=== PATIENT | female | born 1935 ===

== ENCOUNTER 2016-11-21 19:23 | Inpatient (IN) | payer MEDICARE, MEDICAID ==
[2016-11-21 19:24] VITALS: BMI 23.6
[2016-11-21] MEDS ORDERED: Nitroglycerin 2% Ointment Foilpak UD TOP STA (21:01)
[2016-11-21] MEDS ORDERED: Nitroglycerin 2% Ointment Foilpak UD TOP ONE (22:03)
[2016-11-21 22:05] LABS: BASO # 0.1 K/uL (0.0-0.2); BASO % 0.5 % (0.0-2.0); EOS # 0.2 K/uL (0.0-0.7); EOS % 1.6 % (0.0-4.0); HEMATOCRIT 42.1 % (34.0-47.0); LYMPH # 7.6 K/uL (1.0-4.3); LYMPH % 69.6 % (20.0-40.0); MEAN CELL VOLUME 88.9 fL (81.0-99.0); MEAN CORPUSCULAR HEMOGLOBIN 29.2 pg (27.0-31.0); MEAN CORPUSCULAR HGB CONC 32.9 g/dL (33.0-37.0); MEAN PLATELET VOLUME 8.7 fL (7.2-11.7); MONO # 0.5 K/uL (0.0-0.8); MONO % 4.5 % (0.0-10.0); NRBC % 0.1 % (0.0-2.0); RED CELL DISTRIBUTION WIDTH 15.9 % (11.5-14.5)
[2016-11-21 22:40] LABS: CHLORIDE 99 mmol/L (98-107); SODIUM 141 mmol/L (132-148)
[2016-11-21 22:42] LABS: BILIRUBIN,TOTAL 0.7 mg/dL (0.2-1.3); CARBON DIOXIDE 29 mmol/L (22-30); GFR AFRICAN-AMERICAN > 60
[2016-11-21 22:43] LABS: ALB/GLOB RATIO 1.4 (1.0-2.1); ALKALINE PHOSPHATASE 80 U/L (38-126); ALT/SGPT 25 U/L (9-52); AST/SGOT 50 U/L (14-36); BLOOD UREA NITROGEN 17 mg/dL (7-17); CALCIUM 8.6 mg/dl (8.6-10.4); GLUCOSE,RANDOM 91 mg/dL (65-105); TOTAL PROTEIN 6.8 g/dL (6.3-8.3)
--- NOTE | 2016-11-21 23:32 | C.PDOC ---
History Of Present Illness Patient is an 81 year old female who was referred to the ER by PMD for increased pedal edema and SOB. Patient takes daily diuretic. Denies any fever, nausea, or vomiting. Time Seen by Provider: 11/21/16 20:56 Chief Complaint (Nursing): Lower Extremity Problem/Injury History Per: Patient History/Exam Limitations: no limitations Onset/Duration Of Symptoms: Days Current Symptoms Are (Timing): Still Present Recent travel outside of the [place]: No Additional History Per: Patient Past Medical History Reviewed: Historical Data, Nursing Documentation, Vital Signs Vital Signs: Last Vital Signs Temp 97.9 F 11/21/16 19:55 Pulse 63 11/21/16 23:44 Resp 20 11/21/16 23:44 BP 136/90 11/21/16 23:44 Pulse Ox 95 11/21/16 23:44 - Medical History PMH: Alzheimer's Disease (Mild dementia and confusion noted), Anxiety, Arthritis (b/l knees and ankles), Asthma, Back Problems (scaitica), Bipolar Disorder (Patient used to take multiple medications, being seen by a psychiatrist), CAD, Cardia Arrhythmia (palpitation), COPD, CVA, Diverticulitis, Gastritis, HTN, Hypercholesterolemia, Hypothyroidism, Osteoporosis, Sleep Apnea Surgical History: Appendectomy, Cholecystectomy, - [facility] Procedures COLONOSCOPY (03/28/15) INJECT/INFUSE NEC (01/01/14) OCCUPATIONAL THERAPY (05/13/13) PHYSICAL THERAPY NEC (05/13/13) Family History: States: Unknown Family Hx - Social History Hx Tobacco Use: No Hx Alcohol Use: No Hx Substance Use: No - Immunization History Hx Tetanus Toxoid Vaccination: Yes Hx Influenza Vaccination: Yes Hx Pneumococcal Vaccination: Yes Review Of Systems Constitutional: Negative for: Fever Respiratory: Positive for: Shortness of Breath Gastrointestinal: Negative for: Nausea, Vomiting Musculoskeletal: Positive for: Other (Increased pedal edema) Physical Exam - Physical Exam Appears: Non-toxic Skin: Normal Color, Warm, Dry Head: Atraumatic, Normacephalic Oral Mucosa: Moist Chest: Symmetrical, No Tenderness Cardiovascular: Rhythm Regular, JVD Respiratory: Rales (Bilateral base), No Rhonchi, No Wheezing Gastrointestinal/Abdominal: Soft, No Tenderness Extremity: Pedal Edema (3/4 Bilateral) Neurological/Psych: Oriented x3, Normal Speech, Normal Cognition ED Course And Treatment - Laboratory Results Result Diagrams: 11/21/16 22:02 11/21/16 22:24 Lab Interpretation: Normal (trop/bnp neg.) ECG: Interpreted By Me ECG Rhythm: Sinus Rhythm ECG Interpretation: Normal Rate From EC O2 Sat by Pulse Oximetry: 97 Pulse Ox Interpretation: Normal - Radiology CXR: Interpreted by Me CXR Interpretation: Yes: Heart Size, Other (+CHF) Progress Note: EKG and CXR ordered. Lasix IVP and nitro-bid 2% ointment administered. Reevaluation Time: 23:34 Reassessment Condition: Improved - Physician Consult Information Outcome Of Conversation: 2330: d/w Dr. Aiken- salvador referred- ok to Tele Obs. Medical Decision Making Medical Decision Making: Clinical CHF, normal BNP Disposition Doctor Will See Patient In The: Office Counseled Patient/Family Regarding: Studies Performed, Diagnosis - Disposition Disposition: HOSPITALIZED Disposition Time: 23:34 Condition: GOOD - Clinical Impression Clinical Impression: CHF (congestive heart failure) - Scribe Statement The provider has reviewed the documentation as recorded by the Scribraine Boswell All medical record entries made by the Scribe were at my direction and personally dictated by me. I have reviewed the chart and agree that the record accurately reflects my personal performance of the history, physical exam, medical decision making, and the department course for this patient. I have also personally directed, reviewed, and agree with the discharge instructions and disposition.
[2016-11-22] MEDS ORDERED: Magnesium Hydroxide Susp 30 ml UD PO PRN (00:28)
[2016-11-22 05:51] LABS: BASO % 0.4 % (0.0-2.0); EOS # 0.2 K/uL (0.0-0.7); EOS % 1.6 % (0.0-4.0); HEMATOCRIT 43.9 % (34.0-47.0); LYMPH # 7.8 K/uL (1.0-4.3); LYMPH % 74.7 % (20.0-40.0); MEAN CORPUSCULAR HEMOGLOBIN 29.2 pg (27.0-31.0); MEAN CORPUSCULAR HGB CONC 32.8 g/dL (33.0-37.0); MEAN PLATELET VOLUME 8.4 fL (7.2-11.7); MONO # 0.5 K/uL (0.0-0.8); MONO % 4.7 % (0.0-10.0); NRBC % 0.2 % (0.0-2.0); PLATELET COUNT 143 K/uL (130-400); RED CELL DISTRIBUTION WIDTH 16.3 % (11.5-14.5); WHITE BLOOD COUNT 10.5 K/uL (4.8-10.8)
[2016-11-22 06:01] LABS: CHLORIDE 103 mmol/L (98-107); POTASSIUM 3.3 mmol/L (3.6-5.2); SODIUM 144 mmol/L (132-148)
[2016-11-22 06:03] LABS: GFR AFRICAN-AMERICAN > 60
[2016-11-22 06:04] LABS: ALB/GLOB RATIO 1.4 (1.0-2.1); ALKALINE PHOSPHATASE 85 U/L (38-126); ALT/SGPT 35 U/L (9-52); AST/SGOT 39 U/L (14-36); BILIRUBIN,TOTAL 0.6 mg/dL (0.2-1.3); BLOOD UREA NITROGEN 15 mg/dL (7-17); CARBON DIOXIDE 29 mmol/L (22-30); GLUCOSE,RANDOM 86 mg/dL (65-105); TOTAL PROTEIN 6.5 g/dL (6.3-8.3)
[2016-11-22 06:05] LABS: CALCIUM 8.7 mg/dl (8.6-10.4)
[2016-11-22] MEDS: Levothyroxine 75 MCG TAB PO SCH (06:16)
[2016-11-22 06:32] LABS: EOSINOPHIL 2 % (0-4); NEUTROPHIL 9 % (50-75); REACTIVE LYMPHOCYTES 66 % (0-0); SMUDGE CELLS PRESENT; TOTAL CELLS COUNTED 100
--- NOTE | 2016-11-22 08:26 | RAD ---
HISTORY: SOB COMPARISON: Chest x-ray performed 08/09/16 TECHNIQUE: Chest, one view. FINDINGS: LUNGS: Mild pulmonary venous congestion. No focal consolidation. Please note that chest x-ray has limited sensitivity for the detection of pulmonary masses. PLEURA: No significant pleural effusion identified. No definite pneumothorax . CARDIOVASCULAR: Overlying cardiomegaly. Atherosclerotic calcifications of the aorta. OSSEOUS STRUCTURES: Degenerative changes. VISUALIZED UPPER ABDOMEN: Unremarkable. OTHER FINDINGS: None. IMPRESSION: Mild pulmonary venous congestion.
[2016-11-22] MEDS: Enoxaparin 30 mg Syringe SC SCH (10:09)
[2016-11-22] MEDS: Multivitamin With Minerals Tab PO SCH (10:09)
--- NOTE | 2016-11-22 13:41 | CP.PCM.HP ---
History of Present Illness - History of Present Illness History of Present Illness: COMPREHENSIVE HISTORY & PHYSICAL EXAM HPI PRESENTED TO ER WITH SOB AND PROGRESSIVE EDEMA OF LEGS. PT CLINICALLY HAD CHF AND IMPROVED ON DIURESIS . PT HAS LESS SOB. NO CP PAST HIST. HTN/TIA/VERTIGO/CHF/COPD/ PERSONAL HIST: Smoking. N Alcohol. N Allergy N Travel_- . FAMILY HIST : ROS : Constitutional: Negative for weight change, chills, night sweats, POS fatigue and usage of assist device. Eyes: Negative for redness, swelling, itching, discharge, vision changes, blurry vision, double vision, glaucoma, cataracts, Ears: Negative for hearing loss, ringing, , tinnitus, vertigo Nose: Negative for rhinorrhea, stuffiness, sniffing, itching, postnasal drip, discoloration, nasal congestion and epistaxis. Throat: Negative for throat clearing, sore throat, hoarseness, difficulty swallowing and difficulty speaking. Respiratory: Negative for cough, chest tightness, sputum or phlegm, chronic cough, hemoptysis, wheezing, snoring at night, pleuritic chest pain and daytime somnolence. Cardiovascular POS FOR palpitations, orthopnea, PND, Edema of legs, leg cramps , NO angina, claudication, , irregular heartbeat, Neurology: Negative for irritability, muscle weakness, numbness and tingling, seizures, tremors, migraines, slurred speech, syncope, memory loss, mood changes , recurrent headaches Gastrointestinal: Negative for difficulty swallowing, diarrhea, constipation, black stools, rectal bleeding, nausea, flatulence, reflux, poor appetite, changes in bowel habits, abdominal pain Genitourinary: Negative for frequent urination, hematuria, discharge, incontinence, urinary retention, frequent UTI, Psychiatric: Negative for depression, anxiety/panic, suicidal tendencies, Musculoskeletal: Negative for swollen joints, back pain, , neck pain, morning stiffness of joints, . Skin: Negative for rash, ulcers, itching, dry skin and pigmented lesions. P/E: Constitutional: Appears stated age and in no apparent distress. Head: Normocephalic. Ears: External ear canals patent without inflammation. Tympanic membranes intact with normal light reflex and landmark. Eyes: Pupils are central, bilaterally equal, symmetrical and reacts to light with normal movements and no icterus or pallor. Nose: External nares are patent. Mucosa is pink Mouth-Throat: Good general appearance and condition. No post-pharyngeal/oropharyngeal erythema and tonsillar hypertrophy. Good dental hygiene. Neck-Lymphatic: Neck is supple with normal ROM, no thyromegaly, lymph nodes or masses. JVD is normal with no carotid bruit. Lungs: CORTNEY CREPTS Cardiovascular: S1 and S2 are normal with no murmurs, gallops and rub. GI Exam: No hepatomegaly. Abdomen is soft and non-tender. No Organomegaly , masses or hernias are evident and bowel sounds are normal and active. Neurology: Higher function and all cranial nerves intact, with no gross motor or sensory deficit. Superficial and deep reflexes are normal with downwards planters. No cerebellar deficit with normal gait. Musculoskeletal: No tender spots with normal curvature of the spine with no swelling or restricted ROM of the small and large joints. Extremities: Homans sign absent. Intact pulses with no pitting edema, calf tenderness or skin color changes. Skin: No rash, eruptions or abnormal skin pigmentation LAB/RADIOLOGY: ASSESMENT : NORMAL EF LV ACUTE DIASTOLIC HF HTN VERTIGO PLAN: DIURETICS JOHNNY INHIBITOR Present on Admission - Present on Admission Any Indicators Present on Admission: No Past Patient History - Infectious Disease Hx of Infectious Diseases: None - Tetanus Immunizations Tetanus Immunization: Up to Date - Past Medical History & Family History Past Medical History?: Yes - Past Social History Smoking Status: Former Smoker - CARDIAC Hx Cardia Arrhythmia: Yes (palpitation) Hx Hypercholesterolemia: Yes Hx Hypertension: Yes - PULMONARY Hx Asthma: Yes Hx Chronic Obstructive Pulmonary Disease (COPD): Yes Hx Sleep Apnea: Yes - NEUROLOGICAL Hx Alzheimer's Disease: Yes (Mild dementia and confusion noted) - HEENT Hx HEENT Problems: Yes Hx Deafness: Yes (LEFT EAR) - RENAL Hx Chronic Kidney Disease: No - ENDOCRINE/METABOLIC Hx Hypothyroidism: Yes - INTEGUMENTARY Hx Dermatological Problems: Yes Hx Basil Cell: Yes (FACE, ARMS) - MUSCULOSKELETAL/RHEUMATOLOGICAL Hx Arthritis: Yes (b/l knees and ankles) Hx Osteoporosis: Yes - GASTROINTESTINAL Hx Diverticulitis: Yes Hx Gastritis: Yes - GENITOURINARY/GYNECOLOGICAL Hx Genitourinary Disorders: Yes Hx Incontinence: Yes - PSYCHIATRIC Hx Anxiety: Yes Hx Bipolar Disorder: Yes (Patient used to take multiple medications, being seen by a psychiatrist) Hx Substance Use: No - SURGICAL HISTORY Hx Appendectomy: Yes Hx Cholecystectomy: Yes - ANESTHESIA Hx Anesthesia: Yes Hx Anesthesia Reactions: No Hx Malignant Hyperthermia: No Meds Allergies/Adverse Reactions: Allergies Allergy/AdvReac Type Severity Reaction Status Date / Time Carbapenems Allergy Intermediate Verified 11/21/16 20:01 Cephalosporins Allergy Intermediate Verified 11/21/16 20:01 aztreonam Allergy Mild Verified 11/21/16 20:01 aspirin Allergy Verified 11/21/16 20:01 ciprofloxacin [From Cipro] Allergy Verified 11/21/16 20:01 ciprofloxacin HCl Allergy Verified 11/21/16 20:01 [From Cipro] Penicillins Allergy Verified 11/21/16 20:01 Results - Vital Signs Recent Vital Signs: Last Vital Signs Temp 98 F 11/22/16 13:12 Pulse 70 11/22/16 13:12 Resp 18 11/22/16 13:12 BP 144/82 11/22/16 13:12 Pulse Ox 96 11/22/16 13:12 - Labs Result Diagrams: 11/24/16 14:17 11/24/16 14:17 Labs: Laboratory Results - last 24 hr 11/22/16 11/22/16 11/22/16 05:48 05:48 05:48 WBC 10.5 RBC 4.93 Hgb 14.4 Hct 43.9 MCV 89.0 MCH 29.2 MCHC 32.8 L RDW 16.3 H Plt Count 143 MPV 8.4 Neut % (Auto) 18.6 L Lymph % (Auto) 74.7 H [place] % (Auto) 4.7 Eos % (Auto) 1.6 Baso % (Auto) 0.4 Neut # 2.0 Lymph # 7.8 H [place] # 0.5 Eos # 0.2 Baso # 0.0 Neutrophils % (Manual) 9 L Lymphocytes % (Manual) 18 L Reactive Lymphs % 66 H Monocytes % (Manual) 5 Eosinophils % (Manual) 2 Smudge Cells Present Platelet Estimate Normal Sodium 144 Potassium 3.3 L Chloride 103 Carbon Dioxide 29 Anion Gap 15 BUN 15 Creatinine 0.7 Est GFR ( Amer) > 60 Est GFR (Non-Af Amer) > 60 Random Glucose 86 Calcium 8.7 Total Bilirubin 0.6 AST 39 H D ALT 35 Alkaline Phosphatase 85 Total Creatine Kinase 187 H CK-MB (Mass) 2.66 Troponin I, Quant < 0.0120 Total Protein 6.5 Albumin 3.8 Globulin 2.7 Albumin/Globulin Ratio 1.4
--- NOTE | 2016-11-22 20:07 | CON ---
DATE: 11/22/2016 CHIEF COMPLAINT AND REASON FOR CONSULTATION: The patient was referred by Dr. Aiken for evaluation and co-management of depression and anxiety. The patient is well known to this doctor. HISTORY OF PRESENT ILLNESS: This is the case of an 81-year-old female with a history of depression and anxiety for many years and possible early onset dementia. The patient came to the Emergency Room complaining of increased swelling of her lower extremities as well as associated shortness of breath and bipedal edema. The patient states she has been taking diuretics, but she states this became worse and she was admitted for possible exacerbation of congestive heart failure. The patient was referred for comanagement as the patient has a history of depression and anxiety. The patient was last seen in my office last Thursday for a follow up and she was taking Remeron and Xanax and was doing well. The patient was ambulating well. She was still attending her day program at [employer] but complaining that she has been drinking a lot fluid and watching her salt, but she noticed that her legs are becoming more swollen and also she has having problems breathing. She said that she has been taking a diuretic but it was not working and was admitted for treatment. The patient is very worried about her swollen extremities as this patient lives alone. PAST PSYCHIATRIC HISTORY: Has a long history of depression and anxiety. The patient has been my patient for many, many years. She was recently in rehab at [facility]. She was seen earlier this week in my office for followup. Still on Xanax and Remeron. The patient has a history of chronic insomnia and anxiety. She has tried Ambien in the past. PAST MEDICAL HISTORY: History of dementia, history of arthritis, back problems , CAD, history of gastritis, hypothyroidism, osteoporosis, sleep apnea. DRUG AND ALCOHOL HISTORY: Denies any. ALLERGIES: THE PATIENT IS ALLERGIC TO ASPIRIN, CIPRO, PENICILLIN, AZTREONAM, CEPHALOSPORIN, CARBAPENEMS. DRUG AND ALCOHOL HISTORY: Denies any. PSYCHOSOCIAL HISTORY: The patient lives by herself. 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 The patient attends the [employer] program for day structure. CURRENT MEDICATIONS: The patient is on Apresoline, Catapres, Crestor, Flomax, Lasix, Lovenox, Pepcid, Plavix, Remeron 45 mg at bedtime, Xanax 1 mg q.8, Tenormin, Synthroid. LABORATORY DATA: The patient's WBC is 10.5, H and H is 14.4/43.9. Creatinine is 0.7, albumin is 3.8, globulin is 2.7. VITAL SIGNS: Temperature is 98, pulse is 70, blood pressure is 144/82, respiration is 18, and oxygen saturation is 96. REVIEW OF SYSTEMS: GENERAL: The patient is feeling weak, but alert and oriented x 3. She is forgetful at times. She is lying in bed. SKIN: No diaphoresis. HEENT: No headache, no dizziness. NECK: Supple. RESPIRATORY: No dyspnea. CARDIOVASCULAR: No chest pain. GASTROINTESTINAL: She has no nausea or vomiting. EXTREMITIES: Complaining of swelling of her lower extremities, especially in the foot. NEUROLOGIC: Forgetful at times. GENITOURINARY: No dysuria. MENTAL STATUS EXAMINATION: Elderly female who looks stated age, about 5 feet 8 inches, weight is 182 pounds. Mood is anxious, somatic. Not depressed. Affect is reactive. Speech spontaneous. Thought process: Coherent but forgetful at times. Thought content: Preoccupied about her medical problems. No suicidal or homicidal ideation. Attention and memory seems to be limited at times. Insight and judgment fair. Impulse control is fair. IMPRESSION: History of major depression, recurrent, anxiety disorder as well as to consider mild senile dementia. PLAN AND RECOMMENDATION: The patient seen, meds reviewed. The patient is to continue Xanax 1 mg q.8 for her anxiety; however, the patient is on a high dose of Remeron. Remeron being an SSRI can cause water retention as a side effect, which can cause swelling of her lower extremities. I will discontinue that and I gave instead Ambien 5 mg at bedtime to help her sleep. The patient has tried Ambien in the past. We will try to keep patient off SSRI for now as the patient is depressed and the patient is having some swelling of her lower extremities secondary to water retention. The patient now is taking Lasix. We will try to introduce an antidepressant should the need arises, but for now will keep her on Xanax and then low dose Ambien for her insomnia. The patient has chronic insomnia. The patient also has a history of sleep apnea. Continue treatment plan as outlined. Thank you very much for the consult. Reginadl De Leon MD cc: [phone] TT: 11/22/2016 20:06:20 Confirmation # [id number] Dictation # [id number] MTDD
[2016-11-22 20:18] LABS: RBC URINE 1 /hpf (0-3); URINE BACTERIA RARE (<OCC); URINE BILIRUBIN NEGATIVE (NEGATIVE); URINE BLOOD NEGATIVE (NEGATIVE); URINE COLOR Yellow (YELLOW); URINE GLUCOSE (UA) NORMAL (Normal); URINE KETONE NEGATIVE (NEGATIVE); URINE PROTEIN NEGATIVE (NEGATIVE); URINE UROBILINOGEN NORMAL mg/dL (0.2-1.0); WBC URINE 9 /hpf (0-5)
[2016-11-22 20:20] LABS: URINE LEUKOCYTE ESTERASE TRACE Leu/uL (Negative)
[2016-11-23] MEDS: Levothyroxine 75 MCG TAB PO SCH (06:09)
[2016-11-23 09:06] LABS: BASO % 0.2 % (0.0-2.0); EOS # 0.1 K/uL (0.0-0.7); EOS % 1.2 % (0.0-4.0); HEMATOCRIT 43.9 % (34.0-47.0); LYMPH # 7.3 K/uL (1.0-4.3); LYMPH % 70.7 % (20.0-40.0); MEAN CELL VOLUME 89.3 fL (81.0-99.0); MEAN CORPUSCULAR HGB CONC 32.5 g/dL (33.0-37.0); MEAN PLATELET VOLUME 8.9 fL (7.2-11.7); MONO # 0.4 K/uL (0.0-0.8); MONO % 3.6 % (0.0-10.0); PLATELET COUNT 165 K/uL (130-400); WHITE BLOOD COUNT 10.3 K/uL (4.8-10.8)
[2016-11-23 09:33] LABS: CHLORIDE 101 mmol/L (98-107); SODIUM 141 mmol/L (132-148)
[2016-11-23 09:34] LABS: POTASSIUM 3.2 mmol/L (3.6-5.2)
[2016-11-23 09:36] LABS: ALB/GLOB RATIO 1.3 (1.0-2.1); ALKALINE PHOSPHATASE 73 U/L (38-126); AST/SGOT 37 U/L (14-36); BILIRUBIN,TOTAL 0.5 mg/dL (0.2-1.3); BLOOD UREA NITROGEN 18 mg/dL (7-17); CALCIUM 8.8 mg/dl (8.6-10.4); CARBON DIOXIDE 31 mmol/L (22-30); GFR AFRICAN-AMERICAN > 60; GLUCOSE,RANDOM 94 mg/dL (65-105); TOTAL PROTEIN 6.3 g/dL (6.3-8.3)
[2016-11-23 09:37] LABS: ALT/SGPT 35 U/L (9-52)
[2016-11-23 09:56] LABS: TOTAL CELLS COUNTED 100
[2016-11-23 09:57] LABS: NEUTROPHIL 11 % (50-75); REACTIVE LYMPHOCYTES 30 % (0-0)
[2016-11-23] MEDS ORDERED: Ergocalciferol 50,000 Intl Units Cap PO SCH (10:00)
[2016-11-23] MEDS: Enoxaparin 30 mg Syringe SC SCH (10:25)
[2016-11-23] MEDS: Multivitamin With Minerals Tab PO SCH (10:27)
--- NOTE | 2016-11-23 14:15 | CP.PCM.PN ---
Subjective - Date & Time of Evaluation Date of Evaluation: 11/23/16 Time of Evaluation: 14:14 - Subjective Subjective: TNI ARE NEG EKG NO CHANGE ON IV LASIX LABS [place] AMBULATE Objective - Vital Signs/Intake and Output Vital Signs (last 24 hours): Temp Pulse Resp BP Pulse Ox 97.7 F 65 20 124/73 95 11/23/16 08:25 11/23/16 08:25 11/23/16 08:25 11/23/16 10:27 11/23/16 08:25 - Medications Medications: Current Medications Acetaminophen (Tylenol 325mg Tab) 650 mg PO Q4H PRN PRN Reason: Pain, Mild (1-3) Last Admin: 11/23/16 04:50 Dose: 650 mg Alprazolam (Xanax) 1 mg PO Q8H [facility] Last Admin: 11/23/16 08:33 Dose: 1 mg Atenolol (Tenormin) 50 mg PO BID [facility] Last Admin: 11/23/16 10:26 Dose: 50 mg Clonidine HCl (Catapres) 0.2 mg PO BID [facility] Last Admin: 11/23/16 10:26 Dose: 0.2 mg Clopidogrel Bisulfate (Plavix) 75 mg PO DAILY [facility] Last Admin: 11/23/16 10:27 Dose: 75 mg Enoxaparin Sodium (Lovenox) 30 mg SC DAILY [facility] Last Admin: 11/23/16 10:25 Dose: 30 mg Ergocalciferol (Drisdol 50,000 Intl Units Cap) 1 cap PO QWK [facility] Last Admin: 11/23/16 10:26 Dose: 1 cap Famotidine (Pepcid) 20 mg PO BID [facility] Last Admin: 11/23/16 10:26 Dose: 20 mg Furosemide (Lasix) 40 mg IVP DAILY [facility] Last Admin: 11/23/16 10:27 Dose: 40 mg Hydralazine HCl (Apresoline) 50 mg PO BID [facility] Last Admin: 11/23/16 10:26 Dose: 50 mg Levothyroxine Sodium (Synthroid) 75 mcg PO DAILY@0630 [facility] Last Admin: 11/23/16 06:09 Dose: 75 mcg Lisinopril (Zestril) 40 mg PO DAILY [facility] Last Admin: 11/23/16 10:26 Dose: 40 mg Magnesium Hydroxide (Milk Of Magnesia) 30 ml PO DAILY PRN PRN Reason: Constipation Multivitamins/Minerals (Therapeutic-M Tab) 1 tab PO DAILY [facility] Last Admin: 11/23/16 10:27 Dose: 1 tab Rosuvastatin Calcium (Crestor) 5 mg PO HS [facility] Last Admin: 11/22/16 21:58 Dose: 5 mg Tamsulosin HCl (Flomax) 0.4 mg PO DAILY [facility] Last Admin: 11/23/16 10:26 Dose: 0.4 mg Zolpidem Tartrate (Ambien) 5 mg PO HS [facility] Last Admin: 11/22/16 21:58 Dose: 5 mg - Labs Labs: 11/23/16 08:55 11/23/16 08:55 PT 10.8 SECONDS (9.7-12.2) 11/21/16 22:02 INR 1.0 11/21/16 22:02 APTT 29 SECONDS (21-34) 11/21/16 22:02
--- NOTE | 2016-11-23 17:41 | PN ---
DATE: 11/23/2016 SUBJECTIVE: The patient is seen. The patient states she slept better last night. The nurse reporte harini patient brought a big bag of all her medicines to the hospital, about 18 pill bottles and the pill bottles were given to the pharmacy. The patient has periods of confusion and told that she should st reamline her medication as patient is taking her meds sometimes not as prescribed. I took her off th e Remeron due to her swelling of her lower extremities and that patient also may have some Ambien 5 m g at bedtime and her Xanax. The patient should dispose all her meds that she is not using to avoid c onfusion of the intake of her meds. VITAL SIGNS: Temperature is 97.3, pulse rate 61, 96/65, respirations 20, oxygen saturation is 98%. REVIEW OF SYSTEMS: GENERAL: The patient is alert, verbal, forgetful, seen in her room, resting. She said she had a goo d sleep last night. The patient stated she was told by Dr. Aiken she will be staying here a few mor e days. SKIN: No diaphoresis. HEENT: No headache, no dizziness. NECK: Supple. RESPIRATORY: No dyspnea. CARDIOVASCULAR: No chest pain. GASTROINTESTINAL: She is eating better. EXTREMITIES: Swelling improving. Her gait is unsteady. GENITOURINARY: No dysuria. NEUROLOGIC: Alert, forgetful. MENTAL STATUS EXAMINATION: Elderly female, looks stated age, oriented x 3, but forgetful. Speech sp ontaneous. Affect is reactive. Mood is calm. Thought process forgetful. Thought content: The pat ient reports no psychosis. No suicidal or homicidal ideation. Attention and memory still limited. Insight and judgment limited. Impulse control is fair at this time. IMPRESSION: History of recurrent depression, anxiety and dementia. PLAN AND RECOMMENDATIONS: The patient seen, meds reviewed. Continue Xanax 1 mg q. 8 as well as Ambi en 5 mg at bedtime. The patient should dispose her medicines that she is not taking as patient has a big bag of collections and has periods of confusion and may take the medicine by mistake. Reginald De Leon MD cc: [phone] TT: 11/23/2016 17:39:57 Confirmation # [id number] Dictation # [id number]
[2016-11-23] MEDS ORDERED: Potassium Chloride 20 mEq ER Tab PO STA (23:43)
[2016-11-24] MEDS: Levothyroxine 75 MCG TAB PO SCH (06:14)
[2016-11-24] MEDS: Enoxaparin 30 mg Syringe SC SCH (09:59)
[2016-11-24] MEDS: Multivitamin With Minerals Tab PO SCH (10:01)
--- NOTE | 2016-11-24 12:35 | CP.PCM.PN ---
Subjective - Date & Time of Evaluation Date of Evaluation: 11/24/16 Time of Evaluation: 12:34 - Subjective Subjective: CHIEF COMPLAINTS TODAY : LESS SOB EDEMA OF LEGS DECREASING WEAKNESS ON AMBULATION ROS. HEENT : N. Resp : No cough, wheezing ,pleuritic CP ,or hemoptysis Cardio : No anginal CP, PND, orthopnea, palpitation GI : No abd.pain, n/v ,diarrhea or GI bleeding . SPORTS DIRECTOR : No headache, vertigo, focal deficit. Musculoskel : No joint swelling , Derm : No rash Psych : Normal affect. Ext : No swelling ,calf pain PE. Pt. is alert awake in no distress. V.S As noted in the chart Head ,ear nose,throat and eyes : Normal. Neck : Supple with normal carotids. Lungs: BASAL CREPTS Heart : S1 & S2 normal with S4. No murmur. Abd : Soft non tender with normal bowel sounds. Neuro : Moves all ext. with no localized deficit. Ext : +2 edema with intact pulses.Non tender calves Derm : No rashes or decubitus ulcer. LABS/RADIOLOGY: ASSESSMENT/PLAN : IV LASIX MONITOR BP Objective - Vital Signs/Intake and Output Vital Signs (last 24 hours): Temp Pulse Resp BP Pulse Ox 97.8 F 65 18 117/70 98 11/24/16 07:20 11/24/16 09:00 11/24/16 07:20 11/24/16 11:57 11/24/16 07:20 Intake and Output: 11/24/16 11/24/16 11:59 23:59 Intake Total 240 Balance 240 - Medications Medications: Current Medications Acetaminophen (Tylenol 325mg Tab) 650 mg PO Q4H PRN PRN Reason: Pain, Mild (1-3) Last Admin: 11/23/16 04:50 Dose: 650 mg Alprazolam (Xanax) 1 mg PO Q8H [facility] Last Admin: 11/24/16 10:00 Dose: 1 mg Atenolol (Tenormin) 50 mg PO BID [facility] Last Admin: 11/24/16 10:00 Dose: 50 mg Clonidine HCl (Catapres) 0.2 mg PO BID [facility] Last Admin: 11/24/16 10:01 Dose: 0.2 mg Clopidogrel Bisulfate (Plavix) 75 mg PO DAILY [facility] Last Admin: 11/24/16 10:00 Dose: 75 mg Enoxaparin Sodium (Lovenox) 30 mg SC DAILY [facility] Last Admin: 11/24/16 09:59 Dose: 30 mg Ergocalciferol (Drisdol 50,000 Intl Units Cap) 1 cap PO QWK [facility] Last Admin: 11/23/16 10:26 Dose: 1 cap Famotidine (Pepcid) 20 mg PO BID [facility] Last Admin: 11/24/16 10:01 Dose: 20 mg Furosemide (Lasix) 40 mg IVP DAILY [facility] Last Admin: 11/24/16 11:57 Dose: 40 mg Hydralazine HCl (Apresoline) 50 mg PO BID [facility] Last Admin: 11/24/16 09:59 Dose: 50 mg Levothyroxine Sodium (Synthroid) 75 mcg PO DAILY@0630 [facility] Last Admin: 11/24/16 06:14 Dose: 75 mcg Lisinopril (Zestril) 40 mg PO DAILY [facility] Last Admin: 11/24/16 10:00 Dose: 40 mg Magnesium Hydroxide (Milk Of Magnesia) 30 ml PO DAILY PRN PRN Reason: Constipation Multivitamins/Minerals (Therapeutic-M Tab) 1 tab PO DAILY [facility] Last Admin: 11/24/16 10:01 Dose: 1 tab Rosuvastatin Calcium (Crestor) 5 mg PO HS [facility] Last Admin: 11/23/16 22:15 Dose: 5 mg Tamsulosin HCl (Flomax) 0.4 mg PO DAILY [facility] Last Admin: 11/24/16 10:01 Dose: 0.4 mg Zolpidem Tartrate (Ambien) 5 mg PO HS [facility] Last Admin: 11/23/16 22:15 Dose: 5 mg - Labs Labs: 11/23/16 08:55 11/23/16 08:55 PT 10.8 SECONDS (9.7-12.2) 11/21/16 22:02 INR 1.0 11/21/16 22:02 APTT 29 SECONDS (21-34) 11/21/16 22:02
--- NOTE | 2016-11-24 14:15 | PN ---
DATE: 11/24/2016 SUBJECTIVE: The patient is seen. The patient continues to improve clinically. She claims that her swelling of her legs has improved. The patient, however, is still forgetful. She states she had a g ood night's sleep. The patient seems to do better with the Ambien and Xanax combination. She has be en taken off the Remeron as Remeron can cause water retention side effects which can cause swelling o f her lower extremities. The patient is not clinically depressed at this time. VITAL SIGNS: Temperature is 97.8, pulse is 65, blood pressure 117/70, respirations 18, oxygen sats 9 8%. REVIEW OF SYSTEMS: GENERAL: The patient is alert, verbal, still forgetful at times, but seen in her room, sitting, eati ng her lunch. SKIN: No diaphoresis. HEENT: No headache, no dizziness. NECK: Supple. RESPIRATORY: No dyspnea. CARDIOVASCULAR: No chest pain. GASTROINTESTINAL: She is eating better. EXTREMITIES: Swelling of the lower extremities has improved. MUSCULOSKELETAL: Still weakness, improving. NEUROLOGIC: Alert, oriented x 3, but forgetful at times. The patient also states she does not want to go for subacute rehab; she wants to go home once medically cleared. MENTAL STATUS EXAMINATION: Elderly female who looks dazed. Alert, oriented x 3 with periods of forg etfulness, which have progressed more lately. Speech spontaneous. Affect is reactive. Mood is calm . Thought process forgetful. Thought content: The patient wants to go home once she is medically c leared from the hospital. No psychosis. No suicidal or homicidal ideation. Attention and memory se ems to be limited. Insight and judgment fair. Impulse control is fair. IMPRESSION: History of recurrent depression and anxiety as well as possible dementia, history of con gestive heart failure. PLAN AND RECOMMENDATIONS: The patient seen, meds reviewed. Continue present psych meds. Continue t reatment plan. However, the patient has a bag of medications that she brought to the hospital. The patient needs to have her medications streamlined and also unnecessary meds to be disposed as the martha buck has a history of dementia and may take her meds by mistake. She also wants to go back to the [facility] program where she goes 5 days a week and she would benefit from a visiting nurse to visit her. T he patient needs somebody to monitor her meds. Despite that the patient has been compliant with medi cation, but the patient lately has been having increasing periods of memory loss, which can put her at risk of taking other medication by mistake. At times, the patient takes medications by mistake, a nd the patient at times does not know the doses of the medicine that she is supposed to take. Reginald De Leon MD cc: [id number] TT: 11/24/2016 14:14:36 Confirmation # [id number] Dictation # [id number] an
[2016-11-24 14:30] LABS: CHLORIDE 102 mmol/L (98-107); SODIUM 142 mmol/L (132-148)
[2016-11-24 14:31] LABS: POTASSIUM 3.5 mmol/L (3.6-5.2)
[2016-11-24 14:33] LABS: ALB/GLOB RATIO 1.3 (1.0-2.1); ALKALINE PHOSPHATASE 89 U/L (38-126); ALT/SGPT 33 U/L (9-52); AST/SGOT 43 U/L (14-36); BASO % 0.3 % (0.0-2.0); BILIRUBIN,TOTAL 0.4 mg/dL (0.2-1.3); BLOOD UREA NITROGEN 20 mg/dL (7-17); CALCIUM 8.6 mg/dl (8.6-10.4); CARBON DIOXIDE 28 mmol/L (22-30); EOS # 0.1 K/uL (0.0-0.7); EOS % 1.1 % (0.0-4.0); GFR AFRICAN-AMERICAN > 60; GLUCOSE,RANDOM 117 mg/dL (65-105); HEMATOCRIT 43.5 % (34.0-47.0); LYMPH # 7.4 K/uL (1.0-4.3); LYMPH % 73.1 % (20.0-40.0); MEAN CELL VOLUME 89.2 fL (81.0-99.0); MEAN CORPUSCULAR HEMOGLOBIN 29.6 pg (27.0-31.0); MEAN CORPUSCULAR HGB CONC 33.2 g/dL (33.0-37.0); MEAN PLATELET VOLUME 8.9 fL (7.2-11.7); MONO # 0.4 K/uL (0.0-0.8); MONO % 3.8 % (0.0-10.0); PLATELET COUNT 157 K/uL (130-400); TOTAL PROTEIN 6.4 g/dL (6.3-8.3); WHITE BLOOD COUNT 10.1 K/uL (4.8-10.8)
[2016-11-24 15:40] LABS: NEUTROPHIL 11 % (50-75); REACTIVE LYMPHOCYTES 40 % (0-0); TOTAL CELLS COUNTED 100
[2016-11-25] MEDS: Levothyroxine 75 MCG TAB PO SCH (06:19)
[2016-11-25 08:06] VITALS: RESP 18; TEMP 98.3; O2SAT 95
[2016-11-25] MEDS ORDERED: Potassium Chloride 20 mEq ER Tab PO ONE (10:15)
--- NOTE | 2016-11-25 10:43 | PN ---
DATE: 11/25/2016 SUBJECTIVE: The patient is seen. The patient states she will be going home today. The swelling of her lower extremities has improved. The patient, however, still has periods of forgetfulness and adv ised to streamline her meds. The patient is currently sleeping better. Currently on Ambien and Xana x combination. VITAL SIGNS: Temperature is 98.3, pulse rate 73, blood pressure 160/93, respiration is 18, oxygen sa t is 95%. The patient does not want to go to rehab at this time. She wants to go home. REVIEW OF SYSTEMS: GENERAL: The patient is alert, verbal, oriented x 3, seen in her room, clinically much improved. Th e patient wants to go home today. SKIN: No diaphoresis. HEENT: No headache, no dizziness. NECK: Supple. RESPIRATORY: No dyspnea. CARDIOVASCULAR: No chest pain. GASTROINTESTINAL: She is eating well. EXTREMITIES: The swelling has improved. The patient is also ambulating. MUSCULOSKELETAL: Weakness improving. NEUROLOGIC: Alert, oriented x 3, but still forgetful at times. MENTAL STATUS EXAMINATION: Elderly female, looks stated age. Alert, oriented x 3. Speech spontaneo us. Affect is reactive. Mood is calm. Thought process forgetful. Thought content: The patient wa nts to go home. No psychosis. No suicidal or homicidal ideation. Attention and memory still limite d. Insight and judgment limited. Impulse control is fair at this time. IMPRESSION: History of recurrent depression, anxiety as well as dementia. PLAN AND RECOMMENDATIONS: The patient seen, meds reviewed. The patient is psychiatrically stable to go back home. The patient advised to continue Xanax and Ambien. The patient can follow up in [place] in 2 weeks. She was just seen last week. The patient also is to stay off from SSRI. The patie nt was taking Remeron and it is giving her water retention side effects and swelling of her lower ext remities. The patient may follow up with [facility]. Reginald De Leon MD cc: [id number] TT: 11/25/2016 10:43:15 Confirmation # [id number] Dictation # [id number] en
[2016-11-25] MEDS: Enoxaparin 30 mg Syringe SC SCH (10:49)
[2016-11-25] MEDS: Multivitamin With Minerals Tab PO SCH (10:50)
[2016-11-25 11:14] VITALS: BP 149/92; PULSE 75
--- NOTE | 2016-11-25 13:14 | CP.PCM.DIS ---
Provider - Provider Date of Admission: 11/21/16 23:32 Attending physician: Jayshree Aiken MD Time Spent in preparation of Discharge (in minutes): 30 Hospital Course - Lab Results Lab Results: Micro Results 11/22/16 13:42 Urine Urine Culture - Final 10-50,000 CFU/ML. MULTIPLE SPECIES. PROBABLE CONTAMINATION. Most Recent Lab Values WBC 10.1 K/uL (4.8-10.8) 11/24/16 14:17 RBC 4.88 Mil/uL (3.80-5.20) 11/24/16 14:17 Hgb 14.4 g/dL (11.0-16.0) 11/24/16 14:17 Hct 43.5 % (34.0-47.0) 11/24/16 14:17 MCV 89.2 fL (81.0-99.0) 11/24/16 14:17 MCH 29.6 pg (27.0-31.0) 11/24/16 14:17 MCHC 33.2 g/dL (33.0-37.0) 11/24/16 14:17 RDW 16.0 % (11.5-14.5) H 11/24/16 14:17 Plt Count 157 K/uL (130-400) 11/24/16 14:17 MPV 8.9 fL (7.2-11.7) 11/24/16 14:17 Neut % (Auto) 21.7 % (50.0-75.0) L 11/24/16 14:17 Lymph % (Auto) 73.1 % (20.0-40.0) H 11/24/16 14:17 Mcmullen % (Auto) 3.8 % (0.0-10.0) 11/24/16 14:17 Eos % (Auto) 1.1 % (0.0-4.0) 11/24/16 14:17 Baso % (Auto) 0.3 % (0.0-2.0) 11/24/16 14:17 Neut # 2.2 K/uL (1.8-7.0) 11/24/16 14:17 Lymph # 7.4 K/uL (1.0-4.3) H 11/24/16 14:17 Mcmullen # 0.4 K/uL (0.0-0.8) 11/24/16 14:17 Eos # 0.1 K/uL (0.0-0.7) 11/24/16 14:17 Baso # 0.0 K/uL (0.0-0.2) 11/24/16 14:17 Neutrophils % (Manual) 11 % (50-75) L 11/24/16 14:17 Lymphocytes % (Manual) 45 % (20-40) H 11/24/16 14:17 Reactive Lymphs % 40 % (0-0) H 11/24/16 14:17 Monocytes % (Manual) 4 % (0-10) 11/24/16 14:17 Eosinophils % (Manual) 2 % (0-4) 11/22/16 05:48 Smudge Cells Present 11/22/16 05:48 Platelet Estimate Normal (NORMAL) 11/24/16 14:17 Poikilocytosis (manual Slight 11/23/16 08:55 Anisocytosis (manual) Slight 11/24/16 14:17 Ovalocytes Slight 11/23/16 08:55 PT 10.8 SECONDS (9.7-12.2) 11/21/16 22:02 INR 1.0 11/21/16 22:02 APTT 29 SECONDS (21-34) 11/21/16 22:02 Sodium 142 mmol/L (132-148) 11/24/16 14:17 Potassium 3.5 mmol/L (3.6-5.2) L 11/24/16 14:17 Chloride 102 mmol/L (98-107) 11/24/16 14:17 Carbon Dioxide 28 mmol/L (22-30) 11/24/16 14:17 Anion Gap 16 (10-20) 11/24/16 14:17 BUN 20 mg/dL (7-17) H 11/24/16 14:17 Creatinine 0.9 MG/DL (0.7-1.2) 11/24/16 14:17 Est GFR ( Amer) > 60 11/24/16 14:17 Est GFR (Non-Af Amer) > 60 11/24/16 14:17 POC Glucose (mg/dL) 85 mg/dL (65-110) 11/23/16 06:36 Random Glucose 117 mg/dL (65-105) H 11/24/16 14:17 Calcium 8.6 mg/dl (8.6-10.4) 11/24/16 14:17 Total Bilirubin 0.4 mg/dL (0.2-1.3) 11/24/16 14:17 AST 43 U/L (14-36) H 11/24/16 14:17 ALT 33 U/L (9-52) 11/24/16 14:17 Alkaline Phosphatase 89 U/L (38-126) 11/24/16 14:17 Total Creatine Kinase 158 U/L (30-135) H 11/22/16 13:43 CK-MB (Mass) 1.99 ng/mL (0.0-3.38) 11/22/16 13:43 Troponin I 0.0120 ng/mL (0.00-0.120) 11/21/16 22:24 Troponin I, Quant < 0.0120 ng/mL (0.00-0.120) 11/22/16 13:43 NT-Pro-B Natriuret Pep 286 pg/mL (0-900) 11/21/16 22:24 Total Protein 6.4 g/dL (6.3-8.3) 11/24/16 14:17 Albumin 3.7 g/dL (3.5-5.0) 11/24/16 14:17 Globulin 2.7 gm/dL (2.2-3.9) 11/24/16 14:17 Albumin/Globulin Ratio 1.3 (1.0-2.1) 11/24/16 14:17 Urine Color Yellow (YELLOW) 11/22/16 19:48 Urine Clarity Hazy (Clear) 11/22/16 19:48 Urine pH 6.0 (5.0-8.0) 11/22/16 19:48 Ur Specific [place] 1.013 (1.003-1.030) 11/22/16 19:48 Urine Protein Negative mg/dL (NEGATIVE) 11/22/16 19:48 Urine Glucose (UA) Normal mg/dL (Normal) 11/22/16 19:48 Urine Ketones Negative mg/dL (NEGATIVE) 11/22/16 19:48 Urine Blood Negative (NEGATIVE) 11/22/16 19:48 Urine Nitrate Negative (NEGATIVE) 11/22/16 19:48 Urine Bilirubin Negative (NEGATIVE) 11/22/16 19:48 Urine Urobilinogen Normal mg/dL (0.2-1.0) 11/22/16 19:48 Ur Leukocyte Esterase Trace Benji/uL (Negative) 11/22/16 19:48 Urine WBC (Auto) 9 /hpf (0-5) H 11/22/16 19:48 Urine RBC (Auto) 1 /hpf (0-3) 11/22/16 19:48 Ur Squamous Epith Cells 2 /hpf (0-5) 11/22/16 19:48 Urine Bacteria Rare (<OCC) 11/22/16 19:48 - Hospital Course Hospital Course: PRESENTED TO ER WITH SOB AND PROGRESSIVE EDEMA OF LEGS. PT CLINICALLY HAD CHF AND IMPROVED ON DIURESIS . PT HAS LESS SOB. NO CP PAST HIST. HTN/TIA/VERTIGO/CHF/COPD/ SERIAL TNI WERE NEG . PT. HAD NO FURTHER SWELLING IN FEET OR FLUID IN THE LUNG PT. STABLE FOR D/C HOME WILL D/W HOMEMAKER ON PROPER ADMINSTRATION OF MEDICATION IT IS POSSIBLE PT IS MIXING UP HER MEDS Discharge Plan - Follow Up Plan Condition: GOOD Disposition: HOME/ ROUTINE
--- NOTE | 2016-11-25 17:47 | PCM.HF ---
Heart Failure Core Measure - Heart Failure Ejection Fraction: 40 % or Greater (lvef 82%) JOHNNY Inhibitor Prescribed: Yes Beta-Dayana Prescribed: None Contraindication/Reason for not providing: low HR Angiotensin II Receptor Dayana Prescribed: No Contraindication/Reason for not providing: on johnny AnticoagulationTherapy for Atrial Fibrillation/Atrialflutter: No Contraindication/Reason for not providing: no afib Aldosterone Antagonist Prescribed: No Contraindication/Reason for not providing: lvef 40% Hydralazine Nitrate Prescribed: Yes Implantable Cardioverter Defibrillator Therapy: No Contraindication/Reason for not providing: lvef 40% Cardiac Resynchronization Therapy Prescribed: No Contraindication/Reason for not providing: lvef 40% - Follow up Will be discharged to: Home Follow Up Date (must be within 7 days from discharge): 11/27/16 Follow Up Time: 09:00
--- NOTE | 2016-11-26 08:53 | CARD ---
APPROVED REPORT EKG Measurement Heart [id number] <Conclusion> Normal sinus rhythm Possible Left atrial enlargement Left ventricular hypertrophy Nonspecific T wave abnormality Prolonged QT Abnormal ECG
== END 2016-11-25 14:45 | disposition home or self-care (01) | DRG 292 ==
LOC: C.ER 19:23 → C.9E 23:32 → C.6T 11-22 06:49 → C.9E 11-22 07:53 → C.6T 11-22 12:06
PROVIDERS: ADMIT Internal Medicine Cardiovascular Disease; ATTEND Internal Medicine Cardiovascular Disease
DX: I11.0 Hypertensive heart disease with heart failure (principal); F33.9 Major depressive disorder, recurrent, unspecified; J44.9 Chronic obstructive pulmonary disease, unspecified; G30.9 Alzheimer's disease, unspecified; F02.80 Dementia in other diseases classified elsewhere, unspecified severity, without behavioral disturbance, psychotic disturbance, mood disturbance, and anxiety; I50.31 Acute diastolic (congestive) heart failure; I25.10 Atherosclerotic heart disease of native coronary artery without angina pectoris; F41.9 Anxiety disorder, unspecified; E78.00 Pure hypercholesterolemia, unspecified; E03.9 Hypothyroidism, unspecified; M81.0 Age-related osteoporosis without current pathological fracture; Z86.73 Personal history of transient ischemic attack (TIA), and cerebral infarction without residual deficits; G47.30 Sleep apnea, unspecified

== ENCOUNTER 2017-02-11 03:17 | Inpatient (IN) | payer MEDICARE, MEDICAID ==
--- NOTE | 2017-02-11 03:24 | C.PDOC ---
History Of Present Illness pt touched face with remnants of fungual cream that was supposed to be applied to her nails. No f/c/n/v. speaking in complete sentences . Noticed some facial swelling and rash. Time Seen by Provider: 02/11/17 03:24 History Per: Patient History/Exam Limitations: no limitations Onset/Duration Of Symptoms: Unknown Current Symptoms Are (Timing): Still Present Context: Other Possible Cause: Medication Associated Symptoms: Skin Rash, Swelling. denies: Dyspnea, Trouble Swallowing Home/EMS Treatment: None Severity: Moderate Pain Scale Rating Of: 4 Recent travel outside of the [facility]: No Additional History Per: EMS Past Medical History Reviewed: Historical Data, Nursing Documentation, Vital Signs Vital Signs: Last Vital Signs Temp 98.2 F 02/11/17 03:25 Pulse 62 02/11/17 06:24 Resp 17 02/11/17 06:24 BP 182/100 H 02/11/17 06:24 Pulse Ox 97 02/11/17 06:24 - Medical History PMH: Alzheimer's Disease (Mild dementia and confusion noted), Anxiety, Arthritis (b/l knees and ankles), Asthma, Back Problems (scaitica), Bipolar Disorder (Patient used to take multiple medications, being seen by a psychiatrist), CAD, Cardia Arrhythmia (palpitation), COPD, CVA, Diverticulitis, Gastritis, HTN, Hypercholesterolemia, Hypothyroidism, Osteoporosis, Sleep Apnea Denies: Chronic Kidney Disease Surgical History: Appendectomy, Cholecystectomy, - [facility] Procedures COLONOSCOPY (03/28/15) INJECT/INFUSE NEC (01/01/14) OCCUPATIONAL THERAPY (05/13/13) PHYSICAL THERAPY NEC (05/13/13) Family History: States: No Known Family Hx - Social History Hx Tobacco Use: No Hx Alcohol Use: No Hx Substance Use: No - Immunization History Hx Tetanus Toxoid Vaccination: Yes Hx Influenza Vaccination: Yes Hx Pneumococcal Vaccination: Yes Review Of Systems Constitutional: Negative for: Fever, Chills Eyes: Negative for: Redness Cardiovascular: Negative for: Chest Pain Respiratory: Negative for: Shortness of Breath, Wheezing Gastrointestinal: Negative for: Nausea, Vomiting Genitourinary: Negative for: Dysuria Musculoskeletal: Negative for: Back Pain Skin: Positive for: Rash, Lesions. Negative for: Jaundice, Bruising Neurological: Negative for: Weakness Psych: Negative for: Anxiety Physical Exam - Physical Exam Appears: Non-toxic Skin: Warm, Dry, Rash Head: Normacephalic Eye(s): bilateral: Normal Inspection Nose: Normal Oral Mucosa: Moist Tongue: Normal Appearing Neck: Trachea Midline, Supple Chest: Symmetrical Cardiovascular: Rhythm Regular Respiratory: No Rales, No Rhonchi, No Wheezing Gastrointestinal/Abdominal: Soft, No Tenderness, No Distention Back: No CVA Tenderness Extremity: Normal ROM Extremity: Bilateral: Atraumatic Pulses: Left Dorsalis Pedis: Normal, Right Dorsalis Pedis: Normal Neurological/Psych: Oriented x3, Normal Speech, Normal Cognition Gait: Steady ED Course And Treatment - Laboratory Results Result Diagrams: 02/11/17 05:20 02/11/17 05:20 O2 Sat by Pulse Oximetry: 98 Pulse Ox Interpretation: Normal Disposition Counseled Patient/Family Regarding: Studies Performed, Diagnosis - Disposition Disposition Time: 03:24 Condition: FAIR - Clinical Impression Clinical Impression: Skin irritation, Cellulitis, Allergic reaction caused by a drug Physician Patient Turnover Patient Signed Over To: Kita Guthrie Handoff Comments: pending call back from dr diamond
[2017-02-11 03:27] VITALS: BMI 29.0
[2017-02-11] MEDS ORDERED: DiphenhydrAMINE 50 mg/ml Inj ONE (03:28)
[2017-02-11] MEDS ORDERED: DiphenhydrAMINE 50 mg/ml Inj IVP STA (03:49)
[2017-02-11] MEDS ORDERED: MethylPREDNISolone 40 mg Vial IVP STA (03:50)
[2017-02-11 05:25] LABS: BASO % 0.2 % (0.0-2.0); EOS # 0.3 K/uL (0.0-0.7); EOS % 2.4 % (0.0-4.0); HEMOGLOBIN 15.4 g/dL (11.0-16.0); LYMPH # 9.8 K/uL (1.0-4.3); LYMPH % 71.5 % (20.0-40.0); MEAN CELL VOLUME 90.2 fL (81.0-99.0); MEAN CORPUSCULAR HEMOGLOBIN 29.7 pg (27.0-31.0); MEAN CORPUSCULAR HGB CONC 32.9 g/dL (33.0-37.0); MEAN PLATELET VOLUME 8.7 fL (7.2-11.7); MONO # 0.4 K/uL (0.0-0.8); NEUT # 3.1 K/uL (1.8-7.0); NEUT % 22.9 % (50.0-75.0); NRBC % 0.1 % (0.0-2.0); PLATELET COUNT 147 K/uL (130-400); RBC 5.17 Mil/uL (3.80-5.20); RED CELL DISTRIBUTION WIDTH 15.9 % (11.5-14.5); WHITE BLOOD COUNT 13.7 K/uL (4.8-10.8)
[2017-02-11 05:33] LABS: ALBUMIN 4.2 g/dL (3.5-5.0)
[2017-02-11 05:35] LABS: GFR AFRICAN-AMERICAN > 60; GFR NON-AFRICAN AMERICAN > 60
[2017-02-11 05:36] LABS: ALB/GLOB RATIO 1.4 (1.0-2.1); ALT/SGPT 44 U/L (9-52); AST/SGOT 42 U/L (14-36); BLOOD UREA NITROGEN 18 mg/dL (7-17)
[2017-02-11 05:37] LABS: CALCIUM 9.2 mg/dl (8.6-10.4)
[2017-02-11 06:39] LABS: EOSINOPHIL 2 % (0-4); LYMPHOCYTE 67 % (20-40); MONOCYTE 4 % (0-10); NEUTROPHIL 24 % (50-75); PLATELET ESTIMATE NORMAL (NORMAL); REACTIVE LYMPHOCYTES 3 % (0-0); TOTAL CELLS COUNTED 100
[2017-02-11 07:26] LABS: URINE BACTERIA RARE (<OCC); URINE BILIRUBIN NEGATIVE (NEGATIVE); URINE BLOOD 1+ (NEGATIVE); URINE CLARITY Clear (Clear); URINE COLOR Straw (YELLOW); URINE GLUCOSE (UA) NORMAL (Normal); URINE LEUKOCYTE ESTERASE 3+ Leu/uL (Negative); URINE NITRATE NEGATIVE (NEGATIVE); URINE PROTEIN NEGATIVE (NEGATIVE); URINE UROBILINOGEN NORMAL mg/dL (0.2-1.0)
[2017-02-11] MEDS ORDERED: Magnesium Hydroxide Susp 30 ml UD PO PRN (13:49)
--- NOTE | 2017-02-11 14:01 | CP.PCM.HP ---
History of Present Illness - History of Present Illness History of Present Illness: COMPREHENSIVE HISTORY & PHYSICAL EXAM HPI PRESENTED TO ER WITH SWELLING OF FACE AND FEELING WARM . O TRAUMA OR CUTS ON THE FACE . RECENTLY APPLIED FUNGUL CREAM FOR NAILS ON THE FACE . WBC COUNT WAS 13.7 K PAST HIST. HTN/CARD. ARRYTHMIA /CVA/VERTIGO/COPD/ANXIETY DEPRESSION /MULTIPLE ALLEGIES PERSONAL HIST: Smoking. N Alcohol. N Allergy N Travel_- . FAMILY HIST : ROS : Constitutional: Negative for weight change, chills, night sweats POS , fatigue and usage of assist device. Eyes: Negative for redness, swelling, itching, discharge, vision changes, blurry vision, double vision, glaucoma, cataracts, Ears: Negative for hearing loss, POS VERTIGO Nose: Negative for rhinorrhea, stuffiness, sniffing, itching, postnasal drip, discoloration, nasal congestion and epistaxis. Throat: Negative for throat clearing, sore throat, hoarseness, difficulty swallowing and difficulty speaking. Respiratory: Negative for cough, chest tightness, sputum or phlegm, chronic cough, hemoptysis, wheezing, snoring at night, pleuritic chest pain and daytime somnolence. Cardiovascular: Negative for chest pain, palpitations, orthopnea, PND, Edema of legs, leg cramps, angina, claudication, syncope, irregular heartbeat, Neurology: Negative for irritability, muscle weakness, numbness and tingling, seizures, tremors, migraines, dizziness/vertigo, slurred speech, syncope, memory loss, mood changes, recurrent headaches Gastrointestinal: Negative for difficulty swallowing, diarrhea, constipation, black stools, rectal bleeding, nausea, flatulence, reflux, poor appetite, changes in bowel habits, abdominal pain Genitourinary: Negative for frequent urination, hematuria, discharge, incontinence, urinary retention, frequent UTI, Psychiatric: Negative for depression, anxiety/panic, suicidal tendencies, Musculoskeletal: Negative for swollen joints, back pain, , neck pain, morning stiffness of joints, . Skin: Negative for rash, ulcers, itching, dry skin and pigmented lesions. P/E: Constitutional: Appears stated age and in no apparent distress. Head: Normocephalic. FACE : SWOLLEN WITH ERYTHEMA . Ears: External ear canals patent without inflammation. Tympanic membranes intact with normal light reflex and landmark. Eyes: Pupils are central, bilaterally equal, symmetrical and reacts to light with normal movements and no icterus or pallor. Nose: External nares are patent. Mucosa is pink Mouth-Throat: Good general appearance and condition. No post-pharyngeal/oropharyngeal erythema and tonsillar hypertrophy. Good dental hygiene. Neck-Lymphatic: Neck is supple with normal ROM, no thyromegaly, lymph nodes or masses. JVD is normal with no carotid bruit. Lungs: Clear to percussion and auscultation with bilateral normal air entry. Cardiovascular: S1 and S2 are normal with no murmurs, gallops and rub. GI Exam: No hepatomegaly. Abdomen is soft and non-tender. No Organomegaly , masses or hernias are evident and bowel sounds are normal and active. Neurology: Higher function and all cranial nerves intact, with no gross motor or sensory deficit. Superficial and deep reflexes are normal with downwards planters. No cerebellar deficit with normal gait. Musculoskeletal: No tender spots with normal curvature of the spine with no swelling or restricted ROM of the small and large joints. Extremities: Homans sign absent. Intact pulses with no pitting edema, calf tenderness or skin color changes. Skin: No rash, eruptions or abnormal skin pigmentation LAB/RADIOLOGY: ASSESMENT : 1 CELLULITIS OF FACE 2 HTN 3 COPD 4 PLAN : ID EVAL Present on Admission - Present on Admission Any Indicators Present on Admission: No Past Patient History - Infectious Disease Hx of Infectious Diseases: None - Tetanus Immunizations Tetanus Immunization: Up to Date - Past Medical History & Family History Past Medical History?: Yes - Past Social History Smoking Status: Former Smoker - CARDIAC Hx Cardiac Disorders: Yes Hx Cardia Arrhythmia: Yes (palpitation) Hx Hypercholesterolemia: Yes Hx Hypertension: Yes - PULMONARY Hx Respiratory Disorders: Yes Hx Asthma: Yes Hx Chronic Obstructive Pulmonary Disease (COPD): Yes Hx Sleep Apnea: Yes - NEUROLOGICAL Hx Neurological Disorder: Yes Hx Alzheimer's Disease: Yes (Mild dementia and confusion noted) - HEENT Hx HEENT Problems: Yes Hx Deafness: Yes (LEFT EAR) - RENAL Hx Chronic Kidney Disease: No - ENDOCRINE/METABOLIC Hx Endocrine Disorders: Yes Hx Hypothyroidism: Yes - HEMATOLOGICAL/ONCOLOGICAL Hx Blood Disorders: No - INTEGUMENTARY Hx Dermatological Problems: Yes Hx Basil Cell: Yes (FACE, ARMS) - MUSCULOSKELETAL/RHEUMATOLOGICAL Hx Musculoskeletal Disorders: Yes Hx Arthritis: Yes (b/l knees and ankles) Hx Falls: No Hx Osteoporosis: Yes - GASTROINTESTINAL Hx Gastrointestinal Disorders: Yes Hx Diverticulitis: Yes Hx Gastritis: Yes - GENITOURINARY/GYNECOLOGICAL Hx Genitourinary Disorders: Yes Hx Incontinence: Yes - PSYCHIATRIC Hx Psychophysiologic Disorder: Yes Hx Anxiety: Yes Hx Bipolar Disorder: Yes (Patient used to take multiple medications, being seen by a psychiatrist) Hx Substance Use: No - SURGICAL HISTORY Hx Surgeries: Yes Hx Appendectomy: Yes Hx Cholecystectomy: Yes - ANESTHESIA Hx Anesthesia: Yes Hx Anesthesia Reactions: No Hx Malignant Hyperthermia: No Meds Allergies/Adverse Reactions: Allergies Allergy/AdvReac Type Severity Reaction Status Date / Time Carbapenems Allergy Intermediate Verified 02/11/17 03:28 Cephalosporins Allergy Intermediate Verified 02/11/17 03:28 aztreonam Allergy Mild Verified 02/11/17 03:28 aspirin Allergy Verified 02/11/17 03:28 ciprofloxacin [From Cipro] Allergy Verified 02/11/17 03:28 ciprofloxacin HCl Allergy Verified 02/11/17 03:28 [From Cipro] Penicillins Allergy Verified 02/11/17 03:28 Results - Vital Signs Recent Vital Signs: Last Vital Signs Temp 97.6 F 02/11/17 10:05 Pulse 89 02/11/17 10:05 Resp 20 02/11/17 10:05 BP 186/101 H 02/11/17 10:05 Pulse Ox 96 02/11/17 10:05 - Labs Result Diagrams: 02/11/17 05:20 02/11/17 05:20
--- NOTE | 2017-02-11 14:31 | CP.PCM.CON ---
History of Present Illness - History of Present Illness History of Present Illness: History of Present Illness: 81-year-old female with history of hypertension, CAD, asthma, hypothyroidism, COPD, CVA, hypercholesterolemia, anxiety and dementia mild was admitted via the emergency room because of swelling of the face and feeling very warm Patient states she recently applied some cream on the face and started developing a rash and swelling of the face. She is admitted for further evaluation. Presently patient denies any sore throat or difficulty swallowing or swelling of her tongue. Patient's face is flushed and swollen with an erythematous rash surrounding the cheeks and nasolabial folds and chin. Patient denies any rash anywhere else. Patient has multiple allergies. See chart Patient presently started on steroids and Benadryl as per ER and PMD. Infectious disease consultation requested by PMD for further evaluation FOR HER ALLERGIC REACTION AND CELLULITIS OF THE FACE.. Allergies; CARBAPENEMS, CEPHALOSPORINS, AZTREONAM, ASPIRIN, AND MORE SEE CHART. PMH: Alzheimer's Disease (Mild dementia and confusion noted), Anxiety, Arthritis (b/l knees and ankles), Asthma, Back Problems (scaitica), Bipolar Disorder (Patient used to take multiple medications, being seen by a psychiatrist), CAD, Cardia Arrhythmia (palpitation), COPD, CVA, Diverticulitis, Gastritis, HTN, Hypercholesterolemia, Hypothyroidism, Osteoporosis, Sleep Apnea Surgical History: Appendectomy, Cholecystectomy, - [facility] Procedures COLONOSCOPY (03/28/15) INJECT/INFUSE NEC (01/01/14) OCCUPATIONAL THERAPY (05/13/13) PHYSICAL THERAPY NEC (05/13/13) Family History: States: Unknown Family Hx - Social History Hx Tobacco Use: No Hx Alcohol Use: No Hx Substance Use: No - Immunization History Hx Tetanus Toxoid Vaccination: Yes Hx Influenza Vaccination: Yes Hx Pneumococcal Vaccination: Yes K Review of Systems - Constitutional Constitutional: absent: Chills, Fever - EENT Eyes: absent: Change in Vision Nose/Mouth/Throat: Dry Mouth. absent: Mouth Pain - Cardiovascular Cardiovascular: absent: Chest Pain, Dyspnea - Respiratory Respiratory: absent: Cough - Gastrointestinal Gastrointestinal: absent: Abdominal Pain, Nausea, Vomiting - Reproductive: Female Reproductive:Female: Menopausal - Integumentary Integumentary: Rash (FACE WITH CRUSTING AND SWELLING OF THE CHEEKS. CELLULITIS OF THE FACE.) - Neurological Neurological: absent: Dizziness, Headaches - Psychiatric Psychiatric: Anxiety - Hematologic/Lymphatic Hematologic: As Per HPI. absent: Lymphadenopathy Past Patient History - Infectious Disease Hx of Infectious Diseases: None - Tetanus Immunizations Tetanus Immunization: Up to Date - Past Medical History & Family History Past Medical History?: Yes - Past Social History Smoking Status: Former Smoker - CARDIAC Hx Cardiac Disorders: Yes Hx Cardia Arrhythmia: Yes (palpitation) Hx Hypercholesterolemia: Yes Hx Hypertension: Yes - PULMONARY Hx Respiratory Disorders: Yes Hx Asthma: Yes Hx Chronic Obstructive Pulmonary Disease (COPD): Yes Hx Sleep Apnea: Yes - NEUROLOGICAL Hx Neurological Disorder: Yes Hx Alzheimer's Disease: Yes (Mild dementia and confusion noted) - HEENT Hx HEENT Problems: Yes Hx Deafness: Yes (LEFT EAR) - RENAL Hx Chronic Kidney Disease: No - ENDOCRINE/METABOLIC Hx Endocrine Disorders: Yes Hx Hypothyroidism: Yes - HEMATOLOGICAL/ONCOLOGICAL Hx Blood Disorders: No - INTEGUMENTARY Hx Dermatological Problems: Yes Hx Basil Cell: Yes (FACE, ARMS) - MUSCULOSKELETAL/RHEUMATOLOGICAL Hx Musculoskeletal Disorders: Yes Hx Arthritis: Yes (b/l knees and ankles) Hx Falls: No Hx Osteoporosis: Yes - GASTROINTESTINAL Hx Gastrointestinal Disorders: Yes Hx Diverticulitis: Yes Hx Gastritis: Yes - GENITOURINARY/GYNECOLOGICAL Hx Genitourinary Disorders: Yes Hx Incontinence: Yes - PSYCHIATRIC Hx Psychophysiologic Disorder: Yes Hx Anxiety: Yes Hx Bipolar Disorder: Yes (Patient used to take multiple medications, being seen by a psychiatrist) Hx Substance Use: No - SURGICAL HISTORY Hx Surgeries: Yes Hx Appendectomy: Yes Hx Cholecystectomy: Yes - ANESTHESIA Hx Anesthesia: Yes Hx Anesthesia Reactions: No Hx Malignant Hyperthermia: No Meds Allergies/Adverse Reactions: Allergies Allergy/AdvReac Type Severity Reaction Status Date / Time Carbapenems Allergy Intermediate Verified 02/11/17 03:28 Cephalosporins Allergy Intermediate Verified 02/11/17 03:28 aztreonam Allergy Mild Verified 02/11/17 03:28 aspirin Allergy Verified 02/11/17 03:28 ciprofloxacin [From Cipro] Allergy Verified 02/11/17 03:28 ciprofloxacin HCl Allergy Verified 02/11/17 03:28 [From Cipro] Penicillins Allergy Verified 02/11/17 03:28 - Medications Medications: Current Medications Alprazolam (Xanax) 1 mg PO Q8H [facility] Atenolol (Tenormin) 50 mg PO BID [facility] Clonidine HCl (Catapres) 0.2 mg PO BID [facility] Clopidogrel Bisulfate (Plavix) 75 mg PO DAILY [facility] Diphenhydramine HCl (Benadryl) 50 mg IM Q12 [facility] Famotidine (Pepcid) 20 mg PO BID [facility] Furosemide (Lasix) 40 mg PO DAILY [facility] Home Med (Cholecalciferol [Vitamin D 1000 Iu]) 1,000 unit PO DAILY [facility] Hydralazine HCl (Apresoline) 50 mg PO BID [facility] Levothyroxine Sodium (Synthroid) 75 mcg PO DAILY@0630 [facility] Magnesium Hydroxide (Milk Of Magnesia) 30 ml PO DAILY PRN PRN Reason: Constipation Methylprednisolone (Solu-Medrol) 60 mg IV Q12 [facility] Mirtazapine (Remeron) 45 mg PO HS [facility] Multivitamins/Minerals (Therapeutic-M Tab) 1 tab PO DAILY [facility] Rosuvastatin Calcium (Crestor) 5 mg PO HS [facility] Tamsulosin HCl (Flomax) 0.4 mg PO DAILY [facility] Physical Exam - Constitutional Appears: No Acute Distress - Head Exam Head Exam: NORMAL INSPECTION - Eye Exam Eye Exam: EOMI, PERRL Additional comments: FACIAL SWELLING BILATERALLY OF BOTH CHEEKS WITH CELLULITIS AND SUPERFICIAL MACULOPAPULAR RASH BOTH CHEEK AND NASOLABIAL FOLDS AND CHIN. - ENT Exam ENT Exam: Mucous Membranes Dry - Neck Exam Neck exam: Positive for: Normal Inspection - Respiratory Exam Respiratory Exam: Clear to Auscultation Bilateral - Cardiovascular Exam Cardiovascular Exam: REGULAR RHYTHM, +S1, +S2 - GI/Abdominal Exam GI & Abdominal Exam: Normal Bowel Sounds, Soft. absent: Organomegaly - Extremities Exam Extremities exam: Positive for: pedal pulses present. Negative for: calf tenderness, pedal edema - Neurological Exam Neurological exam: Alert, CN II-XII Intact, Oriented x3, Reflexes Normal - Psychiatric Exam Psychiatric exam: Anxious - Skin Skin Exam: Normal Color, Warm Results - Vital Signs Recent Vital Signs: Last Vital Signs Temp 97.6 F 02/11/17 10:05 Pulse 89 02/11/17 10:05 Resp 20 02/11/17 10:05 BP 186/101 H 02/11/17 10:05 Pulse Ox 96 02/11/17 10:05 - Labs Result Diagrams: 02/11/17 05:20 02/11/17 05:20 Assessment & Plan (1) Allergic reaction caused by a drug Assessment and Plan: probable allergic reaction to a cream/or moisturizer patient used. Patient not really sure what caused the rash and reaction to the face. Patient started on steroids as noted. Status: Acute (2) Cellulitis Assessment and Plan: Will start her on IV Tygacil one dose 100 mg and see if she tolerates it. Patient has multiple allergies to drugs but previously had tolerated IV Tygacil. Status: Acute (3) CHF (congestive heart failure) Status: Acute (4) Dementia Assessment and Plan: patient is quite forgetful and has staccato speech. Status: Acute (5) Hypertension Status: Acute
[2017-02-11] MEDS: DiphenhydrAMINE 50 mg/ml Inj IM SCH ×2 (15:15→22:15)
[2017-02-11] MEDS ORDERED: Tigecycline 100 MG in Dextrose 5% In Water 100 ML IVPB ONE (20:21)
[2017-02-12] MEDS: Levothyroxine 75 MCG TAB PO SCH (06:20)
[2017-02-12 08:34] LABS: MONO # 0.5 K/uL (0.0-0.8); RED CELL DISTRIBUTION WIDTH 16.2 % (11.5-14.5)
[2017-02-12 08:44] LABS: BASO % 0.2 % (0.0-2.0); HEMOGLOBIN 14.1 g/dL (11.0-16.0); LYMPH # 11.9 K/uL (1.0-4.3); LYMPH % 52.3 % (20.0-40.0); MEAN CELL VOLUME 90.4 fL (81.0-99.0); MEAN CORPUSCULAR HEMOGLOBIN 29.7 pg (27.0-31.0); MEAN CORPUSCULAR HGB CONC 32.9 g/dL (33.0-37.0); MEAN PLATELET VOLUME 9.4 fL (7.2-11.7); NEUT # 10.4 K/uL (1.8-7.0); NEUT % 45.5 % (50.0-75.0); RBC 4.75 Mil/uL (3.80-5.20)
[2017-02-12 08:46] LABS: WHITE BLOOD COUNT 22.8 K/uL (4.8-10.8)
[2017-02-12 09:28] LABS: ALBUMIN 3.5 g/dL (3.5-5.0)
[2017-02-12 09:31] LABS: ALB/GLOB RATIO 1.3 (1.0-2.1); ALT/SGPT 39 U/L (9-52); AST/SGOT 30 U/L (14-36); BLOOD UREA NITROGEN 22 mg/dL (7-17); CALCIUM 8.6 mg/dl (8.6-10.4); GFR AFRICAN-AMERICAN > 60; GFR NON-AFRICAN AMERICAN > 60
[2017-02-12] MEDS ORDERED: Ergocalciferol 50,000 Intl Units Cap PO SCH (10:00)
[2017-02-12] MEDS: Multivitamin With Minerals Tab PO SCH (10:26)
[2017-02-12] MEDS: DiphenhydrAMINE 50 mg/ml Inj IM SCH ×2 (11:01→21:12)
--- NOTE | 2017-02-12 14:22 | CP.PCM.PN ---
Subjective - Date & Time of Evaluation Date of Evaluation: 02/12/17 Time of Evaluation: 14:17 - Subjective Subjective: CHIEF COMPLAINTS TODAY : PAIN AND SWELLING OF FACE ROS. HEENT : FACIAL PAIN Resp : No cough, wheezing ,pleuritic CP ,or hemoptysis Cardio : No anginal CP, PND, orthopnea, palpitation GI : No abd.pain, n/v ,diarrhea or GI bleeding . 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 Musculoskel : No joint swelling , Derm : No rash Psych : Normal affect. Ext : No swelling ,calf pain PE. Pt. is alert awake in no distress. V.S As noted in the chart Head ,ear nose,throat and eyes : Normal. SWELLING AND CRUSTING ON THE FACIAL MUSCLES WITH ERYTHEMA Neck : Supple with normal carotids. Lungs: Clear air entry. Heart : S1 & S2 normal with S4. No murmur. Abd : Soft non tender with normal bowel sounds. Neuro : Moves all ext. with no localized deficit. Ext : No edema with intact pulses.Non tender calves Derm : No rashes or decubitus ulcer. LABS/RADIOLOGY: GRM NEG RODS IN URINE WBC 22K ASSESSMENT/PLAN : IN AB STEROIDS/BENADRYL Objective - Vital Signs/Intake and Output Vital Signs (last 24 hours): Temp Pulse Resp BP Pulse Ox 98.4 F 76 17 168/95 H 96 02/12/17 08:18 02/12/17 08:18 02/12/17 08:18 02/12/17 10:24 02/12/17 08:18 - Medications Medications: Current Medications Alprazolam (Xanax) 1 mg PO Q8H [facility] Last Admin: 02/12/17 06:20 Dose: 1 mg Atenolol (Tenormin) 50 mg PO BID [facility] Last Admin: 02/12/17 10:24 Dose: 50 mg Clonidine HCl (Catapres) 0.2 mg PO BID [facility] Last Admin: 02/12/17 10:24 Dose: 0.2 mg Clopidogrel Bisulfate (Plavix) 75 mg PO DAILY [facility] Last Admin: 02/12/17 10:25 Dose: 75 mg Diphenhydramine HCl (Benadryl) 50 mg IM Q12 [facility] Last Admin: 02/12/17 11:01 Dose: 50 mg Ergocalciferol (Drisdol 50,000 Intl Units Cap) 1 cap PO QWK [facility] Last Admin: 02/12/17 10:57 Dose: 1 cap Famotidine (Pepcid) 20 mg PO BID [facility] Last Admin: 02/12/17 10:23 Dose: 20 mg Furosemide (Lasix) 40 mg PO DAILY [facility] Last Admin: 02/12/17 10:24 Dose: 40 mg Heparin Sodium (Porcine) (Heparin) 5,000 units SC Q8 [facility] Last Admin: 02/12/17 13:54 Dose: 5,000 units Hydralazine HCl (Apresoline) 50 mg PO BID [facility] Last Admin: 02/12/17 10:24 Dose: 50 mg Levothyroxine Sodium (Synthroid) 75 mcg PO DAILY@0630 [facility] Last Admin: 02/12/17 06:20 Dose: 75 mcg Magnesium Hydroxide (Milk Of Magnesia) 30 ml PO DAILY PRN PRN Reason: Constipation Methylprednisolone (Solu-Medrol) 60 mg IV Q12 [facility] Last Admin: 02/12/17 10:28 Dose: 60 mg Mirtazapine (Remeron) 45 mg PO HS [facility] Last Admin: 02/11/17 22:05 Dose: 45 mg Multivitamins/Minerals (Therapeutic-M Tab) 1 tab PO DAILY [facility] Last Admin: 02/12/17 10:26 Dose: 1 tab Rosuvastatin Calcium (Crestor) 5 mg PO HS [facility] Last Admin: 02/11/17 22:05 Dose: 5 mg Tamsulosin HCl (Flomax) 0.4 mg PO DAILY [facility] Last Admin: 02/12/17 10:25 Dose: 0.4 mg - Labs Labs: 02/12/17 08:25 02/12/17 08:25
--- NOTE | 2017-02-12 17:33 | CP.PCM.PN ---
Subjective - Date & Time of Evaluation Date of Evaluation: 02/12/17 Time of Evaluation: 17:32 - Subjective Subjective: CHIEF COMPLAINTS TODAY : afebrile Still has swelling of the face. Rash and cellulitis much improved ROS. HEENT : FACIAL itching/swelling Resp : No cough, wheezing ,pleuritic CP ,or hemoptysis Cardio : No anginal CP, PND, orthopnea, palpitation GI : No abd.pain, n/v ,diarrhea or GI bleeding . 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 Musculoskel : No joint swelling , Derm : No rash Psych : Normal affect. Ext : No swelling ,calf pain PE. Pt. is alert awake in no distress. V.S As noted in the chart Head ,ear nose,throat and eyes : Normal. SWELLING AND CRUSTING OFF RASH ON FACE AND CHIN wITH IMPROVING ERYTHEMA AND CELLULITIS. Neck : Supple with normal carotids. Lungs: Clear air entry. Heart : S1 & S2 normal with S4. No murmur. Abd : Soft non tender with normal bowel sounds. Neuro : Moves all ext. with no localized deficit. Ext : No edema with intact pulses.Non tender calves Derm : No rashes or decubitus ulcer. LABS/RADIOLOGY: wbc 22.8 bLOOD CULTURES NEGATIVE GROWTH TO DATE. URINE CULTURE GRAM-NEGATIVE RODS. LFTS OKAY Objective - Vital Signs/Intake and Output Vital Signs (last 24 hours): Temp Pulse Resp BP Pulse Ox 98 F 66 20 122/78 96 02/12/17 15:19 02/12/17 15:19 02/12/17 15:19 02/12/17 15:19 02/12/17 15:19 - Medications Medications: Current Medications Alprazolam (Xanax) 1 mg PO Q8H [facility] Last Admin: 02/12/17 14:00 Dose: Not Given Atenolol (Tenormin) 50 mg PO BID [facility] Last Admin: 02/12/17 10:24 Dose: 50 mg Clonidine HCl (Catapres) 0.2 mg PO BID [facility] Last Admin: 02/12/17 10:24 Dose: 0.2 mg Clopidogrel Bisulfate (Plavix) 75 mg PO DAILY [facility] Last Admin: 02/12/17 10:25 Dose: 75 mg Diphenhydramine HCl (Benadryl) 50 mg IM Q12 [facility] Last Admin: 02/12/17 11:01 Dose: 50 mg Ergocalciferol (Drisdol 50,000 Intl Units Cap) 1 cap PO QWK [facility] Last Admin: 02/12/17 10:57 Dose: 1 cap Famotidine (Pepcid) 20 mg PO BID [facility] Last Admin: 02/12/17 10:23 Dose: 20 mg Furosemide (Lasix) 40 mg PO DAILY [facility] Last Admin: 02/12/17 10:24 Dose: 40 mg Heparin Sodium (Porcine) (Heparin) 5,000 units SC Q8 [facility] Last Admin: 02/12/17 13:54 Dose: 5,000 units Hydralazine HCl (Apresoline) 50 mg PO BID [facility] Last Admin: 02/12/17 10:24 Dose: 50 mg Levothyroxine Sodium (Synthroid) 75 mcg PO DAILY@0630 [facility] Last Admin: 02/12/17 06:20 Dose: 75 mcg Magnesium Hydroxide (Milk Of Magnesia) 30 ml PO DAILY PRN PRN Reason: Constipation Methylprednisolone (Solu-Medrol) 60 mg IV Q12 [facility] Last Admin: 02/12/17 10:28 Dose: 60 mg Mirtazapine (Remeron) 45 mg PO HS [facility] Last Admin: 02/11/17 22:05 Dose: 45 mg Multivitamins/Minerals (Therapeutic-M Tab) 1 tab PO DAILY [facility] Last Admin: 02/12/17 10:26 Dose: 1 tab Rosuvastatin Calcium (Crestor) 5 mg PO HS [facility] Last Admin: 02/11/17 22:05 Dose: 5 mg Tamsulosin HCl (Flomax) 0.4 mg PO DAILY [facility] Last Admin: 02/12/17 10:25 Dose: 0.4 mg - Labs Labs: 02/12/17 08:25 02/12/17 08:25 Assessment and Plan (1) Allergic reaction caused by a drug Assessment & Plan: PATIENT ON sOLU-mEDROL AND bENADRYL AND IMPROVING Status: Acute (2) Cellulitis Assessment & Plan: PATIENT CELLULITIS AND RASH DRYING UP AND IMPROVING. pATIENT TOLERATED iv tYGACIL LOADING DOSE. cONTINUE iv tYGACIL 50 MG iv PIGGYBACK EVERY 12 HOURLY 4 DAYS. Status: Acute (3) CHF (congestive heart failure) Status: Acute (4) Dementia Status: Acute (5) Hypertension Status: Acute (6) UTI (urinary tract infection) Assessment & Plan: follow-up urine cultures Patient presently on IV Tygacil. Day 2. Status: Acute
[2017-02-12] MEDS: Tigecycline 50 MG in Dextrose 5% In Water 100 ML IVPB SCH (19:38)
[2017-02-13] MEDS: Levothyroxine 75 MCG TAB PO SCH (06:15)
[2017-02-13] MEDS: Tigecycline 50 MG in Dextrose 5% In Water 100 ML IVPB SCH ×2 (08:26→19:32)
[2017-02-13] MEDS: Multivitamin With Minerals Tab PO SCH (09:38)
[2017-02-13] MEDS: DiphenhydrAMINE 50 mg/ml Inj IM SCH ×2 (09:39→21:33)
--- NOTE | 2017-02-13 13:18 | CP.PCM.PN ---
Subjective - Date & Time of Evaluation Date of Evaluation: 02/13/17 Time of Evaluation: 13:18 - Subjective Subjective: CHIEF COMPLAINTS TODAY : PAIN AND SWELLING OF FACE ROS. HEENT : FACIAL PAIN Resp : No cough, wheezing ,pleuritic CP ,or hemoptysis Cardio : No anginal CP, PND, orthopnea, palpitation GI : No abd.pain, n/v ,diarrhea or GI bleeding . 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 Musculoskel : No joint swelling , Derm : No rash Psych : Normal affect. Ext : No swelling ,calf pain PE. Pt. is alert awake in no distress. V.S As noted in the chart Head ,ear nose,throat and eyes : Normal. SWELLING AND CRUSTING ON THE FACIAL MUSCLES WITH ERYTHEMA Neck : Supple with normal carotids. Lungs: Clear air entry. Heart : S1 & S2 normal with S4. No murmur. Abd : Soft non tender with normal bowel sounds. Neuro : Moves all ext. with no localized deficit. Ext : No edema with intact pulses.Non tender calves Derm : No rashes or decubitus ulcer. LABS/RADIOLOGY: URINE KLEB PNEU. ASSESSMENT/PLAN : IN AB STEROIDS/BENADRYL Objective - Vital Signs/Intake and Output Vital Signs (last 24 hours): Temp Pulse Resp BP Pulse Ox 97.5 F L 95 H 18 161/87 H 99 02/13/17 08:05 02/13/17 08:05 02/13/17 08:05 02/13/17 09:38 02/13/17 08:05 - Medications Medications: Current Medications Alprazolam (Xanax) 1 mg PO Q8H [facility] Last Admin: 02/13/17 13:14 Dose: 1 mg Atenolol (Tenormin) 50 mg PO BID [facility] Last Admin: 02/13/17 09:38 Dose: 50 mg Clonidine HCl (Catapres) 0.2 mg PO BID [facility] Last Admin: 02/13/17 09:39 Dose: 0.2 mg Clopidogrel Bisulfate (Plavix) 75 mg PO DAILY [facility] Last Admin: 02/13/17 09:38 Dose: 75 mg Diphenhydramine HCl (Benadryl) 25 mg IM Q12H [facility] Last Admin: 02/13/17 09:39 Dose: 25 mg Ergocalciferol (Drisdol 50,000 Intl Units Cap) 1 cap PO QWK [facility] Last Admin: 02/12/17 10:57 Dose: 1 cap Famotidine (Pepcid) 20 mg PO BID [facility] Last Admin: 02/13/17 09:38 Dose: 20 mg Furosemide (Lasix) 40 mg PO DAILY [facility] Last Admin: 02/13/17 09:38 Dose: 40 mg Heparin Sodium (Porcine) (Heparin) 5,000 units SC Q8 [facility] Last Admin: 02/13/17 13:14 Dose: 5,000 units Hydralazine HCl (Apresoline) 50 mg PO BID [facility] Last Admin: 02/13/17 09:38 Dose: 50 mg Tigecycline 50 mg/ Dextrose 100 mls @ 100 mls/hr IVPB Q12H [facility] Stop: 02/16/17 20:01 Last Admin: 02/13/17 08:26 Dose: 100 mls/hr Levothyroxine Sodium (Synthroid) 75 mcg PO DAILY@0630 [facility] Last Admin: 02/13/17 06:15 Dose: 75 mcg Magnesium Hydroxide (Milk Of Magnesia) 30 ml PO DAILY PRN PRN Reason: Constipation Methylprednisolone (Solu-Medrol) 60 mg IV Q12 [facility] Last Admin: 02/13/17 09:38 Dose: 60 mg Mirtazapine (Remeron) 45 mg PO HS [facility] Last Admin: 02/12/17 21:18 Dose: 45 mg Multivitamins/Minerals (Therapeutic-M Tab) 1 tab PO DAILY [facility] Last Admin: 02/13/17 09:38 Dose: 1 tab Rosuvastatin Calcium (Crestor) 5 mg PO HS [facility] Last Admin: 02/12/17 21:12 Dose: 5 mg Tamsulosin HCl (Flomax) 0.4 mg PO DAILY [facility] Last Admin: 02/13/17 09:38 Dose: 0.4 mg - Labs Labs: 02/12/17 08:25 02/12/17 08:25
--- NOTE | 2017-02-13 22:59 | CP.PCM.PN ---
Subjective - Date & Time of Evaluation Date of Evaluation: 02/13/17 Time of Evaluation: 22:59 - Subjective Subjective: CHIEF COMPLAINTS TODAY : afebrile swelling of the face IIMPROVING SLOWLY Rash and cellulitis much improved ROS. HEENT : FACIAL itching/swelling decreasing Resp : No cough, wheezing ,pleuritic CP ,or hemoptysis Cardio : No anginal CP, PND, orthopnea, palpitation GI : No abd.pain, n/v ,diarrhea or GI bleeding . 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 Musculoskel : No joint swelling , Derm : No rash Psych : Normal affect. Ext : No swelling ,calf pain PE. Pt. is alert awake in no distress. V.S As noted in the chart Head ,ear nose,throat and eyes : Normal. SWELLING AND CRUSTING OFF RASH ON FACE AND CHIN wITH IMPROVING ERYTHEMA AND CELLULITIS. Neck : Supple with normal carotids. Lungs: Clear air entry. Heart : S1 & S2 normal with S4. No murmur. Abd : Soft non tender with normal bowel sounds. Neuro : Moves all ext. with no localized deficit. Ext : No edema with intact pulses.Non tender calves Derm : No rashes or decubitus ulcer. LABS/RADIOLOGY: wbc 22.8 bLOOD CULTURES NEGATIVE GROWTH TO DATE. URINE CULTURE +ve kLEBSIELLA PNEUMONIAE S- tYGACIL. LFTS OKAY Objective - Vital Signs/Intake and Output Vital Signs (last 24 hours): Temp Pulse Resp BP Pulse Ox 98 F 72 20 138/84 98 02/13/17 15:34 02/13/17 15:34 02/13/17 15:34 02/13/17 15:34 02/13/17 15:34 Intake and Output: 02/13/17 02/14/17 18:59 06:59 Intake Total 500 Balance 500 - Medications Medications: Current Medications Alprazolam (Xanax) 1 mg PO Q8H [facility] Last Admin: 02/13/17 21:32 Dose: 1 mg Atenolol (Tenormin) 50 mg PO BID [facility] Last Admin: 02/13/17 18:14 Dose: 50 mg Clonidine HCl (Catapres) 0.2 mg PO BID [facility] Last Admin: 02/13/17 18:14 Dose: 0.2 mg Clopidogrel Bisulfate (Plavix) 75 mg PO DAILY [facility] Last Admin: 02/13/17 09:38 Dose: 75 mg Diphenhydramine HCl (Benadryl) 25 mg IM Q12H [facility] Last Admin: 02/13/17 21:33 Dose: 25 mg Ergocalciferol (Drisdol 50,000 Intl Units Cap) 1 cap PO QWK [facility] Last Admin: 02/12/17 10:57 Dose: 1 cap Famotidine (Pepcid) 20 mg PO BID [facility] Last Admin: 02/13/17 18:14 Dose: 20 mg Furosemide (Lasix) 40 mg PO DAILY [facility] Last Admin: 02/13/17 09:38 Dose: 40 mg Heparin Sodium (Porcine) (Heparin) 5,000 units SC Q8 [facility] Last Admin: 02/13/17 21:33 Dose: 5,000 units Hydralazine HCl (Apresoline) 50 mg PO BID [facility] Last Admin: 02/13/17 18:14 Dose: 50 mg Tigecycline 50 mg/ Dextrose 100 mls @ 100 mls/hr IVPB Q12H [facility] Stop: 02/16/17 20:01 Last Admin: 02/13/17 19:32 Dose: 100 mls/hr Levothyroxine Sodium (Synthroid) 75 mcg PO DAILY@0630 [facility] Last Admin: 02/13/17 06:15 Dose: 75 mcg Magnesium Hydroxide (Milk Of Magnesia) 30 ml PO DAILY PRN PRN Reason: Constipation Methylprednisolone (Solu-Medrol) 60 mg IV Q12 [facility] Last Admin: 02/13/17 21:32 Dose: 60 mg Mirtazapine (Remeron) 45 mg PO HS [facility] Last Admin: 02/13/17 21:32 Dose: 45 mg Multivitamins/Minerals (Therapeutic-M Tab) 1 tab PO DAILY [facility] Last Admin: 02/13/17 09:38 Dose: 1 tab Rosuvastatin Calcium (Crestor) 5 mg PO HS [facility] Last Admin: 02/13/17 21:32 Dose: 5 mg Tamsulosin HCl (Flomax) 0.4 mg PO DAILY [facility] Last Admin: 02/13/17 09:38 Dose: 0.4 mg Assessment and Plan (1) Allergic reaction caused by a drug Assessment & Plan: PATIENT IMPROVING ON iv sOLU-mEDROL AND iv tYGACIL. Status: Acute (2) Cellulitis Assessment & Plan: MUCH IMPROVED WITH DECREASED SWELLING OF THE FACE. RASH WITH CRUSTING LESIONS. Status: Acute (3) CHF (congestive heart failure) Status: Acute (4) Dementia Status: Acute (5) Hypertension Status: Acute (6) UTI (urinary tract infection) Assessment & Plan: URINE CULTURE +VE kLEBSIELLA PNEUMONIAE.. pATIENT ON iv tYGACIL-DAY 3 Status: Acute
[2017-02-14] MEDS: Levothyroxine 75 MCG TAB PO SCH (05:51)
[2017-02-14] MEDS: Tigecycline 50 MG in Dextrose 5% In Water 100 ML IVPB SCH (08:38)
[2017-02-14] MEDS: DiphenhydrAMINE 50 mg/ml Inj IM SCH ×2 (10:00→21:30)
[2017-02-14] MEDS: Multivitamin With Minerals Tab PO SCH (10:00)
[2017-02-14 11:11] LABS: BASO % 0.1 % (0.0-2.0); HEMOGLOBIN 12.7 g/dL (11.0-16.0); LYMPH # 14.4 K/uL (1.0-4.3); LYMPH % 64.3 % (20.0-40.0); MEAN CELL VOLUME 91.2 fL (81.0-99.0); MEAN CORPUSCULAR HEMOGLOBIN 28.9 pg (27.0-31.0); MEAN CORPUSCULAR HGB CONC 31.7 g/dL (33.0-37.0); MEAN PLATELET VOLUME 9.6 fL (7.2-11.7); MONO # 0.5 K/uL (0.0-0.8); MONO % 2.1 % (0.0-10.0); NEUT # 7.5 K/uL (1.8-7.0); NEUT % 33.5 % (50.0-75.0); NRBC % 0.1 % (0.0-2.0); RBC 4.38 Mil/uL (3.80-5.20); RED CELL DISTRIBUTION WIDTH 16.6 % (11.5-14.5); WHITE BLOOD COUNT 22.3 K/uL (4.8-10.8)
[2017-02-14 11:17] LABS: ALBUMIN 2.5 g/dL (3.5-5.0)
[2017-02-14 11:20] LABS: GFR AFRICAN-AMERICAN > 60; GFR NON-AFRICAN AMERICAN > 60
[2017-02-14 11:21] LABS: ALB/GLOB RATIO 1.1 (1.0-2.1); ALT/SGPT 36 U/L (9-52); AST/SGOT 19 U/L (14-36); BLOOD UREA NITROGEN 25 mg/dL (7-17); CALCIUM 6.2 mg/dl (8.6-10.4)
--- NOTE | 2017-02-14 13:37 | CP.PCM.PN ---
Subjective - Date & Time of Evaluation Date of Evaluation: 02/14/17 Time of Evaluation: 13:37 - Subjective Subjective: CHIEF COMPLAINTS TODAY : PAIN AND SWELLING OF FACE ROS. HEENT : FACIAL PAIN Resp : No cough, wheezing ,pleuritic CP ,or hemoptysis Cardio : No anginal CP, PND, orthopnea, palpitation GI : No abd.pain, n/v ,diarrhea or GI bleeding . 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 Musculoskel : No joint swelling , Derm : No rash Psych : Normal affect. Ext : No swelling ,calf pain PE. Pt. is alert awake in no distress. V.S As noted in the chart Head ,ear nose,throat and eyes : Normal. SWELLING AND CRUSTING ON THE FACIAL MUSCLES WITH ERYTHEMA Neck : Supple with normal carotids. Lungs: Clear air entry. Heart : S1 & S2 normal with S4. No murmur. Abd : Soft non tender with normal bowel sounds. Neuro : Moves all ext. with no localized deficit. Ext : No edema with intact pulses.Non tender calves Derm : No rashes or decubitus ulcer. LABS/RADIOLOGY: URINE KLEB PNEU. ASSESSMENT/PLAN : IN AB REDUCE IV STEROIDS Objective - Vital Signs/Intake and Output Vital Signs (last 24 hours): Temp Pulse Resp BP Pulse Ox 98.1 F 58 L 18 171/89 H 96 02/14/17 07:00 02/14/17 07:00 02/14/17 07:00 02/14/17 10:01 02/14/17 07:00 Intake and Output: 02/14/17 02/14/17 11:59 23:59 Intake Total 240 Balance 240 - Medications Medications: Current Medications Alprazolam (Xanax) 1 mg PO Q8H [facility] Last Admin: 02/14/17 05:51 Dose: 1 mg Atenolol (Tenormin) 50 mg PO BID [facility] Last Admin: 02/14/17 10:01 Dose: 50 mg Clonidine HCl (Catapres) 0.2 mg PO BID [facility] Last Admin: 02/14/17 10:01 Dose: 0.2 mg Clopidogrel Bisulfate (Plavix) 75 mg PO DAILY [facility] Last Admin: 02/14/17 10:00 Dose: 75 mg Diphenhydramine HCl (Benadryl) 25 mg IM Q12H [facility] Last Admin: 02/14/17 10:00 Dose: 25 mg Ergocalciferol (Drisdol 50,000 Intl Units Cap) 1 cap PO QWK [facility] Last Admin: 02/12/17 10:57 Dose: 1 cap Famotidine (Pepcid) 20 mg PO BID [facility] Last Admin: 02/14/17 10:00 Dose: 20 mg Furosemide (Lasix) 40 mg PO DAILY [facility] Last Admin: 02/14/17 10:01 Dose: 40 mg Heparin Sodium (Porcine) (Heparin) 5,000 units SC Q8 [facility] Last Admin: 02/14/17 05:51 Dose: 5,000 units Hydralazine HCl (Apresoline) 50 mg PO BID [facility] Last Admin: 02/14/17 10:00 Dose: 50 mg Tigecycline 50 mg/ Sodium (Chloride) 100 mls @ 100 mls/hr IVPB Q12H [facility] Stop: 02/16/17 20:01 Levothyroxine Sodium (Synthroid) 75 mcg PO DAILY@0630 [facility] Last Admin: 02/14/17 05:51 Dose: 75 mcg Magnesium Hydroxide (Milk Of Magnesia) 30 ml PO DAILY PRN PRN Reason: Constipation Methylprednisolone (Solu-Medrol) 20 mg IV Q12 [facility] Mirtazapine (Remeron) 45 mg PO HS [facility] Last Admin: 02/13/17 21:32 Dose: 45 mg Multivitamins/Minerals (Therapeutic-M Tab) 1 tab PO DAILY [facility] Last Admin: 02/14/17 10:00 Dose: 1 tab Rosuvastatin Calcium (Crestor) 5 mg PO HS [facility] Last Admin: 02/13/17 21:32 Dose: 5 mg Tamsulosin HCl (Flomax) 0.4 mg PO DAILY [facility] Last Admin: 02/14/17 10:01 Dose: 0.4 mg - Labs Labs: 02/14/17 11:02 02/14/17 11:02
[2017-02-14] MEDS: Potassium Chloride 20 mEq ER Tab PO SCH (17:41)
[2017-02-14] MEDS: MethylPREDNISolone 40 mg Vial IV SCH (21:29)
--- NOTE | 2017-02-14 22:14 | CP.PCM.PN ---
Subjective - Date & Time of Evaluation Date of Evaluation: 02/14/17 Time of Evaluation: 22:13 - Subjective Subjective: CHIEF COMPLAINTS TODAY : afebrile swelling of the face IIMPROVING SLOWLY Rash and cellulitis much improved ROS. HEENT : FACIAL itching/swelling decreasing Resp : No cough, wheezing ,pleuritic CP ,or hemoptysis Cardio : No anginal CP, PND, orthopnea, palpitation GI : No abd.pain, n/v ,diarrhea or GI bleeding . 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 Musculoskel : No joint swelling , Derm : No rash Psych : Normal affect. Ext : No swelling ,calf pain PE. Pt. is alert awake in no distress. V.S As noted in the chart Head ,ear nose,throat and eyes : Normal. SWELLING AND CRUSTING OFF RASH ON FACE AND CHIN wITH IMPROVING ERYTHEMA AND CELLULITIS. Neck : Supple with normal carotids. Lungs: Clear air entry. Heart : S1 & S2 normal with S4. No murmur. Abd : Soft non tender with normal bowel sounds. Neuro : Moves all ext. with no localized deficit. Ext : No edema with intact pulses.Non tender calves Derm : No rashes or decubitus ulcer. LABS/RADIOLOGY: wbc 22.8--> 22.3 K 2.9 bLOOD CULTURES NEGATIVE GROWTH TO DATE. URINE CULTURE +ve KLEBSIELLA PNEUMONIAE S- tYGACIL. LFTS OKAY Objective - Vital Signs/Intake and Output Vital Signs (last 24 hours): Temp Pulse Resp BP Pulse Ox 97.9 F 59 L 20 169/92 H 96 02/14/17 15:56 02/14/17 15:56 02/14/17 15:56 02/14/17 19:36 02/14/17 15:56 Intake and Output: 02/14/17 02/15/17 18:59 06:59 Intake Total 500 Balance 500 - Medications Medications: Current Medications Alprazolam (Xanax) 1 mg PO Q8H [facility] Last Admin: 02/14/17 21:30 Dose: 1 mg Atenolol (Tenormin) 50 mg PO BID [facility] Last Admin: 02/14/17 17:41 Dose: 50 mg Clonidine HCl (Catapres) 0.2 mg PO BID [facility] Last Admin: 02/14/17 19:35 Dose: 0.2 mg Clopidogrel Bisulfate (Plavix) 75 mg PO DAILY [facility] Last Admin: 02/14/17 10:00 Dose: 75 mg Diphenhydramine HCl (Benadryl) 25 mg IM Q12H [facility] Last Admin: 02/14/17 21:30 Dose: 25 mg Ergocalciferol (Drisdol 50,000 Intl Units Cap) 1 cap PO QWK [facility] Last Admin: 02/12/17 10:57 Dose: 1 cap Famotidine (Pepcid) 20 mg PO BID [facility] Last Admin: 02/14/17 17:41 Dose: 20 mg Furosemide (Lasix) 40 mg PO DAILY [facility] Last Admin: 02/14/17 10:01 Dose: 40 mg Heparin Sodium (Porcine) (Heparin) 5,000 units SC Q8 [facility] Last Admin: 02/14/17 21:29 Dose: 5,000 units Hydralazine HCl (Apresoline) 50 mg PO BID [facility] Last Admin: 02/14/17 17:41 Dose: 50 mg Tigecycline 50 mg/ Sodium (Chloride) 100 mls @ 100 mls/hr IVPB Q12H [facility] Stop: 02/16/17 20:01 Last Admin: 02/14/17 21:30 Dose: 100 mls/hr Levothyroxine Sodium (Synthroid) 75 mcg PO DAILY@0630 [facility] Last Admin: 02/14/17 05:51 Dose: 75 mcg Magnesium Hydroxide (Milk Of Magnesia) 30 ml PO DAILY PRN PRN Reason: Constipation Methylprednisolone (Solu-Medrol) 20 mg IV Q12 [facility] Last Admin: 02/14/17 21:29 Dose: 20 mg Mirtazapine (Remeron) 45 mg PO HS [facility] Last Admin: 02/14/17 22:10 Dose: 45 mg Multivitamins/Minerals (Therapeutic-M Tab) 1 tab PO DAILY [facility] Last Admin: 02/14/17 10:00 Dose: 1 tab Potassium Chloride (K-Dur 20 Meq Er Tab) 20 meq PO BID [facility] Last Admin: 02/14/17 17:41 Dose: 20 meq Rosuvastatin Calcium (Crestor) 5 mg PO HS [facility] Last Admin: 02/14/17 21:30 Dose: 5 mg Tamsulosin HCl (Flomax) 0.4 mg PO DAILY [facility] Last Admin: 02/14/17 10:01 Dose: 0.4 mg - Labs Labs: 02/14/17 11:02 02/14/17 11:02 Assessment and Plan (1) Allergic reaction caused by a drug Assessment & Plan: PATIENT IMPROVING ON iv sOLU-mEDROL AND iv tYGACI Status: Acute (2) Cellulitis Assessment & Plan: IMPROVING ON IV TYGACIL. Status: Acute (3) CHF (congestive heart failure) Status: Acute (4) Dementia Status: Acute (5) Hypertension Status: Acute (6) UTI (urinary tract infection) Assessment & Plan: REPEAT UA/URINE CULTURE -CLEAN CATCH ON IV TYGACILL 50MG IV Q 12HRLY. Status: Acute
[2017-02-15] MEDS: Levothyroxine 75 MCG TAB PO SCH (05:50)
[2017-02-15 06:49] LABS: URINE BILIRUBIN NEGATIVE (NEGATIVE); URINE BLOOD NEGATIVE (NEGATIVE); URINE CLARITY Clear (Clear); URINE COLOR Yellow (YELLOW); URINE GLUCOSE (UA) NORMAL (Normal); URINE LEUKOCYTE ESTERASE NEG Leu/uL (Negative); URINE NITRATE NEGATIVE (NEGATIVE); URINE PROTEIN NEGATIVE (NEGATIVE); URINE UROBILINOGEN NORMAL mg/dL (0.2-1.0)
[2017-02-15] MEDS: Multivitamin With Minerals Tab PO SCH (10:52)
[2017-02-15] MEDS: Potassium Chloride 20 mEq ER Tab PO SCH ×2 (10:52→17:23)
[2017-02-15] MEDS: MethylPREDNISolone 40 mg Vial IV SCH (10:53)
[2017-02-15] MEDS: DiphenhydrAMINE 50 mg/ml Inj IM SCH ×2 (10:54→21:35)
[2017-02-15 14:10] LABS: ALBUMIN 3.3 g/dL (3.5-5.0)
[2017-02-15 14:13] LABS: ALB/GLOB RATIO 1.2 (1.0-2.1); AST/SGOT 34 U/L (14-36); BLOOD UREA NITROGEN 30 mg/dL (7-17); GFR AFRICAN-AMERICAN > 60; GFR NON-AFRICAN AMERICAN > 60
[2017-02-15 14:14] LABS: ALT/SGPT 37 U/L (9-52); CALCIUM 7.9 mg/dl (8.6-10.4)
--- NOTE | 2017-02-15 14:41 | CP.PCM.PN ---
Subjective - Date & Time of Evaluation Date of Evaluation: 02/15/17 Time of Evaluation: 14:40 - Subjective Subjective: CHIEF COMPLAINTS TODAY : PAIN AND SWELLING OF FACE HAS SUBSIDED ROS. HEENT : FACIAL PAIN Resp : No cough, wheezing ,pleuritic CP ,or hemoptysis Cardio : No anginal CP, PND, orthopnea, palpitation GI : No abd.pain, n/v ,diarrhea or GI bleeding . 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 Musculoskel : No joint swelling , Derm : No rash Psych : Normal affect. Ext : No swelling ,calf pain PE. Pt. is alert awake in no distress. V.S As noted in the chart Head ,ear nose,throat and eyes : Normal. SWELLING AND CRUSTING ON THE FACIAL MUSCLES WITH MINIMAL ERYTHEMA Neck : Supple with normal carotids. Lungs: Clear air entry. Heart : S1 & S2 normal with S4. No murmur. Abd : Soft non tender with normal bowel sounds. Neuro : Moves all ext. with no localized deficit. Ext : No edema with intact pulses.Non tender calves Derm : No rashes or decubitus ulcer. LABS/RADIOLOGY: URINE KLEB PNEU. ASSESSMENT/PLAN : WEAN OFF STEROIDS D/C IN AM Objective - Vital Signs/Intake and Output Vital Signs (last 24 hours): Temp Pulse Resp BP Pulse Ox 98 F 72 20 162/82 H 96 02/14/17 23:40 02/15/17 07:48 02/14/17 23:40 02/15/17 10:53 02/14/17 23:40 Intake and Output: 02/15/17 02/15/17 11:59 23:59 Intake Total 540 340 Balance 540 340 - Medications Medications: Current Medications Alprazolam (Xanax) 1 mg PO Q8H [facility] Last Admin: 02/15/17 13:21 Dose: 1 mg Atenolol (Tenormin) 50 mg PO BID [facility] Last Admin: 02/15/17 10:53 Dose: 50 mg Clonidine HCl (Catapres) 0.2 mg PO BID [facility] Last Admin: 02/15/17 10:53 Dose: 0.2 mg Clopidogrel Bisulfate (Plavix) 75 mg PO DAILY [facility] Last Admin: 02/15/17 10:52 Dose: 75 mg Diphenhydramine HCl (Benadryl) 25 mg IM Q12H [facility] Last Admin: 02/15/17 10:54 Dose: Not Given Ergocalciferol (Drisdol 50,000 Intl Units Cap) 1 cap PO QWK [facility] Last Admin: 02/12/17 10:57 Dose: 1 cap Famotidine (Pepcid) 20 mg PO BID [facility] Last Admin: 02/15/17 10:53 Dose: 20 mg Furosemide (Lasix) 40 mg PO DAILY [facility] Last Admin: 02/15/17 10:53 Dose: 40 mg Hydralazine HCl (Apresoline) 50 mg PO BID [facility] Last Admin: 02/15/17 10:52 Dose: 50 mg Tigecycline 50 mg/ Sodium (Chloride) 100 mls @ 100 mls/hr IVPB Q12H [facility] Stop: 02/16/17 20:01 Last Admin: 02/15/17 08:00 Dose: 100 mls/hr Levothyroxine Sodium (Synthroid) 75 mcg PO DAILY@0630 [facility] Last Admin: 02/15/17 05:50 Dose: 75 mcg Magnesium Hydroxide (Milk Of Magnesia) 30 ml PO DAILY PRN PRN Reason: Constipation Mirtazapine (Remeron) 45 mg PO HS [facility] Last Admin: 02/14/17 22:10 Dose: 45 mg Multivitamins/Minerals (Therapeutic-M Tab) 1 tab PO DAILY [facility] Last Admin: 02/15/17 10:52 Dose: 1 tab Potassium Chloride (K-Dur 20 Meq Er Tab) 20 meq PO BID [facility] Last Admin: 02/15/17 10:52 Dose: 20 meq Prednisone (Prednisone Tab) 20 mg PO DAILY [facility] Rosuvastatin Calcium (Crestor) 5 mg PO HS [facility] Last Admin: 02/14/17 21:30 Dose: 5 mg Tamsulosin HCl (Flomax) 0.4 mg PO DAILY [facility] Last Admin: 02/15/17 10:53 Dose: 0.4 mg - Labs Labs: 02/14/17 11:02 02/15/17 13:54
--- NOTE | 2017-02-15 22:01 | CP.PCM.PN ---
Subjective - Date & Time of Evaluation Date of Evaluation: 02/15/17 Time of Evaluation: 22:01 - Subjective Subjective: CHIEF COMPLAINTS TODAY : afebrile swelling of the face much better Rash and cellulitis decreasing some crusting of rash on face. ROS. HEENT : FACIAL itching/swelling decreasing Resp : No cough, wheezing ,pleuritic CP ,or hemoptysis Cardio : No anginal CP, PND, orthopnea, palpitation GI : No abd.pain, n/v ,diarrhea or GI bleeding . 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 Musculoskel : No joint swelling , Derm : No rash Psych : Normal affect. Ext : No swelling ,calf pain PE. Pt. is alert awake in no distress. V.S As noted in the chart Head ,ear nose,throat and eyes : Normal. SWELLING AND CRUSTING OF RASH ON FACE AND CHIN wITH IMPROVING ERYTHEMA AND CELLULITIS. Neck : Supple with normal carotids. Lungs: Clear air entry. Heart : S1 & S2 normal with S4. No murmur. Abd : Soft non tender with normal bowel sounds. Neuro : Moves all ext. with no localized deficit. Ext : No edema with intact pulses.Non tender calves Derm : No rashes or decubitus ulcer. LABS/RADIOLOGY: wbc 22.8--> 22.3 K 2.9 bLOOD CULTURES NEGATIVE GROWTH TO DATE. URINE CULTURE +ve KLEBSIELLA PNEUMONIAE S- tYGACIL. LFTS OKAY Objective - Vital Signs/Intake and Output Vital Signs (last 24 hours): Temp Pulse Resp BP Pulse Ox 97.6 F 53 L 20 153/84 H 96 02/15/17 15:05 02/15/17 15:05 02/15/17 15:05 02/15/17 15:05 02/15/17 15:05 Intake and Output: 02/15/17 02/16/17 18:59 06:59 Intake Total 640 Balance 640 - Medications Medications: Current Medications Alprazolam (Xanax) 1 mg PO Q8H [facility] Last Admin: 02/15/17 21:34 Dose: 1 mg Atenolol (Tenormin) 50 mg PO BID [facility] Last Admin: 02/15/17 17:23 Dose: 50 mg Clonidine HCl (Catapres) 0.2 mg PO BID [facility] Last Admin: 02/15/17 17:22 Dose: 0.2 mg Clopidogrel Bisulfate (Plavix) 75 mg PO DAILY [facility] Last Admin: 02/15/17 10:52 Dose: 75 mg Diphenhydramine HCl (Benadryl) 25 mg IM Q12H [facility] Last Admin: 02/15/17 21:35 Dose: Not Given Ergocalciferol (Drisdol 50,000 Intl Units Cap) 1 cap PO QWK [facility] Last Admin: 02/12/17 10:57 Dose: 1 cap Famotidine (Pepcid) 20 mg PO BID [facility] Last Admin: 02/15/17 17:23 Dose: 20 mg Furosemide (Lasix) 40 mg PO DAILY [facility] Last Admin: 02/15/17 10:53 Dose: 40 mg Hydralazine HCl (Apresoline) 50 mg PO BID [facility] Last Admin: 02/15/17 17:23 Dose: 50 mg Tigecycline 50 mg/ Sodium (Chloride) 100 mls @ 100 mls/hr IVPB Q12H [facility] Stop: 02/16/17 20:01 Last Admin: 02/15/17 19:19 Dose: 100 mls/hr Levothyroxine Sodium (Synthroid) 75 mcg PO DAILY@0630 [facility] Last Admin: 02/15/17 05:50 Dose: 75 mcg Magnesium Hydroxide (Milk Of Magnesia) 30 ml PO DAILY PRN PRN Reason: Constipation Mirtazapine (Remeron) 45 mg PO HS [facility] Last Admin: 02/15/17 21:34 Dose: 45 mg Multivitamins/Minerals (Therapeutic-M Tab) 1 tab PO DAILY [facility] Last Admin: 02/15/17 10:52 Dose: 1 tab Potassium Chloride (K-Dur 20 Meq Er Tab) 20 meq PO BID [facility] Last Admin: 02/15/17 17:23 Dose: 20 meq Prednisone (Prednisone Tab) 20 mg PO DAILY [facility] Last Admin: 02/15/17 15:00 Dose: 20 mg Rosuvastatin Calcium (Crestor) 5 mg PO HS [facility] Last Admin: 02/15/17 21:34 Dose: 5 mg Tamsulosin HCl (Flomax) 0.4 mg PO DAILY [facility] Last Admin: 02/15/17 10:53 Dose: 0.4 mg - Labs Labs: 02/14/17 11:02 02/15/17 13:54 Assessment and Plan (1) Allergic reaction caused by a drug Assessment & Plan: PATIENT IMPROVING ON iv sOLU-mEDROL AND iv TYGACI. Status: Acute (2) Cellulitis Assessment & Plan: IMPROVING Status: Acute (3) CHF (congestive heart failure) Status: Acute (4) Dementia Status: Acute (5) Hypertension Status: Acute (6) UTI (urinary tract infection) Assessment & Plan: FOLLOW-UP REPEAT ua URINE CULTURE. PT ON iv TYGACIL Status: Acute
[2017-02-16] MEDS: Levothyroxine 75 MCG TAB PO SCH (06:00)
[2017-02-16 07:51] LABS: BASO % 0.2 % (0.0-2.0); LYMPH # 17.6 K/uL (1.0-4.3); LYMPH % 66.5 % (20.0-40.0); MEAN CELL VOLUME 90.3 fL (81.0-99.0); MEAN CORPUSCULAR HEMOGLOBIN 29.3 pg (27.0-31.0); MEAN CORPUSCULAR HGB CONC 32.4 g/dL (33.0-37.0); MEAN PLATELET VOLUME 9.8 fL (7.2-11.7); MONO # 0.7 K/uL (0.0-0.8); MONO % 2.8 % (0.0-10.0); NEUT % 30.5 % (50.0-75.0); NRBC % 0.2 % (0.0-2.0); RBC 5.36 Mil/uL (3.80-5.20); RED CELL DISTRIBUTION WIDTH 16.7 % (11.5-14.5); WHITE BLOOD COUNT 26.4 K/uL (4.8-10.8)
[2017-02-16 07:54] LABS: HEMOGLOBIN 15.7 g/dL (11.0-16.0)
[2017-02-16 08:11] LABS: ALBUMIN 3.2 g/dL (3.5-5.0)
[2017-02-16 08:14] LABS: ALB/GLOB RATIO 1.2 (1.0-2.1); AST/SGOT 35 U/L (14-36); BILIRUBIN,DIRECT 0.4 mg/dL (0.0-0.4); BLOOD UREA NITROGEN 29 mg/dL (7-17); CALCIUM 7.9 mg/dl (8.6-10.4); GFR AFRICAN-AMERICAN > 60; GFR NON-AFRICAN AMERICAN > 60
[2017-02-16 08:15] LABS: ALT/SGPT 37 U/L (9-52)
[2017-02-16] MEDS: Multivitamin With Minerals Tab PO SCH (10:03)
[2017-02-16] MEDS: Potassium Chloride 20 mEq ER Tab PO SCH (10:03)
[2017-02-16] MEDS: DiphenhydrAMINE 50 mg/ml Inj IM SCH (10:04)
--- NOTE | 2017-02-16 12:08 | CP.PCM.PN ---
Subjective - Date & Time of Evaluation Date of Evaluation: 02/16/17 Time of Evaluation: 12:08 - Subjective Subjective: CHIEF COMPLAINTS TODAY : afebrile FACIAL SWELLING AND RASH COMPLETELY RESOLVED FEELING BETTER. dENIES ANY DYSURIA ROS. HEENT : FACIAL itching/swelling MUCH IMPROVED Resp : No cough, wheezing ,pleuritic CP ,or hemoptysis Cardio : No anginal CP, PND, orthopnea, palpitation GI : No abd.pain, n/v ,diarrhea or GI bleeding . 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 Musculoskel : No joint swelling , Derm : No rash Psych : Normal affect. Ext : No swelling ,calf pain PE. Pt. is alert awake in no distress. V.S As noted in the chart Head ,ear nose,throat and eyes : Normal. SWELLING AND CRUSTING OF RASH ON FACE AND CHIN wITH IMPROVING ERYTHEMA AND CELLULITIS. Neck : Supple with normal carotids. Lungs: Clear air entry. Heart : S1 & S2 normal with S4. No murmur. Abd : Soft non tender with normal bowel sounds. Neuro : Moves all ext. with no localized deficit. Ext : No edema with intact pulses.Non tender calves Derm : No rashes or decubitus ulcer. LABS/RADIOLOGY: wbc 26.0 SECONDARY TO STEROIDS bLOOD CULTURES NEGATIVE GROWTH TO DATE. URINE CULTURE +ve KLEBSIELLA PNEUMONIAE S- tYGACIL /BACTRIM LFTS OKAY Objective - Vital Signs/Intake and Output Vital Signs (last 24 hours): Temp Pulse Resp BP Pulse Ox 98 F 67 22 160/70 H 98 02/16/17 08:00 02/16/17 08:00 02/16/17 08:00 02/16/17 10:02 02/16/17 08:00 - Medications Medications: Current Medications Alprazolam (Xanax) 1 mg PO Q8H [facility] Last Admin: 02/16/17 06:00 Dose: 1 mg Atenolol (Tenormin) 50 mg PO BID [facility] Last Admin: 02/16/17 10:03 Dose: 50 mg Clonidine HCl (Catapres) 0.2 mg PO BID [facility] Last Admin: 02/16/17 10:02 Dose: 0.2 mg Clopidogrel Bisulfate (Plavix) 75 mg PO DAILY [facility] Last Admin: 02/16/17 10:03 Dose: 75 mg Diphenhydramine HCl (Benadryl) 25 mg IM Q12H [facility] Last Admin: 02/16/17 10:04 Dose: Not Given Ergocalciferol (Drisdol 50,000 Intl Units Cap) 1 cap PO QWK [facility] Last Admin: 02/12/17 10:57 Dose: 1 cap Famotidine (Pepcid) 20 mg PO BID [facility] Last Admin: 02/16/17 10:02 Dose: 20 mg Furosemide (Lasix) 40 mg PO DAILY [facility] Last Admin: 02/16/17 10:02 Dose: 40 mg Hydralazine HCl (Apresoline) 50 mg PO BID [facility] Last Admin: 02/16/17 10:02 Dose: 50 mg Tigecycline 50 mg/ Sodium (Chloride) 100 mls @ 100 mls/hr IVPB Q12H [facility] Stop: 02/16/17 20:01 Last Admin: 02/16/17 10:09 Dose: 100 mls/hr Levothyroxine Sodium (Synthroid) 75 mcg PO DAILY@0630 [facility] Last Admin: 02/16/17 06:00 Dose: 75 mcg Magnesium Hydroxide (Milk Of Magnesia) 30 ml PO DAILY PRN PRN Reason: Constipation Mirtazapine (Remeron) 45 mg PO HS [facility] Last Admin: 02/15/17 21:34 Dose: 45 mg Multivitamins/Minerals (Therapeutic-M Tab) 1 tab PO DAILY [facility] Last Admin: 02/16/17 10:03 Dose: 1 tab Potassium Chloride (K-Dur 20 Meq Er Tab) 20 meq PO BID [facility] Last Admin: 02/16/17 10:03 Dose: 20 meq Prednisone (Prednisone Tab) 20 mg PO DAILY [facility] Last Admin: 02/16/17 10:03 Dose: 20 mg Rosuvastatin Calcium (Crestor) 5 mg PO HS [facility] Last Admin: 02/15/17 21:34 Dose: 5 mg Tamsulosin HCl (Flomax) 0.4 mg PO DAILY [facility] Last Admin: 02/16/17 10:02 Dose: 0.4 mg Trimethoprim/Sulfamethoxazole (Bactrim Ss Tab) 1 tab PO ONCE ONE Stop: 02/16/17 12:16 - Labs Labs: 02/16/17 07:12 02/16/17 07:12 Assessment and Plan (1) Allergic reaction caused by a drug Assessment & Plan: IMPROVING. cAN SWITCH TO ORAL PREDNISONE PER ATTENDING Status: Acute (2) Cellulitis Status: Acute (3) CHF (congestive heart failure) Status: Acute (4) Dementia Status: Acute (5) Hypertension Status: Acute (6) UTI (urinary tract infection) Assessment & Plan: dc iv tYGACIL sTAT DOSE OFF SINGLE STRENGTH bACTRIM BY MOUTH AND OBSERVE PATIENT FOR 4 HOURS IF NO REACTION PATIENT CAN BE DISCHARGED ON BY MOUTH bACTRIM ONE DOUBLE STRENGTH TWICE A DAY FOR 5 DAYS. cASE DISCUSSED WITH ATTENDING AND STAFF.. Status: Acute
[2017-02-16] MEDS ORDERED: Tmp-Smz 400 mg-80 mg SS Tab PO ONE (12:15)
--- NOTE | 2017-02-16 12:56 | CP.PCM.DIS ---
Provider - Provider Date of Admission: 02/13/17 14:12 Attending physician: Jayshree Aiken MD Time Spent in preparation of Discharge (in minutes): 35 Hospital Course - Lab Results Lab Results: Micro Results 02/15/17 10:00 Urine,Clean Catch Urine Culture - Final No Growth (<1,000 CFU/ML) Most Recent Lab Values WBC 26.4 K/uL (4.8-10.8) H 02/16/17 07:12 RBC 5.36 Mil/uL (3.80-5.20) H 02/16/17 07:12 Hgb 15.7 g/dL (11.0-16.0) D 02/16/17 07:12 Hct 48.4 % (34.0-47.0) H 02/16/17 07:12 MCV 90.3 fL (81.0-99.0) 02/16/17 07:12 MCH 29.3 pg (27.0-31.0) 02/16/17 07:12 MCHC 32.4 g/dL (33.0-37.0) L 02/16/17 07:12 RDW 16.7 % (11.5-14.5) H 02/16/17 07:12 Plt Count 168 K/uL (130-400) 02/16/17 07:12 MPV 9.8 fL (7.2-11.7) 02/16/17 07:12 Neut % (Auto) 30.5 % (50.0-75.0) L 02/16/17 07:12 Lymph % (Auto) 66.5 % (20.0-40.0) H 02/16/17 07:12 Mitchell % (Auto) 2.8 % (0.0-10.0) 02/16/17 07:12 Eos % (Auto) 0.0 % (0.0-4.0) 02/16/17 07:12 Baso % (Auto) 0.2 % (0.0-2.0) 02/16/17 07:12 Neut # 8.0 K/uL (1.8-7.0) H 02/16/17 07:12 Lymph # 17.6 K/uL (1.0-4.3) H 02/16/17 07:12 Mitchell # 0.7 K/uL (0.0-0.8) 02/16/17 07:12 Eos # 0.0 K/uL (0.0-0.7) 02/16/17 07:12 Baso # 0.0 K/uL (0.0-0.2) 02/16/17 07:12 Neutrophils % (Manual) 24 % (50-75) L 02/11/17 05:20 Lymphocytes % (Manual) 67 % (20-40) H 02/11/17 05:20 Reactive Lymphs % 3 % (0-0) H 02/11/17 05:20 Monocytes % (Manual) 4 % (0-10) 02/11/17 05:20 Eosinophils % (Manual) 2 % (0-4) 02/11/17 05:20 Differential Comment 02/16/17 07:12 Platelet Estimate Normal (NORMAL) 02/11/17 05:20 Sodium 138 mmol/L (132-148) 02/16/17 07:12 Potassium 5.2 mmol/L (3.6-5.2) 02/16/17 07:12 Chloride 102 mmol/L (98-107) 02/16/17 07:12 Carbon Dioxide 25 mmol/L (22-30) 02/16/17 07:12 Anion Gap 16 (10-20) 02/16/17 07:12 BUN 29 mg/dL (7-17) H 02/16/17 07:12 Creatinine 0.7 MG/DL (0.7-1.2) 02/16/17 07:12 Est GFR ( Amer) > 60 02/16/17 07:12 Est GFR (Non-Af Amer) > 60 02/16/17 07:12 Random Glucose 83 mg/dL (65-105) 02/16/17 07:12 Calcium 7.9 mg/dl (8.6-10.4) L 02/16/17 07:12 Total Bilirubin 0.7 mg/dL (0.2-1.3) 02/16/17 07:12 Direct Bilirubin 0.4 mg/dL (0.0-0.4) 02/16/17 07:12 AST 35 U/L (14-36) 02/16/17 07:12 ALT 37 U/L (9-52) 02/16/17 07:12 Alkaline Phosphatase 95 U/L (38-126) 02/16/17 07:12 Total Creatine Kinase 60 U/L (30-135) 02/16/17 07:12 Total Protein 6.0 g/dL (6.3-8.3) L 02/16/17 07:12 Albumin 3.2 g/dL (3.5-5.0) L 02/16/17 07:12 Globulin 2.7 gm/dL (2.2-3.9) 02/16/17 07:12 Albumin/Globulin Ratio 1.2 (1.0-2.1) 02/16/17 07:12 Urine Color Yellow (YELLOW) 02/15/17 06:44 Urine Clarity Clear (Clear) 02/15/17 06:44 Urine pH 6.0 (5.0-8.0) 02/15/17 06:44 Ur Specific [place] 1.011 (1.003-1.030) 02/15/17 06:44 Urine Protein Negative mg/dL (NEGATIVE) 02/15/17 06:44 Urine Glucose (UA) Normal mg/dL (Normal) 02/15/17 06:44 Urine Ketones Negative mg/dL (NEGATIVE) 02/15/17 06:44 Urine Blood Negative (NEGATIVE) 02/15/17 06:44 Urine Nitrate Negative (NEGATIVE) 02/15/17 06:44 Urine Bilirubin Negative (NEGATIVE) 02/15/17 06:44 Urine Urobilinogen Normal mg/dL (0.2-1.0) 02/15/17 06:44 Ur Leukocyte Esterase Neg Benji/uL (Negative) 02/15/17 06:44 Urine WBC (Auto) 1 /hpf (0-5) 02/15/17 06:44 Urine RBC (Auto) 1 /hpf (0-3) 02/15/17 06:44 Urine Bacteria Rare (<OCC) 02/11/17 06:46 - Hospital Course Hospital Course: PRESENTED TO ER WITH SWELLING OF FACE AND FEELING WARM . O TRAUMA OR CUTS ON THE FACE . RECENTLY APPLIED FUNGUL CREAM FOR NAILS ON THE FACE . WBC COUNT WAS 13.7 K PAST HIST. HTN/CARD. ARRYTHMIA /CVA/VERTIGO/COPD/ANXIETY DEPRESSION /MULTIPLE ALLEGIES URINE WAS POS FOR INFECTION PT RESPONDED WITH IB AB AND STEROIDS AND BENADRYL THE LESIONS ON THE FACE HAS SUBSIDED PT WILL BE D/C ON PO BACTRIM IF THERE IS NO ALLERGY Discharge Exam - Head Exam Head Exam: NORMAL INSPECTION Discharge Plan - Follow Up Plan Condition: STABLE Disposition: HOME/ ROUTINE
[2017-02-16 16:12] VITALS: BP 133/80; PULSE 63; RESP 20; TEMP 97.3; O2SAT 96
--- NOTE | 2017-02-16 16:44 | CP.PCM.PN ---
Subjective - Date & Time of Evaluation Date of Evaluation: 02/16/17 Time of Evaluation: 15:00 - Subjective Subjective: DISEASE EDUCATION SPECIALIST NOTES Pt seen an dexamined today , states feels better, rashes on face and swelling improved a febrile stat dose of bactrim given an d patient tolerated without any reaction Objective - Vital Signs/Intake and Output Vital Signs (last 24 hours): Temp Pulse Resp BP Pulse Ox 97.3 F L 63 20 133/80 96 02/16/17 15:00 02/16/17 15:00 02/16/17 15:00 02/16/17 15:00 02/16/17 15:00 Intake and Output: 02/16/17 02/16/17 06:59 18:59 Intake Total 500 Balance 500 - Medications Medications: Current Medications Alprazolam (Xanax) 1 mg PO Q8H [facility] Last Admin: 02/16/17 14:09 Dose: 1 mg Atenolol (Tenormin) 50 mg PO BID [facility] Last Admin: 02/16/17 10:03 Dose: 50 mg Clonidine HCl (Catapres) 0.2 mg PO BID [facility] Last Admin: 02/16/17 10:02 Dose: 0.2 mg Clopidogrel Bisulfate (Plavix) 75 mg PO DAILY [facility] Last Admin: 02/16/17 10:03 Dose: 75 mg Diphenhydramine HCl (Benadryl) 25 mg IM Q12H [facility] Last Admin: 02/16/17 10:04 Dose: Not Given Ergocalciferol (Drisdol 50,000 Intl Units Cap) 1 cap PO QWK [facility] Last Admin: 02/12/17 10:57 Dose: 1 cap Famotidine (Pepcid) 20 mg PO BID [facility] Last Admin: 02/16/17 10:02 Dose: 20 mg Furosemide (Lasix) 40 mg PO DAILY [facility] Last Admin: 02/16/17 10:02 Dose: 40 mg Hydralazine HCl (Apresoline) 50 mg PO BID [facility] Last Admin: 02/16/17 10:02 Dose: 50 mg Tigecycline 50 mg/ Sodium (Chloride) 100 mls @ 100 mls/hr IVPB Q12H [facility] Stop: 02/16/17 20:01 Last Admin: 02/16/17 10:09 Dose: 100 mls/hr Levothyroxine Sodium (Synthroid) 75 mcg PO DAILY@0630 [facility] Last Admin: 02/16/17 06:00 Dose: 75 mcg Magnesium Hydroxide (Milk Of Magnesia) 30 ml PO DAILY PRN PRN Reason: Constipation Mirtazapine (Remeron) 45 mg PO HS [facility] Last Admin: 02/15/17 21:34 Dose: 45 mg Multivitamins/Minerals (Therapeutic-M Tab) 1 tab PO DAILY [facility] Last Admin: 02/16/17 10:03 Dose: 1 tab Prednisone (Prednisone Tab) 20 mg PO DAILY [facility] Last Admin: 02/16/17 10:03 Dose: 20 mg Rosuvastatin Calcium (Crestor) 5 mg PO HS [facility] Last Admin: 02/15/17 21:34 Dose: 5 mg Tamsulosin HCl (Flomax) 0.4 mg PO DAILY [facility] Last Admin: 02/16/17 10:02 Dose: 0.4 mg - Labs Labs: 02/16/17 07:12 02/16/17 07:12
== END 2017-02-16 17:55 | disposition home or self-care (01) | DRG 603 ==
LOC: C.ER 03:17 → INTOOBSV 07:26 → C.9E 07:26 → C.6T 09:36 → OBSVTOIN 02-13 14:12 → C.3T 02-15 08:19
PROVIDERS: ADMIT Internal Medicine Cardiovascular Disease; ATTEND Internal Medicine Cardiovascular Disease
DX: L03.211 Cellulitis of face (principal); I11.0 Hypertensive heart disease with heart failure; I50.9 Heart failure, unspecified; N39.0 Urinary tract infection, site not specified; G30.9 Alzheimer's disease, unspecified; T49.0X5A Adverse effect of local antifungal, anti-infective and anti-inflammatory drugs, initial encounter; F02.80 Dementia in other diseases classified elsewhere, unspecified severity, without behavioral disturbance, psychotic disturbance, mood disturbance, and anxiety; E03.9 Hypothyroidism, unspecified; B96.1 Klebsiella pneumoniae [K. pneumoniae] as the cause of diseases classified elsewhere; E78.00 Pure hypercholesterolemia, unspecified; F31.9 Bipolar disorder, unspecified; F41.8 Other specified anxiety disorders; G47.30 Sleep apnea, unspecified; H91.90 Unspecified hearing loss, unspecified ear; I25.10 Atherosclerotic heart disease of native coronary artery without angina pectoris; J44.9 Chronic obstructive pulmonary disease, unspecified; L53.9 Erythematous condition, unspecified; M81.0 Age-related osteoporosis without current pathological fracture; Z86.73 Personal history of transient ischemic attack (TIA), and cerebral infarction without residual deficits; Z87.891 Personal history of nicotine dependence; Z90.49 Acquired absence of other specified parts of digestive tract

== ENCOUNTER 2017-03-06 11:16 | Inpatient (IN) | payer MEDICARE, MEDICAID ==
[2017-03-06 11:16] VITALS: BMI 29.0
--- NOTE | 2017-03-06 13:47 | RAD ---
PROCEDURE: CHEST RADIOGRAPH, 1 VIEW HISTORY: cellulitis COMPARISON: 11/21/2016 FINDINGS: LUNGS: Clear. PLEURA: No pneumothorax or pleural fluid seen. CARDIOVASCULAR: Normal. OSSEOUS STRUCTURES: No significant abnormalities. VISUALIZED UPPER ABDOMEN: Normal. OTHER FINDINGS: None. IMPRESSION: No active disease.
[2017-03-06 13:53] LABS: RBC URINE < 1 /hpf (0-3); URINE BILIRUBIN NEGATIVE (NEGATIVE); URINE BLOOD NEGATIVE (NEGATIVE); URINE COLOR Straw (YELLOW); URINE GLUCOSE (UA) NORMAL (Normal); URINE KETONE NEGATIVE (NEGATIVE); URINE LEUKOCYTE ESTERASE NEG Leu/uL (Negative); URINE PROTEIN NEGATIVE (NEGATIVE); URINE UROBILINOGEN NORMAL mg/dL (0.2-1.0); WBC URINE < 1 /hpf (0-5)
[2017-03-06 14:01] LABS: BASO % 0.3 % (0.0-2.0); EOS # 0.3 K/uL (0.0-0.7); HEMATOCRIT 40.7 % (34.0-47.0); LYMPH # 8.2 K/uL (1.0-4.3); MEAN CELL VOLUME 91.1 fL (81.0-99.0); MEAN CORPUSCULAR HEMOGLOBIN 29.9 pg (27.0-31.0); MEAN CORPUSCULAR HGB CONC 32.8 g/dL (33.0-37.0); MEAN PLATELET VOLUME 9.2 fL (7.2-11.7); MONO # 0.4 K/uL (0.0-0.8); MONO % 3.9 % (0.0-10.0); NRBC % 0.1 % (0.0-2.0); RED CELL DISTRIBUTION WIDTH 16.4 % (11.5-14.5)
[2017-03-06 14:04] LABS: PLATELET COUNT 115 K/uL (130-400); WHITE BLOOD COUNT 10.9 K/uL (4.8-10.8)
[2017-03-06 14:07] LABS: ALB/GLOB RATIO 1.3 (1.0-2.1); ALKALINE PHOSPHATASE 90 U/L (38-126); ALT/SGPT 40 U/L (9-52); AST/SGOT 37 U/L (14-36); BILIRUBIN,TOTAL 0.6 mg/dL (0.2-1.3); BLOOD UREA NITROGEN 18 mg/dL (7-17); CALCIUM 9.1 mg/dl (8.6-10.4); CARBON DIOXIDE 27 mmol/L (22-30); CHLORIDE 103 mmol/L (98-107); GFR AFRICAN-AMERICAN > 60; GLUCOSE,RANDOM 86 mg/dL (65-105); POTASSIUM 4.3 mmol/L (3.6-5.2); SODIUM 141 mmol/L (132-148); TOTAL PROTEIN 6.4 g/dL (6.3-8.3)
[2017-03-06 14:50] LABS: EOSINOPHIL 1 % (0-4); NEUTROPHIL 17 % (50-75); REACTIVE LYMPHOCYTES 2 % (0-0); TOTAL CELLS COUNTED 100
--- NOTE | 2017-03-06 16:34 | C.PDOC ---
History Of Present Illness 81 year old female presents to the emergency department with complaints of redness, swelling, itching, and pain to the left cheek since yesterday afternoon. Patient states she was seen in January 2017 and admitted with cellulitis of the face. Patient used cream on face today and symptoms developed. She denies fever, throat pain, or any other complaints at this time. Time Seen by Provider: 03/06/17 11:40 Chief Complaint (Nursing): Abnormal Skin Integrity History Per: Patient History/Exam Limitations: no limitations Onset/Duration Of Symptoms: Days (1 day) Current Symptoms Are (Timing): Still Present Location Of Injury: Left: Face (cheek) Quality Of Symptoms: Painful, Itching, Swollen, Other (erythematus ) Recent travel outside of the [place]: No Additional History Per: Prior Records Past Medical History Reviewed: Historical Data, Nursing Documentation, Vital Signs Vital Signs: Last Vital Signs Temp 98.2 F 03/06/17 18:00 Pulse 70 03/06/17 18:00 Resp 20 03/06/17 18:00 BP 185/99 H 03/06/17 18:00 Pulse Ox 92 L 03/06/17 18:32 - Medical History PMH: Alzheimer's Disease (Mild dementia and confusion noted), Anxiety, Arthritis (b/l knees and ankles), Asthma, Back Problems (scaitica), Bipolar Disorder (Patient used to take multiple medications, being seen by a psychiatrist), CAD, Cardia Arrhythmia (palpitation), COPD, CVA, Diverticulitis, Gastritis, HTN, Hypercholesterolemia, Hypothyroidism, Osteoporosis, Sleep Apnea Surgical History: Appendectomy, Cholecystectomy, - [facility] Procedures COLONOSCOPY (03/28/15) INJECT/INFUSE NEC (01/01/14) OCCUPATIONAL THERAPY (05/13/13) PHYSICAL THERAPY NEC (05/13/13) Family History: States: Unknown Family Hx - Social History Hx Tobacco Use: No Hx Alcohol Use: No Hx Substance Use: No - Immunization History Hx Tetanus Toxoid Vaccination: Yes Hx Influenza Vaccination: Yes Hx Pneumococcal Vaccination: Yes Review Of Systems Constitutional: Negative for: Fever, Chills ENT: Negative for: Mouth Swelling, Throat Pain, Throat Swelling Cardiovascular: Negative for: Chest Pain Respiratory: Negative for: Shortness of Breath Gastrointestinal: Negative for: Nausea, Vomiting, Abdominal Pain, Diarrhea Skin: Positive for: Rash (itching, swelling, and pain to left cheek ) Physical Exam - Physical Exam Appears: Non-toxic, No Acute Distress Skin: Warm, Dry, No Rash, Other (no skin lesions ) Head: Tenderness (of the left buccal area to the inferior left eye and lower eyelid ), Swelling (swelling of the left buccal area to the inferior left eye and lower eyelid with warmth ) Oral Mucosa: Moist Tongue: Normal Appearing, No Swelling Lips: Normal Appearing, No Swelling Throat: Normal, No Erythema, No Exudate Neck: Supple Chest: Symmetrical, No Deformity Cardiovascular: Rhythm Regular Respiratory: Normal Breath Sounds, No Rhonchi, No Wheezing Neurological/Psych: Oriented x3, Normal Speech, Normal Cognition, Normal Cranial Nerves ED Course And Treatment - Laboratory Results Result Diagrams: 03/06/17 13:52 03/06/17 13:52 O2 Sat by Pulse Oximetry: 92 (room air ) Progress Note: Patient was given benadryl and solumedrol. Labs were performed and case discussed with Dr. Aiken. - Physician Consult Information Time Consulting Physician Contacted: 17:15 Physician Contacted: Jayshree Aiken Outcome Of Conversation: Dr. Aiken is patient's PMD and is accepting for admission. Disposition - Disposition Disposition: HOSPITALIZED Disposition Time: 16:34 Condition: FAIR - Clinical Impression Clinical Impression: Cellulitis - Scribe Statement The provider has reviewed the documentation as recorded by the Scribe Rachel Mata All medical record entries made by the Scribe were at my direction and personally dictated by me. I have reviewed the chart and agree that the record accurately reflects my personal performance of the history, physical exam, medical decision making, and the department course for this patient. I have also personally directed, reviewed, and agree with the discharge instructions and disposition. Decision To Admit - Pt Status Changed To: Hospital Disposition Of: Inpatient - Admit Certification Admit to Inpatient:: After my assessment, the patient will require hospitalization for at least two midnights. This is because of the severity of symptoms shown, intensity of services needed, and/or the medical risk in this patient being treated as an outpatient. - InPatient: Physician Admission Certification: I certify that this patient requires 2 or more midnights of care for the following reason:: Will need more than 2 days of IV antibiotics. - . Bed Request Type: Regular Admitting Physician: Jayshree Aiken Patient Diagnosis: Cellulitis
[2017-03-06 18:17] VITALS: RESP 20
[2017-03-06] MEDS: MethylPREDNISolone 40 mg Vial IVP SCH (20:03)
--- NOTE | 2017-03-06 20:24 | CP.PCM.CON ---
History of Present Illness - History of Present Illness History of Present Illness: INFECTIOUS DISEASE CONSULT; HPI; History of Present Illness: .81-year-old female with history of HTN, CAD, asthma, hypothyroidism, hypercholesterolemia, CVA, anxiety and early dementia admitted via the emergency room because of complaints of redness and swelling and itching of B/L cheeks since yesterday afternoon. Patient was seen here in February 11, 2017 for similar complaints and cellulitis of the face. Patient admits to using a facial cream today and the symptoms developed. She denies any fever or chills. Denies any throat pain or difficulty swallowing or swelling of the tongue. Patient denies any rash anywhere else. Patient was given a dose of IV Solu-Medrol 125 mg in the ER and started on Benadryl as noted. Infectious disease consultation requested by PMD for further evaluation FOR HER ALLERGIC REACTION AND CELLULITIS OF THE FACE.. Allergies; CARBAPENEMS, CEPHALOSPORINS, AZTREONAM, ASPIRIN, AND MORE SEE CHART. PMH: Alzheimer's Disease (Mild dementia and confusion noted), Anxiety, Arthritis (b/l knees and ankles), Asthma, Back Problems (scaitica), Bipolar Disorder (Patient used to take multiple medications, being seen by a psychiatrist), CAD, Cardia Arrhythmia (palpitation), COPD, CVA, Diverticulitis, Gastritis, HTN, Hypercholesterolemia, Hypothyroidism, Osteoporosis, Sleep Apnea Surgical History: Appendectomy, Cholecystectomy, - [facility] Procedures COLONOSCOPY (03/28/15) INJECT/INFUSE NEC (01/01/14) OCCUPATIONAL THERAPY (05/13/13) PHYSICAL THERAPY NEC (05/13/13) Family History: States: Unknown Family Hx - Social History Hx Tobacco Use: No Hx Alcohol Use: No Hx Substance Use: No - Immunization History Hx Tetanus Toxoid Vaccination: Yes Hx Influenza Vaccination: Yes Hx Pneumococcal Vaccination: Yes Review of Systems - Constitutional Constitutional: absent: Chills, Fever - EENT Eyes: absent: Change in Vision, Itchy Eyes Nose/Mouth/Throat: Facial Pain (PATIENT ITCHING AND FLUSHING OFF THE FACE.). absent: Nasal Congestion, Mouth Lesions, Odynophagia, Throat Swelling, Tongue Swelling - Cardiovascular Cardiovascular: absent: Chest Pain, Dyspnea - Respiratory Respiratory: absent: Cough - Gastrointestinal Gastrointestinal: absent: Abdominal Pain, Diarrhea, Nausea, Vomiting - Genitourinary Genitourinary: absent: Dysuria, Urinary Hesitance - Integumentary Integumentary: Rash, Swelling (ON THE FACE WITH CELLULITIS LEFT CHEEK.) - Neurological Neurological: absent: Dizziness, Headaches - Psychiatric Psychiatric: Anxiety, Memory Loss - Hematologic/Lymphatic Hematologic: As Per HPI. absent: Lymphadenopathy Past Patient History - Infectious Disease Hx of Infectious Diseases: None - Tetanus Immunizations Tetanus Immunization: Up to Date - Past Medical History & Family History Past Medical History?: Yes - Past Social History Smoking Status: Former Smoker - CARDIAC Hx Cardia Arrhythmia: Yes (palpitation) Hx Hypercholesterolemia: Yes Hx Hypertension: Yes - PULMONARY Hx Asthma: Yes Hx Chronic Obstructive Pulmonary Disease (COPD): Yes Hx Sleep Apnea: Yes - NEUROLOGICAL Hx Alzheimer's Disease: Yes (Mild dementia and confusion noted) - HEENT Hx HEENT Problems: Yes Hx Deafness: Yes (LEFT EAR) - RENAL Hx Chronic Kidney Disease: No - ENDOCRINE/METABOLIC Hx Hypothyroidism: Yes - INTEGUMENTARY Hx Dermatological Problems: Yes Hx Basil Cell: Yes (FACE, ARMS) - MUSCULOSKELETAL/RHEUMATOLOGICAL Hx Arthritis: Yes (b/l knees and ankles) Hx Osteoporosis: Yes - GASTROINTESTINAL Hx Diverticulitis: Yes Hx Gastritis: Yes - GENITOURINARY/GYNECOLOGICAL Hx Genitourinary Disorders: Yes Hx Incontinence: Yes - PSYCHIATRIC Hx Anxiety: Yes Hx Bipolar Disorder: Yes (Patient used to take multiple medications, being seen by a psychiatrist) Hx Substance Use: No - SURGICAL HISTORY Hx Appendectomy: Yes Hx Cholecystectomy: Yes - ANESTHESIA Hx Anesthesia: Yes Hx Anesthesia Reactions: No Hx Malignant Hyperthermia: No Meds Allergies/Adverse Reactions: Allergies Allergy/AdvReac Type Severity Reaction Status Date / Time Carbapenems Allergy Intermediate Verified 03/06/17 11:28 Cephalosporins Allergy Intermediate Verified 03/06/17 11:28 aztreonam Allergy Mild Verified 03/06/17 11:28 aspirin Allergy Verified 03/06/17 11:28 ciprofloxacin [From Cipro] Allergy Verified 03/06/17 11:28 ciprofloxacin HCl Allergy Verified 03/06/17 11:28 [From Cipro] Penicillins Allergy Verified 03/06/17 11:28 - Medications Medications: Current Medications Alprazolam (Xanax) 1 mg PO BID [facility] Atenolol (Tenormin) 50 mg PO BID [facility] Last Admin: 03/06/17 20:02 Dose: 50 mg Clonidine HCl (Catapres) 0.2 mg PO BID [facility] Clopidogrel Bisulfate (Plavix) 75 mg PO DAILY [facility] Diphenhydramine HCl (Benadryl) 25 mg PO Q8 [facility] Stop: 03/08/17 14:01 Docusate Sodium (Colace) 100 mg PO BID [facility] Famotidine (Pepcid) 20 mg PO HS [facility] Furosemide (Lasix) 40 mg PO DAILY [facility] Heparin Sodium (Porcine) (Heparin) 5,000 units SC BID [facility] Hydralazine HCl (Apresoline) 50 mg PO BID [facility] Last Admin: 03/06/17 20:03 Dose: 50 mg Levothyroxine Sodium (Synthroid) 75 mcg PO DAILY@0630 [facility] Lisinopril (Zestril) 40 mg PO DAILY [facility] Methylprednisolone (Solu-Medrol) 40 mg IVP Q6H [facility] Last Admin: 03/06/17 20:03 Dose: 40 mg Mirtazapine (Remeron) 15 mg PO HS [facility] Rosuvastatin Calcium (Crestor) 5 mg PO HS [facility] Tamsulosin HCl (Flomax) 0.4 mg PO DAILY [facility] Physical Exam - Constitutional Appears: No Acute Distress - Head Exam Head Exam: NORMAL INSPECTION - Eye Exam Eye Exam: EOMI, PERRL - ENT Exam ENT Exam: Normal Oropharynx Additional comments: PATIENT HAS BILATERAL SWELLING OF THE CHEEKS L > RT WITH CELLULITIS AND ERYTHEMA EXTENDING BELOW THE EYELIDS AND ALSO CIRCUMORAL. MUCOSA NOT INVOLVED. - Neck Exam Neck exam: Positive for: Normal Inspection. Negative for: Lymphadenopathy - Respiratory Exam Respiratory Exam: Clear to Auscultation Bilateral. absent: Wheezes - Cardiovascular Exam Cardiovascular Exam: REGULAR RHYTHM, +S1, +S2 - GI/Abdominal Exam GI & Abdominal Exam: Normal Bowel Sounds, Soft. absent: Tenderness - Extremities Exam Extremities exam: Positive for: pedal pulses present. Negative for: calf tenderness, pedal edema - Neurological Exam Neurological exam: Alert, CN II-XII Intact, Oriented x3, Reflexes Normal - Psychiatric Exam Psychiatric exam: Anxious, Normal Mood - Skin Skin Exam: Normal Color, Warm Results - Vital Signs Recent Vital Signs: Last Vital Signs Temp 98.2 F 03/06/17 18:00 Pulse 70 03/06/17 18:00 Resp 20 03/06/17 18:00 BP 185/99 H 03/06/17 18:00 Pulse Ox 92 L 03/06/17 18:51 - Labs Result Diagrams: 03/07/17 06:08 03/07/17 06:08 - Imaging and Cardiology Chest x-ray Status: Report reviewed by me (no active disease.) Assessment & Plan (1) Cellulitis Status: Acute (2) Allergic reaction caused by a drug Status: Acute (3) Dementia Status: Acute (4) Skin irritation Status: Acute - Assessment and Plan (Free Text) Plan: PLAN; PANCULTURES ESR. CRP. SERUM IGE LEVELS PATIENT GOT 1 DOSE OF sOLU-mEDROL 125 MG LOADING DOSE, FOLLOW-UP WITH 40 MG EVERY 6HRLY X3DAYS. START iv TYGACIL 100 MG LOADING DOSE FOLLOWED BY 50 MG EVERY 12 HOURLY.03/06/19. PATIENT HAS TOLERATED iv tYGACIL IN THE PAST.PATIENT HAS MANY ALLERGIES PER NOTES. BENADRYL WHEN NECESSARY PER PMD. PATIENT UNABLE TO GIVE THE NAME OF THE CREAM WHICH SHE USED ON HER FACE. SHE IS FORGETFUL. wILL FOLLOW PATIENT WHILE IN THE HOUSE.
[2017-03-06] MEDS ORDERED: Tigecycline 50 MG in Dextrose 5% In Water 100 ML IVPB SCH (20:30)
--- NOTE | 2017-03-06 21:18 | CP.PCM.HP ---
History of Present Illness - History of Present Illness History of Present Illness: COMPREHENSIVE HISTORY & PHYSICAL EXAM HPI 81 years old woman presented to [facility]. with swelling of the face. Patient is a poor historian and cannot recall exactly what local cream application. She applied but apparently she woke up in the morning with swelling of the face with slight difficulty in breathing and also visual discomfort. In the ER patient was found to have subcutis swelling on the face. Patient recently had a similar episode a month ago was admitted in the hospital with possible cellulitis and allergic reaction to local application of some ointment. Patient has multiple allergies to drugs and food. PAST HIST. hypertension, coronary artery disease, CVA, vertigo, 1 PERSONAL HIST: Smoking. N Alcohol. N Allergy N Travel_- . FAMILY HIST : ROS : Constitutional: Negative for weight change, chills, night sweats,. Eyes: Negative for redness, swelling, itching, discharge, vision changes, blurry vision, double vision, glaucoma, cataracts, Ears: pos for hearing loss, ringing, , tinnitus, vertigo Nose: Negative for rhinorrhea, stuffiness, sniffing, itching, postnasal drip, discoloration, nasal congestion and epistaxis. Throat: Negative for throat clearing, sore throat, hoarseness, difficulty swallowing and difficulty speaking. Respiratory: Negative for cough, chest tightness, sputum or phlegm, chronic cough, hemoptysis, wheezing, snoring at night, pleuritic chest pain and daytime somnolence. Cardiovascular: Negative for chest pain, palpitations, orthopnea, PND, Edema of legs, leg cramps, angina, claudication, , irregular heartbeat, Neurology: Negative for irritability, muscle weakness, numbness and tingling, seizures, tremors, migraines, slurred speech, syncope, memory loss, mood changes , recurrent headaches Gastrointestinal: Negative for difficulty swallowing, diarrhea, constipation, black stools, rectal bleeding, nausea, flatulence, reflux, poor appetite, changes in bowel habits, abdominal pain Genitourinary: Negative for frequent urination, hematuria, discharge, incontinence, urinary retention, frequent UTI, Psychiatric: Negative for depression, anxiety/panic, suicidal tendencies, Musculoskeletal: Negative for swollen joints, back pain, , neck pain, morning stiffness of joints, . Skin: Negative for rash, ulcers, itching, dry skin and pigmented lesions. P/E: Constitutional: Appears stated age and in no apparent distress. Head: Normocephalic. Ears: External ear canals patent without inflammation. Tympanic membranes intact with normal light reflex and landmark. Eyes: Pupils are central, bilaterally equal, symmetrical and reacts to light with normal movements and no icterus or pallor. Nose: External nares are patent. Mucosa is pink Mouth-Throat: Good general appearance and condition. No post-pharyngeal/oropharyngeal erythema and tonsillar hypertrophy. Good dental hygiene. Face: most of the skin covering the facial muscle is swollen, erythematous and warm. Neck-Lymphatic: Neck is supple with normal ROM, no thyromegaly, lymph nodes or masses. JVD is normal with no carotid bruit. Lungs: Clear to percussion and auscultation with bilateral normal air entry. Cardiovascular: S1 and S2 are normal with no murmurs, gallops and rub. GI Exam: No hepatomegaly. Abdomen is soft and non-tender. No Organomegaly , masses or hernias are evident and bowel sounds are normal and active. Neurology: Higher function and all cranial nerves intact, with no gross motor or sensory deficit. Superficial and deep reflexes are normal with downwards planters. No cerebellar deficit with normal gait. Musculoskeletal: No tender spots with normal curvature of the spine with no swelling or restricted ROM of the small and large joints. Extremities: Homans sign absent. Intact pulses with no pitting edema, calf tenderness or skin color changes. Skin: No rash, eruptions or abnormal skin pigmentation LAB/RADIOLOGY: ASSESMENT : Urticaria/cellulitis of the face. Hypertension. Dizzy spells. plan IV antibiotics, steroids and antihistaminics. Present on Admission - Present on Admission Any Indicators Present on Admission: No Past Patient History - Infectious Disease Hx of Infectious Diseases: None - Tetanus Immunizations Tetanus Immunization: Up to Date - Past Medical History & Family History Past Medical History?: Yes - Past Social History Smoking Status: Former Smoker - CARDIAC Hx Cardia Arrhythmia: Yes (palpitation) Hx Hypercholesterolemia: Yes Hx Hypertension: Yes - PULMONARY Hx Asthma: Yes Hx Chronic Obstructive Pulmonary Disease (COPD): Yes Hx Sleep Apnea: Yes - NEUROLOGICAL Hx Alzheimer's Disease: Yes (Mild dementia and confusion noted) - HEENT Hx HEENT Problems: Yes Hx Deafness: Yes (LEFT EAR) - RENAL Hx Chronic Kidney Disease: No - ENDOCRINE/METABOLIC Hx Hypothyroidism: Yes - INTEGUMENTARY Hx Dermatological Problems: Yes Hx Basil Cell: Yes (FACE, ARMS) - MUSCULOSKELETAL/RHEUMATOLOGICAL Hx Arthritis: Yes (b/l knees and ankles) Hx Osteoporosis: Yes - GASTROINTESTINAL Hx Diverticulitis: Yes Hx Gastritis: Yes - GENITOURINARY/GYNECOLOGICAL Hx Genitourinary Disorders: Yes Hx Incontinence: Yes - PSYCHIATRIC Hx Anxiety: Yes Hx Bipolar Disorder: Yes (Patient used to take multiple medications, being seen by a psychiatrist) Hx Substance Use: No - SURGICAL HISTORY Hx Appendectomy: Yes Hx Cholecystectomy: Yes - ANESTHESIA Hx Anesthesia: Yes Hx Anesthesia Reactions: No Hx Malignant Hyperthermia: No Meds Allergies/Adverse Reactions: Allergies Allergy/AdvReac Type Severity Reaction Status Date / Time Carbapenems Allergy Intermediate Verified 03/06/17 11:28 Cephalosporins Allergy Intermediate Verified 03/06/17 11:28 aztreonam Allergy Mild Verified 03/06/17 11:28 aspirin Allergy Verified 03/06/17 11:28 ciprofloxacin [From Cipro] Allergy Verified 03/06/17 11:28 ciprofloxacin HCl Allergy Verified 03/06/17 11:28 [From Cipro] Penicillins Allergy Verified 03/06/17 11:28 Results - Vital Signs Recent Vital Signs: Last Vital Signs Temp 98.2 F 03/06/17 18:00 Pulse 70 03/06/17 18:00 Resp 20 03/06/17 18:00 BP 185/99 H 03/06/17 18:00 Pulse Ox 92 L 03/06/17 18:51 - Labs Result Diagrams: 03/06/17 13:52 03/06/17 13:52
[2017-03-07] MEDS: MethylPREDNISolone 40 mg Vial IVP SCH ×4 (02:04→19:25)
[2017-03-07] MEDS: Levothyroxine 75 MCG TAB PO SCH (05:36)
[2017-03-07 06:17] LABS: BASO # 0.1 K/uL (0.0-0.2); BASO % 0.7 % (0.0-2.0); LYMPH # 9.5 K/uL (1.0-4.3); LYMPH % 64.7 % (20.0-40.0); MEAN CELL VOLUME 90.9 fL (81.0-99.0); MEAN CORPUSCULAR HEMOGLOBIN 29.8 pg (27.0-31.0); MEAN CORPUSCULAR HGB CONC 32.8 g/dL (33.0-37.0); MEAN PLATELET VOLUME 9.4 fL (7.2-11.7); MONO # 0.1 K/uL (0.0-0.8); MONO % 0.5 % (0.0-10.0); RED CELL DISTRIBUTION WIDTH 16.8 % (11.5-14.5); WHITE BLOOD COUNT 14.7 K/uL (4.8-10.8)
[2017-03-07 06:38] LABS: ALB/GLOB RATIO 1.4 (1.0-2.1); ALKALINE PHOSPHATASE 94 U/L (38-126); ALT/SGPT 33 U/L (9-52); AST/SGOT 32 U/L (14-36); BILIRUBIN,TOTAL 0.3 mg/dL (0.2-1.3); BLOOD UREA NITROGEN 26 mg/dL (7-17); CALCIUM 9.1 mg/dl (8.6-10.4); CARBON DIOXIDE 26 mmol/L (22-30); CHLORIDE 105 mmol/L (98-107); GFR AFRICAN-AMERICAN > 60; GLUCOSE,RANDOM 154 mg/dL (65-105); POTASSIUM 3.9 mmol/L (3.6-5.2); SODIUM 139 mmol/L (132-148); TOTAL PROTEIN 6.1 g/dL (6.3-8.3)
--- NOTE | 2017-03-07 13:36 | CP.PCM.PN ---
Subjective - Date & Time of Evaluation Date of Evaluation: 03/07/17 Time of Evaluation: 13:34 - Subjective Subjective: CHIEF COMPLAINTS TODAY : FACIAL PAIN AND SWELLING ROS. HEENT : PAIN ON L. MAXILLARY BONE Resp : No cough, wheezing ,pleuritic CP ,or hemoptysis Cardio : No anginal CP, PND, orthopnea, palpitation GI : No abd.pain, n/v ,diarrhea or GI bleeding . 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 Musculoskel : No joint swelling , Derm : No rash Psych : Normal affect. Ext : No swelling ,calf pain PE. Pt. is alert awake in no distress. V.S As noted in the chart Head ,SWELLING OF FACE MORE PROMINENT LEFT MAXILLARY SINUS AND BOTH LOWER EYELIDS Neck : Supple with normal carotids. Lungs: Clear air entry. Heart : S1 & S2 normal with S4. No murmur. Abd : Soft non tender with normal bowel sounds. Neuro : Moves all ext. with no localized deficit. Ext : No edema with intact pulses.Non tender calves Derm : No rashes or decubitus ulcer. LABS/RADIOLOGY: ASSESSMENT/PLAN : IV AB/STEROIDS/BENEDRYL Objective - Vital Signs/Intake and Output Vital Signs (last 24 hours): Temp Pulse Resp BP Pulse Ox 98.0 F 79 20 172/96 H 96 03/07/17 09:33 03/07/17 09:33 03/07/17 09:33 03/07/17 10:17 03/07/17 09:33 Intake and Output: 03/07/17 03/07/17 11:59 23:59 Intake Total 200 Balance 200 - Medications Medications: Current Medications Alprazolam (Xanax) 1 mg PO BID [facility] Atenolol (Tenormin) 50 mg PO BID [facility] Last Admin: 03/07/17 10:16 Dose: 50 mg Clonidine HCl (Catapres) 0.2 mg PO BID [facility] Last Admin: 03/07/17 10:16 Dose: 0.2 mg Clopidogrel Bisulfate (Plavix) 75 mg PO DAILY [facility] Last Admin: 03/07/17 10:16 Dose: 75 mg Diphenhydramine HCl (Benadryl) 25 mg PO Q8 [facility] Stop: 03/08/17 14:01 Last Admin: 03/07/17 05:36 Dose: 25 mg Docusate Sodium (Colace) 100 mg PO BID [facility] Last Admin: 03/07/17 10:16 Dose: 100 mg Famotidine (Pepcid) 20 mg PO HS [facility] Last Admin: 03/06/17 21:27 Dose: 20 mg Furosemide (Lasix) 40 mg PO DAILY [facility] Last Admin: 03/07/17 10:17 Dose: 40 mg Heparin Sodium (Porcine) (Heparin) 5,000 units SC BID [facility] Last Admin: 03/07/17 10:16 Dose: 5,000 units Hydralazine HCl (Apresoline) 50 mg PO BID [facility] Last Admin: 03/06/17 20:03 Dose: 50 mg Tigecycline 50 mg/ Sodium (Chloride) 100 mls @ 100 mls/hr IVPB Q12H [facility] Levothyroxine Sodium (Synthroid) 75 mcg PO DAILY@0630 [facility] Last Admin: 03/07/17 05:36 Dose: 75 mcg Lisinopril (Zestril) 40 mg PO DAILY [facility] Last Admin: 03/07/17 10:16 Dose: 40 mg Methylprednisolone (Solu-Medrol) 40 mg IVP Q6H [facility] Last Admin: 03/07/17 07:58 Dose: 40 mg Mirtazapine (Remeron) 15 mg PO HS [facility] Last Admin: 03/06/17 21:27 Dose: 15 mg Rosuvastatin Calcium (Crestor) 5 mg PO HS [facility] Last Admin: 03/06/17 21:27 Dose: 5 mg Tamsulosin HCl (Flomax) 0.4 mg PO DAILY [facility] Last Admin: 03/07/17 10:16 Dose: 0.4 mg - Labs Labs: 03/07/17 06:08 03/07/17 06:08
--- NOTE | 2017-03-07 20:56 | CP.PCM.PN ---
Subjective - Date & Time of Evaluation Date of Evaluation: 03/07/17 Time of Evaluation: 20:56 - Subjective Subjective: CHIEF COMPLAINTS TODAY : Afebrile c/o facial itching and pruritus Swelling of the face improving slowly. ROS. HEENT : PAIN ON L. MAXILLARY BONE /cheek Resp : No cough, wheezing ,pleuritic CP ,or hemoptysis Cardio : No anginal CP, PND, orthopnea, palpitation GI : No abd.pain, n/v ,diarrhea or GI bleeding . 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 Musculoskel : No joint swelling , Derm : No rash Psych : Normal affect. Ext : No swelling ,calf pain PE. Pt. is alert awake in no distress. V.S As noted in the chart Head ,SWELLING OF FACE , BOTH LOWER EYELIDS /AND PERIORAL MUCOSA ARE NOT INVOLVED. Neck : Supple with normal carotids. Lungs: Clear air entry. Heart : S1 & S2 normal with S4. No murmur. Abd : Soft non tender with normal bowel sounds. Neuro : Moves all ext. with no localized deficit. Ext : No edema with intact pulses.Non tender calves Derm : No rashes or decubitus ulcer. LABS/RADIOLOGY: reviewed. blood cultures 03/06/17 -ve to date. Objective - Vital Signs/Intake and Output Vital Signs (last 24 hours): Temp Pulse Resp BP Pulse Ox 97.9 F 66 20 185/94 H 96 03/07/17 15:00 03/07/17 15:00 03/07/17 15:00 03/07/17 15:00 03/07/17 15:00 Intake and Output: 03/07/17 03/08/17 18:59 06:59 Intake Total 700 Balance 700 - Medications Medications: Current Medications Alprazolam (Xanax) 1 mg PO BID [facility] Last Admin: 03/07/17 13:48 Dose: 1 mg Atenolol (Tenormin) 50 mg PO BID [facility] Last Admin: 03/07/17 17:36 Dose: 50 mg Clonidine HCl (Catapres) 0.2 mg PO BID [facility] Last Admin: 03/07/17 17:35 Dose: 0.2 mg Clopidogrel Bisulfate (Plavix) 75 mg PO DAILY [facility] Last Admin: 03/07/17 10:16 Dose: 75 mg Diphenhydramine HCl (Benadryl) 25 mg PO Q8 [facility] Stop: 03/08/17 14:01 Last Admin: 03/07/17 13:59 Dose: 25 mg Docusate Sodium (Colace) 100 mg PO BID [facility] Last Admin: 03/07/17 17:35 Dose: 100 mg Famotidine (Pepcid) 20 mg PO HS [facility] Last Admin: 03/06/17 21:27 Dose: 20 mg Furosemide (Lasix) 40 mg PO DAILY [facility] Last Admin: 03/07/17 10:17 Dose: 40 mg Heparin Sodium (Porcine) (Heparin) 5,000 units SC BID [facility] Last Admin: 03/07/17 17:36 Dose: 5,000 units Hydralazine HCl (Apresoline) 50 mg PO BID [facility] Last Admin: 03/07/17 17:35 Dose: 50 mg Tigecycline 50 mg/ Sodium (Chloride) 100 mls @ 100 mls/hr IVPB Q12H [facility] Levothyroxine Sodium (Synthroid) 75 mcg PO DAILY@0630 [facility] Last Admin: 03/07/17 05:36 Dose: 75 mcg Lisinopril (Zestril) 40 mg PO DAILY [facility] Last Admin: 03/07/17 10:16 Dose: 40 mg Methylprednisolone (Solu-Medrol) 40 mg IVP Q6H [facility] Last Admin: 03/07/17 19:25 Dose: 40 mg Mirtazapine (Remeron) 15 mg PO [facility] Last Admin: 03/06/17 21:27 Dose: 15 mg Rosuvastatin Calcium (Crestor) 5 mg PO [facility] Last Admin: 03/06/17 21:27 Dose: 5 mg Tamsulosin HCl (Flomax) 0.4 mg PO DAILY [facility] Last Admin: 03/07/17 10:16 Dose: 0.4 mg - Labs Labs: 03/07/17 06:08 03/07/17 06:08 Assessment and Plan (1) Cellulitis Status: Acute (2) Allergic reaction caused by a drug Status: Acute (3) Dementia Status: Acute (4) Skin irritation Status: Acute - Assessment and Plan (Free Text) Plan: on iv TYGACIL 100 MG LOADING DOSE FOLLOWED BY 50 MG EVERY 12 HOURLY.03/06/19. PATIENT HAS TOLERATED iv tYGACIL IN THE PAST.PATIENT HAS MANY ALLERGIES PER NOTES. BENADRYL WHEN NECESSARY PER PMD. PATIENT UNABLE TO GIVE THE NAME OF THE CREAM WHICH SHE USED ON HER FACE. patient also on IV Solu-Medrol 40 mg every 6 hourly as per attending. Discussed with patient not to use the same cream again and again.
[2017-03-08] MEDS: MethylPREDNISolone 40 mg Vial IVP SCH ×5 (01:24→19:22)
[2017-03-08] MEDS: Levothyroxine 75 MCG TAB PO SCH (06:36)
--- NOTE | 2017-03-08 14:10 | CP.PCM.PN ---
Subjective - Date & Time of Evaluation Date of Evaluation: 03/08/17 Time of Evaluation: 14:10 - Subjective Subjective: CHIEF COMPLAINTS TODAY : FACIAL PAIN AND SWELLING DECREASING ROS. HEENT : PAIN ON L. MAXILLARY BONE Resp : No cough, wheezing ,pleuritic CP ,or hemoptysis Cardio : No anginal CP, PND, orthopnea, palpitation GI : No abd.pain, n/v ,diarrhea or GI bleeding . 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 Musculoskel : No joint swelling , Derm : No rash Psych : Normal affect. Ext : No swelling ,calf pain PE. Pt. is alert awake in no distress. V.S As noted in the chart Head ,SWELLING OF FACE MORE PROMINENT LEFT MAXILLARY SINUS AND BOTH LOWER EYELIDS Neck : Supple with normal carotids. Lungs: Clear air entry. Heart : S1 & S2 normal with S4. No murmur. Abd : Soft non tender with normal bowel sounds. Neuro : Moves all ext. with no localized deficit. Ext : No edema with intact pulses.Non tender calves Derm : No rashes or decubitus ulcer. LABS/RADIOLOGY: ASSESSMENT/PLAN : IV AB/STEROIDS TAPER DOWN Objective - Vital Signs/Intake and Output Vital Signs (last 24 hours): Temp Pulse Resp BP Pulse Ox 97.3 F L 62 20 175/89 H 97 03/08/17 08:50 03/08/17 08:50 03/08/17 08:50 03/08/17 09:40 03/08/17 09:00 Intake and Output: 03/08/17 03/08/17 11:59 23:59 Intake Total 240 Balance 240 - Medications Medications: Current Medications Alprazolam (Xanax) 1 mg PO BID [facility] Last Admin: 03/08/17 09:40 Dose: 1 mg Atenolol (Tenormin) 50 mg PO BID [facility] Last Admin: 03/08/17 09:40 Dose: 50 mg Clonidine HCl (Catapres) 0.2 mg PO BID [facility] Last Admin: 03/08/17 09:32 Dose: 0.2 mg Clopidogrel Bisulfate (Plavix) 75 mg PO DAILY [facility] Last Admin: 03/08/17 09:31 Dose: 75 mg Docusate Sodium (Colace) 100 mg PO BID [facility] Last Admin: 03/08/17 09:32 Dose: 100 mg Famotidine (Pepcid) 20 mg PO [facility] Last Admin: 03/07/17 21:02 Dose: 20 mg Furosemide (Lasix) 40 mg PO DAILY [facility] Last Admin: 03/08/17 09:40 Dose: 40 mg Heparin Sodium (Porcine) (Heparin) 5,000 units SC BID [facility] Last Admin: 03/08/17 09:40 Dose: 5,000 units Hydralazine HCl (Apresoline) 50 mg PO BID [facility] Last Admin: 03/08/17 09:40 Dose: 50 mg Tigecycline 50 mg/ Sodium (Chloride) 100 mls @ 100 mls/hr IVPB Q12H [facility] Last Admin: 03/08/17 10:13 Dose: 100 mls/hr Levothyroxine Sodium (Synthroid) 75 mcg PO DAILY@0630 [facility] Last Admin: 03/08/17 06:36 Dose: 75 mcg Lisinopril (Zestril) 40 mg PO DAILY [facility] Last Admin: 03/08/17 09:40 Dose: 40 mg Methylprednisolone (Solu-Medrol) 20 mg IVP Q6H [facility] Mirtazapine (Remeron) 15 mg PO HS [facility] Last Admin: 03/07/17 21:01 Dose: 15 mg Rosuvastatin Calcium (Crestor) 5 mg PO HS [facility] Last Admin: 03/07/17 21:01 Dose: 5 mg Tamsulosin HCl (Flomax) 0.4 mg PO DAILY [facility] Last Admin: 03/08/17 09:31 Dose: 0.4 mg - Labs Labs: 03/07/17 06:08 03/07/17 06:08
[2017-03-09] MEDS: MethylPREDNISolone 40 mg Vial IVP SCH ×2 (02:50→07:51)
[2017-03-09] MEDS: Levothyroxine 75 MCG TAB PO SCH (06:40)
--- NOTE | 2017-03-09 13:17 | CP.PCM.PN ---
Subjective - Date & Time of Evaluation Date of Evaluation: 03/09/17 Time of Evaluation: 13:17 - Subjective Subjective: CHIEF COMPLAINTS TODAY : Afebrile LESS FACIAL SWELLING AND ITCHING ROS. HEENT : FACIAL PAIN AND SWELLING IMPROVING Resp : No cough, wheezing ,pleuritic CP ,or hemoptysis Cardio : No anginal CP, PND, orthopnea, palpitation GI : No abd.pain, n/v ,diarrhea or GI bleeding . 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 Musculoskel : No joint swelling , Derm : No rash Psych : Normal affect. Ext : No swelling ,calf pain PE. Pt. is alert awake in no distress. V.S As noted in the chart Head ,SWELLING OF FACE , BOTH LOWER EYELIDS /AND PERIORAL IMPROVING MUCOSA ARE NOT INVOLVED. Neck : Supple with normal carotids. Lungs: Clear air entry. Heart : S1 & S2 normal with S4. No murmur. Abd : Soft non tender with normal bowel sounds. Neuro : Moves all ext. with no localized deficit. Ext : No edema with intact pulses.Non tender calves Derm : No rashes or decubitus ulcer. LABS/RADIOLOGY: reviewed. blood cultures 03/06/17 -ve to date. Objective - Vital Signs/Intake and Output Vital Signs (last 24 hours): Temp Pulse Resp BP Pulse Ox 97.7 F 62 20 155/86 H 96 03/09/17 00:00 03/09/17 00:00 03/09/17 00:00 03/09/17 09:01 03/09/17 00:00 Intake and Output: 03/09/17 03/09/17 06:59 18:59 Intake Total 200 Balance 200 - Medications Medications: Current Medications Alprazolam (Xanax) 1 mg PO BID [facility] Last Admin: 03/09/17 09:00 Dose: 1 mg Atenolol (Tenormin) 50 mg PO BID [facility] Last Admin: 03/09/17 09:00 Dose: 50 mg Clonidine HCl (Catapres) 0.2 mg PO BID [facility] Last Admin: 03/09/17 09:00 Dose: 0.2 mg Clopidogrel Bisulfate (Plavix) 75 mg PO DAILY [facility] Last Admin: 03/09/17 09:00 Dose: 75 mg Docusate Sodium (Colace) 100 mg PO BID [facility] Last Admin: 03/09/17 09:00 Dose: 100 mg Famotidine (Pepcid) 20 mg PO DAILY [facility] Last Admin: 03/09/17 09:48 Dose: 20 mg Furosemide (Lasix) 40 mg PO DAILY [facility] Last Admin: 03/09/17 09:01 Dose: 40 mg Heparin Sodium (Porcine) (Heparin) 5,000 units SC BID [facility] Last Admin: 03/09/17 09:00 Dose: 5,000 units Hydralazine HCl (Apresoline) 50 mg PO BID [facility] Last Admin: 03/09/17 09:01 Dose: 50 mg Tigecycline 50 mg/ Sodium (Chloride) 100 mls @ 100 mls/hr IVPB Q12H [facility] Last Admin: 03/09/17 11:40 Dose: 100 mls/hr Levothyroxine Sodium (Synthroid) 75 mcg PO DAILY@0630 [facility] Last Admin: 03/09/17 06:40 Dose: 75 mcg Lisinopril (Zestril) 40 mg PO DAILY [facility] Last Admin: 03/09/17 09:00 Dose: 40 mg Methylprednisolone (Solu-Medrol) 20 mg IVP Q6H [facility] Last Admin: 03/09/17 07:51 Dose: 20 mg Mirtazapine (Remeron) 15 mg PO HS [facility] Last Admin: 03/08/17 21:01 Dose: 15 mg Rosuvastatin Calcium (Crestor) 5 mg PO HS [facility] Last Admin: 03/08/17 21:00 Dose: 5 mg Tamsulosin HCl (Flomax) 0.4 mg PO DAILY [facility] Last Admin: 03/09/17 09:00 Dose: 0.4 mg - Labs Labs: 03/07/17 06:08 03/07/17 06:08 Assessment and Plan (1) Cellulitis Assessment & Plan: PATIENT PRESENTLY ON iv tYGACIL. dc tYGACIL sTART BY MOUTH bACTRIM ONE DOUBLE STRENGTH TWICE A DAY FOR 5 DAYS. pATIENT HAS TOLERATED bACTRIM BY MOUTH IN THE PAST. mEDROL Nikki PER ATTENDING. pATIENT STABLE TO BE DISCHARGED AND FOLLOW-UP OUTPATIENT. CASE DISCUSSED WITH BUSINESS SUPPORT MS REYES. Status: Acute (2) Allergic reaction caused by a drug Assessment & Plan: PATIENT HAS AN ALLERGIC REACTION TO SOME TOPICAL CREAM WHICH PATIENT UNABLE TO EXPLAIN OR DELIVER. dISCUSSED WITH PATIENT NOT TO USE ANY CREAMS ON FACE. Status: Acute (3) Dementia Status: Acute (4) Skin irritation Status: Acute
--- NOTE | 2017-03-09 13:39 | CP.PCM.DIS ---
Provider - Provider Date of Admission: 03/06/17 16:33 Attending physician: Jayshree Aiken MD Time Spent in preparation of Discharge (in minutes): 30 Hospital Course - Lab Results Lab Results: Most Recent Lab Values WBC 14.7 K/uL (4.8-10.8) H 03/07/17 06:08 RBC 4.95 Mil/uL (3.80-5.20) 03/07/17 06:08 Hgb 14.8 g/dL (11.0-16.0) 03/07/17 06:08 Hct 45.0 % (34.0-47.0) 03/07/17 06:08 MCV 90.9 fL (81.0-99.0) 03/07/17 06:08 MCH 29.8 pg (27.0-31.0) 03/07/17 06:08 MCHC 32.8 g/dL (33.0-37.0) L 03/07/17 06:08 RDW 16.8 % (11.5-14.5) H 03/07/17 06:08 Plt Count 131 K/uL (130-400) 03/07/17 06:08 MPV 9.4 fL (7.2-11.7) 03/07/17 06:08 Neut % (Auto) 34.1 % (50.0-75.0) L 03/07/17 06:08 Lymph % (Auto) 64.7 % (20.0-40.0) H 03/07/17 06:08 [place] % (Auto) 0.5 % (0.0-10.0) 03/07/17 06:08 Eos % (Auto) 0.0 % (0.0-4.0) 03/07/17 06:08 Baso % (Auto) 0.7 % (0.0-2.0) 03/07/17 06:08 Neut # 5.0 K/uL (1.8-7.0) 03/07/17 06:08 Lymph # 9.5 K/uL (1.0-4.3) H 03/07/17 06:08 [place] # 0.1 K/uL (0.0-0.8) 03/07/17 06:08 Eos # 0.0 K/uL (0.0-0.7) 03/07/17 06:08 Baso # 0.1 K/uL (0.0-0.2) 03/07/17 06:08 Neutrophils % (Manual) 17 % (50-75) L 03/06/17 13:52 Lymphocytes % (Manual) 79 % (20-40) H 03/06/17 13:52 Reactive Lymphs % 2 % (0-0) H 03/06/17 13:52 Monocytes % (Manual) 1 % (0-10) 03/06/17 13:52 Eosinophils % (Manual) 1 % (0-4) 03/06/17 13:52 Platelet Estimate Slightly decreased (NORMAL) L 03/06/17 13:52 Anisocytosis (manual) Slight 03/06/17 13:52 ESR 4 mm/hr (0-20) 03/07/17 06:08 Sodium 139 mmol/L (132-148) 03/07/17 06:08 Potassium 3.9 mmol/L (3.6-5.2) 03/07/17 06:08 Chloride 105 mmol/L (98-107) 03/07/17 06:08 Carbon Dioxide 26 mmol/L (22-30) 03/07/17 06:08 Anion Gap 13 (10-20) 03/07/17 06:08 BUN 26 mg/dL (7-17) H 03/07/17 06:08 Creatinine 0.9 MG/DL (0.7-1.2) 03/07/17 06:08 Est GFR ( Amer) > 60 03/07/17 06:08 Est GFR (Non-Af Amer) > 60 03/07/17 06:08 Random Glucose 154 mg/dL (65-105) H 03/07/17 06:08 Calcium 9.1 mg/dl (8.6-10.4) 03/07/17 06:08 Total Bilirubin 0.3 mg/dL (0.2-1.3) 03/07/17 06:08 AST 32 U/L (14-36) 03/07/17 06:08 ALT 33 U/L (9-52) 03/07/17 06:08 Alkaline Phosphatase 94 U/L (38-126) 03/07/17 06:08 C-React Prot High Sens 1.46 mg/L (1.00-3.00) 03/07/17 06:08 Total Protein 6.1 g/dL (6.3-8.3) L 03/07/17 06:08 Albumin 3.6 g/dL (3.5-5.0) 03/07/17 06:08 Globulin 2.5 gm/dL (2.2-3.9) 03/07/17 06:08 Albumin/Globulin Ratio 1.4 (1.0-2.1) 03/07/17 06:08 Urine Color Straw (YELLOW) 03/06/17 13:42 Urine Clarity Clear (Clear) 03/06/17 13:42 Urine pH 6.0 (5.0-8.0) 03/06/17 13:42 Ur Specific [place] 1.004 (1.003-1.030) 03/06/17 13:42 Urine Protein Negative mg/dL (NEGATIVE) 03/06/17 13:42 Urine Glucose (UA) Normal mg/dL (Normal) 03/06/17 13:42 Urine Ketones Negative mg/dL (NEGATIVE) 03/06/17 13:42 Urine Blood Negative (NEGATIVE) 03/06/17 13:42 Urine Nitrate Negative (NEGATIVE) 03/06/17 13:42 Urine Bilirubin Negative (NEGATIVE) 03/06/17 13:42 Urine Urobilinogen Normal mg/dL (0.2-1.0) 03/06/17 13:42 Ur Leukocyte Esterase Neg Benji/uL (Negative) 03/06/17 13:42 Urine WBC (Auto) < 1 /hpf (0-5) 03/06/17 13:42 Urine RBC (Auto) < 1 /hpf (0-3) 03/06/17 13:42 Ur Squamous Epith Cells 1 /hpf (0-5) 03/06/17 13:42 - Hospital Course Hospital Course: 1 years old woman presented to [facility]. with swelling of the face. Patient is a poor historian and cannot recall exactly what local cream application. She applied but apparently she woke up in the morning with swelling of the face with slight difficulty in breathing and also visual discomfort. In the ER patient was found to have subcutis swelling on the face. Patient recently had a similar episode a month ago was admitted in the hospital with possible cellulitis and allergic reaction to local application of some ointment. Patient has multiple allergies to drugs and food. IV AB/STEROIDS WERE GIVEN WITH BENADRYL AND SWELLING SUBSIDED PT IMPROVED WITH NEG SEPTIC W/U Discharge Exam - Head Exam Head Exam: NORMAL INSPECTION Discharge Plan - Follow Up Plan Condition: FAIR Disposition: HOME/ ROUTINE
[2017-03-09 16:22] VITALS: BP 167/88; PULSE 68; TEMP 98.2; O2SAT 97
== END 2017-03-09 17:30 | disposition home or self-care (01) | DRG 603 ==
LOC: C.ER 11:16 → C.3T 16:33
PROVIDERS: ADMIT Internal Medicine Cardiovascular Disease; ATTEND Internal Medicine Cardiovascular Disease
DX: L03.211 Cellulitis of face (principal); L50.6 Contact urticaria; T49.95XA Adverse effect of unspecified topical agent, initial encounter; J44.9 Chronic obstructive pulmonary disease, unspecified; I25.10 Atherosclerotic heart disease of native coronary artery without angina pectoris; I10 Essential (primary) hypertension; G30.9 Alzheimer's disease, unspecified; F02.80 Dementia in other diseases classified elsewhere, unspecified severity, without behavioral disturbance, psychotic disturbance, mood disturbance, and anxiety; E03.9 Hypothyroidism, unspecified; E78.00 Pure hypercholesterolemia, unspecified; F31.9 Bipolar disorder, unspecified; G47.30 Sleep apnea, unspecified; H91.92 Unspecified hearing loss, left ear; M81.0 Age-related osteoporosis without current pathological fracture; Z86.73 Personal history of transient ischemic attack (TIA), and cerebral infarction without residual deficits; Z87.891 Personal history of nicotine dependence; Z90.49 Acquired absence of other specified parts of digestive tract

== ENCOUNTER 2018-07-28 16:21 | Inpatient (IN) | payer MEDICARE, MEDICAID ==
[2018-07-28 16:22] VITALS: BMI 29.0
--- NOTE | 2018-07-28 17:23 | C.PDOC ---
History Of Present Illness 82 y/o female, with PMHx of hypertension, coronary artery disease, and stroke, comes in complaining of several months worth of fatigue and generalized weakness. 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 Patient has been eating and drinking and is able to get up and move around. Patient can walk but slowly, since she states she has less energy now. Patient also complains of swelling in both of her legs that is chronic and improves when elevated, as well as some abdominal pain. States she spends most of her time sitting on a chair and denies any chest pain or SOB. Patient reports she has history of constipation and takes stool softeners. Time Seen by Provider: 07/28/18 16:42 Chief Complaint (Nursing): Weakness/Neurological Deficit History Per: Patient History/Exam Limitations: no limitations Onset/Duration Of Symptoms: Days Current Symptoms Are (Timing): Still Present Past Medical History Reviewed: Historical Data, Nursing Documentation, Vital Signs Vital Signs: Last Vital Signs Temp 97.8 F 07/28/18 16:45 Pulse 64 07/28/18 16:45 Resp 16 07/28/18 16:45 BP 142/83 07/28/18 16:45 Pulse Ox 94 L 07/28/18 16:45 - Medical History PMH: Alzheimer's Disease (Mild dementia and confusion noted), Anxiety, Arthritis (b/l knees and ankles), Asthma, Back Problems (scaitica), Bipolar Disorder (Patient used to take multiple medications, being seen by a psychiatrist), CAD, Cardia Arrhythmia (palpitation), COPD, CVA, Dementia, Diverticulitis, Gastritis, HTN, Hypercholesterolemia, Hypothyroidism, Osteoporosis, Sleep Apnea ("in the past") Denies: Chronic Kidney Disease Surgical History: Appendectomy, Cholecystectomy, - [facility] Procedures COLONOSCOPY (03/28/15) INJECT/INFUSE NEC (01/01/14) OCCUPATIONAL THERAPY (05/13/13) PHYSICAL THERAPY NEC (05/13/13) Family History: States: No Known Family Hx - Social History Hx Tobacco Use: No Hx Alcohol Use: No Hx Substance Use: No - Immunization History Hx Tetanus Toxoid Vaccination: Yes Hx Influenza Vaccination: Yes Hx Pneumococcal Vaccination: No Review Of Systems Constitutional: Positive for: Weakness (generalized), Other (Fatigue). Negative for: Fever Cardiovascular: Negative for: Chest Pain Respiratory: Negative for: Shortness of Breath Gastrointestinal: Positive for: Abdominal Pain. Negative for: Vomiting Genitourinary: Negative for: Dysuria Musculoskeletal: Positive for: Other (Swelling of bilateral legs) Skin: Negative for: Rash Physical Exam - Physical Exam Appears: Non-toxic, No Acute Distress Skin: Warm, Dry Head: Atraumatic, Normacephalic Eye(s): bilateral: Normal Inspection, PERRL, EOMI Oral Mucosa: Moist Neck: Supple Chest: Symmetrical Cardiovascular: Rhythm Regular, No Murmur Respiratory: Normal Breath Sounds, No Rales, No Rhonchi, No Wheezing Gastrointestinal/Abdominal: Soft, No Tenderness Extremity: Other (mild nonpitting edema on both lower legs) Neurological/Psych: Oriented x3, Normal Speech ED Course And Treatment - Laboratory Results Result Diagrams: 07/28/18 18:12 07/28/18 18:12 Lab Interpretation: Abnormal (WBC 20.5 with lymphocytic shift, BUN 35, Cr 1.4) O2 Sat by Pulse Oximetry: 94 (RA) Pulse Ox Interpretation: Abnormal - Radiology CXR: Interpreted by [facility] CXR Interpretation: Yes: No Acute Disease (unchanged since 02/2017) - Physician Consult Information Time Consulting Physician Contacted: 20:12 Physician Contacted: Jayshree Aiken Outcome Of Conversation: Patient to be admitted for evaluation of new lymphocytosis. Medical Decision Making Medical Decision Making: Plan: --Bloodwork --UA Disposition - Disposition Disposition: HOSPITALIZED Disposition Time: 20:17 Condition: STABLE Instructions: Weakness (ED) - POA Present On Arrival: None - Clinical Impression Clinical Impression: Generalized weakness, Lymphocytosis - Scribe Statement The provider has reviewed the documentation as recorded by the Oksana Arthur Provider Attestation: All medical record entries made by the Oksana were at my direction and personally dictated by me. I have reviewed the chart and agree that the record accurately reflects my personal performance of the history, physical exam, medical decision making, and the department course for this patient. I have also personally directed, reviewed, and agree with the discharge instructions and disposition.
[2018-07-28 18:24] LABS: BASO # 0.1 K/uL (0.0-0.2); BASO % 0.5 % (0.0-2.0); EOS # 0.5 K/uL (0.0-0.7); EOS % 2.6 % (0.0-4.0); HEMOGLOBIN 14.8 g/dL (11.0-16.0); LYMPH # 15.4 K/uL (1.0-4.3); LYMPH % 75.4 % (20.0-40.0); MEAN CELL VOLUME 93.9 fL (81.0-99.0); MEAN CORPUSCULAR HEMOGLOBIN 30.1 pg (27.0-31.0); MEAN PLATELET VOLUME 9.1 fL (7.2-11.7); MONO # 0.7 K/uL (0.0-0.8); MONO % 3.5 % (0.0-10.0); NEUT # 3.7 K/uL (1.8-7.0); NRBC % 0.1 % (0.0-2.0); PLATELET COUNT 159 K/uL (130-400); RBC 4.93 Mil/uL (3.80-5.20); RED CELL DISTRIBUTION WIDTH 16.4 % (11.5-14.5); WHITE BLOOD COUNT 20.5 K/uL (4.8-10.8)
[2018-07-28 18:36] LABS: SQUAMOUS EPITHIAL 1 /hpf (0-5); URINE BACTERIA FEW (<OCC); URINE BILIRUBIN NEGATIVE (NEGATIVE); URINE BLOOD NEGATIVE (NEGATIVE); URINE CLARITY Clear (Clear); URINE COLOR Straw (YELLOW); URINE GLUCOSE (UA) NORMAL (Normal); URINE PROTEIN NEGATIVE (NEGATIVE); URINE UROBILINOGEN NORMAL mg/dL (0.2-1.0)
[2018-07-28 18:48] LABS: ALB/GLOB RATIO 1.7 (1.0-2.1); ALBUMIN 4.6 g/dL (3.5-5.0); CALCIUM 9.2 mg/dl (8.6-10.4)
[2018-07-28 18:50] LABS: URINE LEUKOCYTE ESTERASE 2+ Leu/uL (Negative)
[2018-07-28] MEDS ORDERED: Sodium Chloride 0.9% 1,000 ML IV ONE (19:02)
--- NOTE | 2018-07-28 20:04 | CP.PCM.HP ---
History of Present Illness - History of Present Illness History of Present Illness: 82 y/o female, with PMHx of hypertension, coronary artery disease,vertigo and stroke, comes in complaining of several days of fatigue and generalized weakness. 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 Patient also complains of swelling in both of her legs that is chronic and improves when elevated, as well as some abdominal pain. States she spends most of her time sitting on a chair and denies any chest pain or SOB. Patient reports she has history of constipation and takes stool softeners. Present on Admission - Present on Admission Any Indicators Present on Admission: No Review of Systems - Review of Systems All systems: reviewed and no additional remarkable complaints except (generalized weakness, swelling of the legs, and increased drowsines) Past Patient History - Infectious Disease Hx of Infectious Diseases: None - Tetanus Immunizations Tetanus Immunization: Up to Date - Past Medical History & Family History Past Medical History?: Yes - Past Social History Smoking Status: Never Smoked - CARDIAC Hx Cardia Arrhythmia: Yes (palpitation) Hx Hypercholesterolemia: Yes Hx Hypertension: Yes - PULMONARY Hx Asthma: Yes Hx Chronic Obstructive Pulmonary Disease (COPD): Yes Hx Sleep Apnea: Yes ("in the past") - NEUROLOGICAL Hx Alzheimer's Disease: Yes (Mild dementia and confusion noted) Hx Dementia: Yes - HEENT Hx HEENT Problems: Yes Hx Deafness: Yes (LEFT EAR) - RENAL Hx Chronic Kidney Disease: No - ENDOCRINE/METABOLIC Hx Hypothyroidism: Yes - INTEGUMENTARY Hx Dermatological Problems: Yes Hx Basil Cell: Yes (FACE, ARMS) - MUSCULOSKELETAL/RHEUMATOLOGICAL Hx Arthritis: Yes (b/l knees and ankles) Hx Osteoporosis: Yes - GASTROINTESTINAL Hx Diverticulitis: Yes Hx Gastritis: Yes - GENITOURINARY/GYNECOLOGICAL Hx Genitourinary Disorders: Yes Hx Incontinence: Yes - PSYCHIATRIC Hx Anxiety: Yes Hx Bipolar Disorder: Yes (Patient used to take multiple medications, being seen by a psychiatrist) Hx Substance Use: No - SURGICAL HISTORY Hx Appendectomy: Yes Hx Cholecystectomy: Yes - ANESTHESIA Hx Anesthesia: Yes Hx Anesthesia Reactions: No Hx Malignant Hyperthermia: No Meds Allergies/Adverse Reactions: Allergies Allergy/AdvReac Type Severity Reaction Status Date / Time Carbapenems Allergy Intermediate Unverified 07/28/18 17:01 Cephalosporins Allergy Intermediate Unverified 07/28/18 17:04 aztreonam Allergy Mild Unverified 07/28/18 17:04 aspirin Allergy Verified 07/28/18 17:01 ciprofloxacin [From Cipro] Allergy Unverified 07/28/18 17:04 ciprofloxacin HCl Allergy Unverified 07/28/18 17:04 [From Cipro] Penicillins Allergy Verified 07/28/18 17:01 Physical Exam - Head Exam Head Exam: ATRAUMATIC - Eye Exam Eye Exam: EOMI, Normal appearance, PERRL Pupil Exam: NORMAL ACCOMODATION, PERRL - ENT Exam ENT Exam: Mucous Membranes Moist, Normal Exam - Neck Exam Neck exam: Positive for: Normal Inspection - Respiratory Exam Respiratory Exam: Rhonchi, NORMAL BREATHING PATTERN - Cardiovascular Exam Cardiovascular Exam: REGULAR RHYTHM - GI/Abdominal Exam GI & Abdominal Exam: Normal Bowel Sounds, Soft. absent: Tenderness - Rectal Exam Rectal Exam: Deferred - Extremities Exam Extremities exam: Positive for: pedal edema. Negative for: calf tenderness, tenderness - Back Exam Back exam: CVA tenderness (L), CVA tenderness (R) - Neurological Exam Neurological exam: Abnormal Gait, CN II-XII Intact, Oriented x3 Results - Vital Signs Recent Vital Signs: Last Vital Signs Temp 97.8 F 07/28/18 16:45 Pulse 64 07/28/18 16:45 Resp 16 07/28/18 16:45 BP 142/83 07/28/18 16:45 Pulse Ox 94 L 07/28/18 17:28 - Labs Result Diagrams: 07/29/18 08:31 07/29/18 08:31 Labs: Laboratory Results - last 24 hr 07/28/18 07/28/18 07/28/18 18:12 18:12 18:12 WBC 20.5 H RBC 4.93 Hgb 14.8 Hct 46.2 MCV 93.9 D MCH 30.1 MCHC 32.0 L RDW 16.4 H Plt Count 159 MPV 9.1 Neut % (Auto) 18.0 L Lymph % (Auto) 75.4 H [place] % (Auto) 3.5 Eos % (Auto) 2.6 Baso % (Auto) 0.5 Neut # (Auto) 3.7 Lymph # (Auto) 15.4 H [place] # (Auto) 0.7 Eos # (Auto) 0.5 Baso # (Auto) 0.1 Sodium 139 Potassium 5.0 Chloride 99 Carbon Dioxide 31 H Anion Gap 13 BUN 35 H Creatinine 1.4 H Est GFR ( Amer) 44 Est GFR (Non-Af Amer) 36 Random Glucose 95 D Calcium 9.2 Magnesium 2.5 H Total Bilirubin 0.5 AST 92 H ALT 50 Alkaline Phosphatase 96 Total Protein 7.3 Albumin 4.6 Globulin 2.7 Albumin/Globulin Ratio 1.7 Lipase 27 Urine Color Straw Urine Clarity Clear Urine pH 6.0 Ur Specific [place] 1.004 Urine Protein Negative Urine Glucose (UA) Normal Urine Ketones Negative Urine Blood Negative Urine Nitrate Negative Urine Bilirubin Negative Urine Urobilinogen Normal Ur Leukocyte Esterase 2+ H Urine WBC (Auto) 16 H Urine RBC (Auto) 3 Ur Squamous Epith Cells 1 Ur Transition Epith Cell 1 Urine Bacteria Few H Assessment & Plan (1) Sepsis Status: Acute (2) Generalized weakness Status: Acute (3) Hypertension Status: Chronic (4) UTI (urinary tract infection) Status: Acute
[2018-07-28 20:08] LABS: ANISOCYTOSIS SLIGHT; EOSINOPHIL 1 % (0-4); LYMPHOCYTE 64 % (20-40); NEUTROPHIL 14 % (50-75); REACTIVE LYMPHOCYTES 21 % (0-0); TOTAL CELLS COUNTED 100
[2018-07-28 20:09] LABS: PLATELET ESTIMATE NORMAL (NORMAL)
[2018-07-28 20:24] LABS: MONOCYTE 0 % (0-10)
[2018-07-28] MEDS ORDERED: ROSUVASTATIN CALCIUM 5 MG PO SCH (22:00)
[2018-07-28] MEDS ORDERED: MIRTAZAPINE 30 MG PO SCH (22:00)
[2018-07-29] MEDS ORDERED: IBUPROFEN 600 MG PO PRN (08:25)
--- NOTE | 2018-07-29 08:32 | RAD ---
Date of service: 07/28/2018 HISTORY: fatigue COMPARISON: Frontal chest radiograph 03/06/2017 as well as 11/21/2016. TECHNIQUE: Chest PA and lateral FINDINGS: LUNGS: No active pulmonary disease. PLEURA: No significant pleural effusion identified. No pneumothorax apparent. CARDIOVASCULAR: Calcific atherosclerotic changes are seen related to the thoracic aorta. Cardiac silhouette appears stable. No definite pulmonary vascular congestion. Apparent accentuation into the right hilar markings is appreciated on the basis of rotation to the right. No pulmonary vascular congestion. OSSEOUS STRUCTURES: No significant abnormalities. VISUALIZED UPPER ABDOMEN: Normal. OTHER FINDINGS: None. IMPRESSION: No definite interval acute cardiopulmonary disease appreciable.
[2018-07-29 08:50] LABS: BASO % 0.3 % (0.0-2.0); EOS # 0.5 K/uL (0.0-0.7); EOS % 3.2 % (0.0-4.0); HEMOGLOBIN 15.5 g/dL (11.0-16.0); LYMPH # 13.2 K/uL (1.0-4.3); LYMPH % 80.6 % (20.0-40.0); MEAN CELL VOLUME 93.9 fL (81.0-99.0); MEAN CORPUSCULAR HEMOGLOBIN 30.7 pg (27.0-31.0); MEAN CORPUSCULAR HGB CONC 32.6 g/dL (33.0-37.0); MEAN PLATELET VOLUME 9.3 fL (7.2-11.7); MONO # 0.5 K/uL (0.0-0.8); MONO % 2.9 % (0.0-10.0); NEUT # 2.1 K/uL (1.8-7.0); NRBC % 0.1 % (0.0-2.0); PLATELET COUNT 159 K/uL (130-400); RBC 5.07 Mil/uL (3.80-5.20); RED CELL DISTRIBUTION WIDTH 16.6 % (11.5-14.5); WHITE BLOOD COUNT 16.4 K/uL (4.8-10.8)
[2018-07-29 08:53] LABS: ALB/GLOB RATIO 1.5 (1.0-2.1); ALBUMIN 4.1 g/dL (3.5-5.0); ALT/SGPT 50 U/L (9-52); AST/SGOT 84 U/L (14-36); BLOOD UREA NITROGEN 24 mg/dL (7-17); CALCIUM 8.8 mg/dl (8.6-10.4); GFR NON-AFRICAN AMERICAN 60
[2018-07-29] MEDS: Multivitamin With Minerals Tab PO SCH ×2 (09:22→17:26)
[2018-07-29] MEDS: ATENOLOL 50 MG PO SCH ×2 (09:22→17:25)
[2018-07-29] MEDS: Potassium Chloride 10 mEq ER Tab PO SCH ×2 (09:31→17:23)
[2018-07-29] MEDS ORDERED: IBUPROFEN 600 MG PO SCH (10:00)
[2018-07-29] MEDS ORDERED: Home Med 1 UNIT (Potassium Chloride [Potassium Chloride] 10 MEQ) PO SCH (10:00)
[2018-07-29 10:41] LABS: EOSINOPHIL 2 % (0-4); LYMPHOCYTE 85 % (20-40); MONOCYTE 1 % (0-10); NEUTROPHIL 12 % (50-75); PLATELET ESTIMATE NORMAL (NORMAL); TOTAL CELLS COUNTED 100
[2018-07-29 10:42] LABS: ANISOCYTOSIS SLIGHT
[2018-07-29 12:49] VITALS: RESP 20
--- NOTE | 2018-07-29 14:27 | CP.PCM.PN ---
Subjective - Date & Time of Evaluation Date of Evaluation: 07/29/18 Time of Evaluation: 14:25 - Subjective Subjective: CHIEF COMPLAINTS TODAY : Generalized weakness and drowsiness ROS. HEENT : N. Resp : No cough, wheezing ,pleuritic CP ,or hemoptysis Cardio : No anginal CP, PND, orthopnea, palpitation GI : No abd.pain, n/v ,diarrhea or GI bleeding . 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 Musculoskel : No joint swelling , Derm : No rash Psych : Normal affect. Ext : No swelling ,calf pain PE. Pt. is alert awake in no distress. V.S As noted in the chart Head ,ear nose,throat and eyes : Normal. Neck : Supple with normal carotids. Lungs: Clear air entry. Heart : S1 & S2 normal with S4. No murmur. Abd : Soft non tender with normal bowel sounds. Neuro : Moves all ext. with no localized deficit. Ext : pos edema with intact pulses.Non tender calves Derm : No rashes or decubitus ulcer. LABS/RADIOLOGY: ASSESSMENT/PLAN : CT of the abdomen Continue IV antibiotics and blood pressure monitoring Objective - Vital Signs/Intake and Output Vital Signs (last 24 hours): Temp Pulse Resp BP Pulse Ox 97.9 F 77 20 172/84 H 96 07/29/18 08:00 07/29/18 08:00 07/29/18 08:00 07/29/18 08:00 07/29/18 08:00 Intake and Output: 07/29/18 07/29/18 11:59 23:59 Intake Total 580 Balance 580 - Medications Medications: Current Medications Alprazolam (Xanax) 1 mg PO HS [facility] Last Admin: 07/29/18 00:30 Dose: Not Given Atenolol (Tenormin) 50 mg PO BID [facility] Last Admin: 07/29/18 09:22 Dose: 50 mg Clonidine HCl (Catapres) 0.2 mg PO BID [facility] Last Admin: 07/29/18 09:22 Dose: 0.2 mg Clopidogrel Bisulfate (Plavix) 75 mg PO DAILY [facility] Last Admin: 07/29/18 09:22 Dose: 75 mg Docusate Sodium (Colace) 100 mg PO BID [facility] Last Admin: 07/29/18 09:22 Dose: 100 mg Famotidine (Pepcid) 20 mg PO DAILY [facility] Last Admin: 07/29/18 09:22 Dose: 20 mg Heparin Sodium (Porcine) (Heparin) 5,000 units SC Q12 [facility] Last Admin: 07/29/18 09:22 Dose: 5,000 units Home Med (Ibuprofen [Motrin Tab]) 600 mg PO BID PRN PRN Reason: Pain, moderate (4-7) Hydralazine HCl (Apresoline) 50 mg PO BID [facility] Last Admin: 07/29/18 09:22 Dose: 50 mg Doxycycline Hyclate 100 mg/ (Sodium Chloride) 100 mls @ 100 mls/hr IVPB Q12H [facility]; Protocol Last Admin: 07/29/18 12:57 Dose: 100 mls/hr Levothyroxine Sodium (Synthroid) 75 mcg PO DAILY@0630 [facility] Lisinopril (Zestril) 40 mg PO DAILY [facility] Last Admin: 07/29/18 09:22 Dose: 40 mg Mirtazapine (Remeron) 30 mg PO [facility] Multivitamins/Minerals (Therapeutic-M Tab) 1 tab PO BID [facility] Last Admin: 07/29/18 09:22 Dose: 1 tab Pneumococcal Polyvalent Vaccine (Pneumovax 23 Vaccine) 0.5 ml IM .ONCE ONE Stop: 07/31/18 10:01 Potassium Chloride (Klor-Con 10) 10 meq PO BID [facility] Last Admin: 07/29/18 09:31 Dose: 10 meq Rosuvastatin Calcium (Crestor) 5 mg PO HS [facility] - Labs Labs: 07/29/18 08:31 07/29/18 08:31 Assessment and Plan (1) Sepsis Status: Acute (2) Generalized weakness Status: Acute (3) Hypertension Status: Chronic (4) UTI (urinary tract infection) Status: Acute
--- NOTE | 2018-07-29 14:38 | CP.PCM.CON ---
History of Present Illness - History of Present Illness History of Present Illness: INFECTIOUS DISEASE CONSULT; HPI; 82 y/o female, with PMHx of hypertension, coronary artery disease, and stroke, comes in complaining of several months worth of fatigue and generalized weakness. 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 Patient has been eating and drinking and is able to get up and move around. Patient can walk but slowly, since she states she has less energy now. Patient also complains of swelling in both of her legs that is chronic and improves when elevated, as well as some abdominal pain.Patient complains of frequency but denies any dysuria or hematuria. States she spends most of her time sitting on a chair and denies any chest pain or SOB. Patient reports she has history of constipation and takes stool softeners. INFECTIOUS DISEASE CONSULT REQUESTED BY PMD FOR INCREASING LEUKOCYTOSIS/? SEPSIS. PATIENT HAS MANY ALLERGIES-WITH, CARBAPENEMS, CEPHALOSPORINS, AZTREONAM, cIPRO, ASPIRIN AND MORE. PT. HAS TOLERATED BACTRIM , IV TYGACIL IN PAST AFTER REVIEWING OLD RECORDS. PATIENT UNABLE TO GIVE MUCH DETAILS ABOUT HER HISTORY. 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 absent: Chills, Fever - EENT Eyes: absent: Change in Vision Ears: Abnormal Hearing (LT EAR DEAFNESS. DECREASED HEARING. ) Nose/Mouth/Throat: absent: Mouth Lesions - Cardiovascular Cardiovascular: Leg Edema. absent: Chest Pain - Respiratory Respiratory: absent: Cough, Dyspnea - Gastrointestinal Gastrointestinal: Abdominal Pain (lower abdominal pain), Constipation (chronic.). absent: Nausea, Vomiting - Genitourinary Genitourinary: Urinary Frequency - Musculoskeletal Musculoskeletal: As Per HPI - Neurological Neurological: As Per HPI, Abnormal Hearing, Disequilibrium - Psychiatric Psychiatric: Confusion, Depression, Memory Loss - Hematologic/Lymphatic Hematologic: absent: Easy Bleeding, Lymphadenopathy Past Patient History - Infectious Disease Hx of Infectious Diseases: None - Tetanus Immunizations Tetanus Immunization: Up to Date - Past Medical History & Family History Past Medical History?: Yes - Past Social History Smoking Status: Never Smoked - CARDIAC Hx Cardia Arrhythmia: Yes (palpitation) Hx Hypercholesterolemia: Yes Hx Hypertension: Yes - PULMONARY Hx Asthma: Yes Hx Chronic Obstructive Pulmonary Disease (COPD): Yes Hx Sleep Apnea: Yes ("in the past") - NEUROLOGICAL Hx Alzheimer's Disease: Yes (Mild dementia and confusion noted) Hx Dementia: Yes - HEENT Hx HEENT Problems: Yes Hx Deafness: Yes (LEFT EAR) - RENAL Hx Chronic Kidney Disease: No - ENDOCRINE/METABOLIC Hx Hypothyroidism: Yes - INTEGUMENTARY Hx Dermatological Problems: Yes Hx Basil Cell: Yes (FACE, ARMS) - MUSCULOSKELETAL/RHEUMATOLOGICAL Hx Arthritis: Yes (b/l knees and ankles) Hx Osteoporosis: Yes - GASTROINTESTINAL Hx Diverticulitis: Yes Hx Gastritis: Yes - GENITOURINARY/GYNECOLOGICAL Hx Genitourinary Disorders: Yes Hx Incontinence: Yes - PSYCHIATRIC Hx Anxiety: Yes Hx Bipolar Disorder: Yes (Patient used to take multiple medications, being seen by a psychiatrist) Hx Substance Use: No - SURGICAL HISTORY Hx Appendectomy: Yes Hx Cholecystectomy: Yes - ANESTHESIA Hx Anesthesia: Yes Hx Anesthesia Reactions: No Hx Malignant Hyperthermia: No Meds Allergies/Adverse Reactions: Allergies Allergy/AdvReac Type Severity Reaction Status Date / Time Carbapenems Allergy Intermediate Unverified 07/28/18 17:01 Cephalosporins Allergy Intermediate Unverified 07/28/18 17:04 aztreonam Allergy Mild Unverified 07/28/18 17:04 aspirin Allergy Verified 07/28/18 17:01 ciprofloxacin [From Cipro] Allergy Unverified 07/28/18 17:04 ciprofloxacin HCl Allergy Unverified 07/28/18 17:04 [From Cipro] Penicillins Allergy Verified 07/28/18 17:01 - Medications Medications: Current Medications Alprazolam (Xanax) 1 mg PO HS [facility] Last Admin: 07/29/18 00:30 Dose: Not Given Atenolol (Tenormin) 50 mg PO BID [facility] Last Admin: 07/29/18 09:22 Dose: 50 mg Clonidine HCl (Catapres) 0.2 mg PO BID [facility] Last Admin: 07/29/18 09:22 Dose: 0.2 mg Clopidogrel Bisulfate (Plavix) 75 mg PO DAILY [facility] Last Admin: 07/29/18 09:22 Dose: 75 mg Docusate Sodium (Colace) 100 mg PO BID [facility] Last Admin: 07/29/18 09:22 Dose: 100 mg Famotidine (Pepcid) 20 mg PO DAILY [facility] Last Admin: 07/29/18 09:22 Dose: 20 mg Heparin Sodium (Porcine) (Heparin) 5,000 units SC Q12 [facility] Last Admin: 07/29/18 09:22 Dose: 5,000 units Home Med (Ibuprofen [Motrin Tab]) 600 mg PO BID PRN PRN Reason: Pain, moderate (4-7) Hydralazine HCl (Apresoline) 50 mg PO BID [facility] Last Admin: 07/29/18 09:22 Dose: 50 mg Doxycycline Hyclate 100 mg/ (Sodium Chloride) 100 mls @ 100 mls/hr IVPB Q12H [facility]; Protocol Last Admin: 07/29/18 12:57 Dose: 100 mls/hr Levothyroxine Sodium (Synthroid) 75 mcg PO DAILY@0630 [facility] Lisinopril (Zestril) 40 mg PO DAILY [facility] Last Admin: 07/29/18 09:22 Dose: 40 mg Mirtazapine (Remeron) 30 mg PO [facility] Multivitamins/Minerals (Therapeutic-M Tab) 1 tab PO BID [facility] Last Admin: 07/29/18 09:22 Dose: 1 tab Pneumococcal Polyvalent Vaccine (Pneumovax 23 Vaccine) 0.5 ml IM .ONCE ONE Stop: 07/31/18 10:01 Potassium Chloride (Klor-Con 10) 10 meq PO BID [facility] Last Admin: 07/29/18 09:31 Dose: 10 meq Rosuvastatin Calcium (Crestor) 5 mg PO HS [facility] Physical Exam - Constitutional Appears: No Acute Distress - Head Exam Head Exam: NORMAL INSPECTION - Eye Exam Eye Exam: EOMI, PERRL - ENT Exam ENT Exam: Normal Oropharynx - Neck Exam Neck exam: Positive for: Normal Inspection - Respiratory Exam Respiratory Exam: Clear to Auscultation Bilateral - Cardiovascular Exam Cardiovascular Exam: REGULAR RHYTHM, +S1, +S2 - GI/Abdominal Exam GI & Abdominal Exam: Normal Bowel Sounds, Soft. absent: Organomegaly, Tenderness - Extremities Exam Extremities exam: Positive for: pedal edema, pedal pulses present. Negative for: calf tenderness - Neurological Exam Neurological exam: Alert, CN II-XII Intact, Reflexes Normal - Psychiatric Exam Psychiatric exam: Depressed - Skin Skin Exam: Normal Color, Warm Results - Vital Signs Recent Vital Signs: Last Vital Signs Temp 97.9 F 07/29/18 08:00 Pulse 77 07/29/18 08:00 Resp 20 07/29/18 08:00 BP 172/84 H 07/29/18 08:00 Pulse Ox 96 07/29/18 08:00 - Labs Result Diagrams: 07/29/18 08:31 07/29/18 08:31 Labs: Laboratory Results - last 24 hr 07/28/18 07/28/18 07/28/18 18:12 18:12 18:12 WBC 20.5 H RBC 4.93 Hgb 14.8 Hct 46.2 MCV 93.9 D MCH 30.1 MCHC 32.0 L RDW 16.4 H Plt Count 159 MPV 9.1 Neut % (Auto) 18.0 L Lymph % (Auto) 75.4 H [place] % (Auto) 3.5 Eos % (Auto) 2.6 Baso % (Auto) 0.5 Neut # (Auto) 3.7 Lymph # (Auto) 15.4 H [place] # (Auto) 0.7 Eos # (Auto) 0.5 Baso # (Auto) 0.1 Neutrophils % (Manual) 14 L Lymphocytes % (Manual) 64 H Reactive Lymphs % 21 H Monocytes % (Manual) 0 Eosinophils % (Manual) 1 Platelet Estimate Normal Anisocytosis (manual) Slight Sodium 139 Potassium 5.0 Chloride 99 Carbon Dioxide 31 H Anion Gap 13 BUN 35 H Creatinine 1.4 H Est GFR ( Amer) 44 Est GFR (Non-Af Amer) 36 Random Glucose 95 D Calcium 9.2 Magnesium 2.5 H Total Bilirubin 0.5 AST 92 H ALT 50 Alkaline Phosphatase 96 Total Protein 7.3 Albumin 4.6 Globulin 2.7 Albumin/Globulin Ratio 1.7 Lipase 27 Urine Color Straw Urine Clarity Clear Urine pH 6.0 Ur Specific [place] 1.004 Urine Protein Negative Urine Glucose (UA) Normal Urine Ketones Negative Urine Blood Negative Urine Nitrate Negative Urine Bilirubin Negative Urine Urobilinogen Normal Ur Leukocyte Esterase 2+ H Urine WBC (Auto) 16 H Urine RBC (Auto) 3 Ur Squamous Epith Cells 1 Ur Transition Epith Cell 1 Urine Bacteria Few H 07/29/18 07/29/18 08:31 08:31 WBC 16.4 H RBC 5.07 Hgb 15.5 Hct 47.6 H MCV 93.9 MCH 30.7 MCHC 32.6 L RDW 16.6 H Plt Count 159 MPV 9.3 Neut % (Auto) 13.0 L Lymph % (Auto) 80.6 H [place] % (Auto) 2.9 Eos % (Auto) 3.2 Baso % (Auto) 0.3 Neut # (Auto) 2.1 Lymph # (Auto) 13.2 H [place] # (Auto) 0.5 Eos # (Auto) 0.5 Baso # (Auto) 0.0 Neutrophils % (Manual) 12 L Lymphocytes % (Manual) 85 H Reactive Lymphs % Monocytes % (Manual) 1 Eosinophils % (Manual) 2 Platelet Estimate Normal Anisocytosis (manual) Slight Sodium 142 Potassium 4.5 Chloride 105 Carbon Dioxide 28 Anion Gap 14 BUN 24 H Creatinine 0.9 Est GFR ( Amer) > 60 Est GFR (Non-Af Amer) 60 Random Glucose 79 Calcium 8.8 Magnesium Total Bilirubin 0.6 AST 84 H ALT 50 Alkaline Phosphatase 98 Total Protein 6.8 Albumin 4.1 Globulin 2.7 Albumin/Globulin Ratio 1.5 Lipase Urine Color Urine Clarity Urine pH Ur Specific [place] Urine Protein Urine Glucose (UA) Urine Ketones Urine Blood Urine Nitrate Urine Bilirubin Urine Urobilinogen Ur Leukocyte Esterase Urine WBC (Auto) Urine RBC (Auto) Ur Squamous Epith Cells Ur Transition Epith Cell Urine Bacteria - Imaging and Cardiology Chest x-ray Status: Report reviewed by me (MEGHAN) Assessment & Plan (1) Sepsis Assessment and Plan: SOURCE OF SEPSIS NOT CLEAR ? UTI. START IV VIBRAMYCIN 100MG IVPB Q 12HRLY 07/28/18 F/U CULTURES TO ADJUST ABX. F/U CBC ,LFTS BMP IN AM Status: Acute (2) Lymphocytosis Assessment and Plan: PT HAS LYMPHOCYTOSIS WITH LEUKOCYTOSIS. CHECK LDH F/U CBC WITH DIFF SERIALLY. CT ABDOMEN/PELVIS R/O RETROPERITONEAL LYMPHADENOPATHY. Status: Acute (3) Generalized weakness Assessment and Plan: SANDERS CULTURES IV ABX R/O SEPSIS Status: Acute (4) Altered mental status Assessment and Plan: PT HAS HX OF DEPRESSION . Status: Acute
[2018-07-29] MEDS ORDERED: Iohexol 240 (50 ml) PO ONE (16:53)
[2018-07-30] MEDS: Levothyroxine 75 MCG TAB PO SCH (05:51)
[2018-07-30] MEDS: ATENOLOL 50 MG PO SCH ×2 (09:09→17:06)
[2018-07-30] MEDS: Potassium Chloride 10 mEq ER Tab PO SCH ×2 (09:09→17:07)
[2018-07-30] MEDS: Multivitamin With Minerals Tab PO SCH ×2 (09:09→17:06)
--- NOTE | 2018-07-30 11:33 | CT ---
Date of service: 07/29/2018 PROCEDURE: CT Abdomen and Pelvis without intravenous contrast HISTORY: r/o lymphoma COMPARISON: 04/25/2015 TECHNIQUE: Without contrast.. Contrast dose: 0 Radiation dose: Total exam DLP = 963.04 mGy-cm. This CT exam was performed using one or more of the following dose reduction techniques: Automated exposure control, adjustment of the mA and/or kV according to patient size, and/or use of iterative reconstruction technique. FINDINGS: LOWER THORAX: Very small hiatal hernia LIVER: Unremarkable. No gross lesion or ductal dilatation. GALLBLADDER AND BILE DUCTS: Unremarkable. PANCREAS: Unremarkable. No gross lesion or ductal dilatation. SPLEEN: Unremarkable. ADRENALS: Unremarkable. No mass. KIDNEYS AND URETERS: Left lower pole renal cortical cyst, 4.1 cm diameter. Seven Hounsfield units attenuation. No change. 1.2 cm mid right renal cortical cysts, no change. No calculus. No hydronephrosis. VASCULATURE: Unremarkable. No aortic aneurysm. There is atherosclerotic calcification of the abdominal aorta. BOWEL: Sigmoid diverticulosis. Scattered colonic diverticula elsewhere. No evidence of diverticulitis. Mild mural thickening of the sigmoid colon likely due to chronic muscular hypertrophy. No bowel obstruction. APPENDIX: Not identified. No secondary findings to suggest acute appendicitis. PERITONEUM: Unremarkable. No free fluid. No free air. LYMPH NODES: Unremarkable. No enlarged lymph nodes. BLADDER: Nondistended. REPRODUCTIVE: Unremarkable. BONES: No acute fracture. OTHER FINDINGS: None. IMPRESSION: No lymphadenopathy. Sigmoid diverticulosis without evidence of diverticulitis. Renal cysts as described. Very small hiatal hernia. No acute abnormality. The preliminary findings for this examination were reported by [facility] at 8:45 p.m. on 07/29/2018. There is discordance of this report with the preliminary findings. There is not felt to be evidence of colitis on the basis of this examination.
[2018-07-30 12:02] LABS: EOS # 0.2 K/uL (0.0-0.7); MEAN CORPUSCULAR HEMOGLOBIN 30.8 pg (27.0-31.0); MONO # 0.5 K/uL (0.0-0.8)
[2018-07-30 12:09] LABS: BASO # 0.1 K/uL (0.0-0.2); BASO % 0.4 % (0.0-2.0); LYMPH # 11.3 K/uL (1.0-4.3); LYMPH % 73.8 % (20.0-40.0); MEAN CELL VOLUME 93.5 fL (81.0-99.0); MEAN CORPUSCULAR HGB CONC 32.9 g/dL (33.0-37.0); MONO % 3.5 % (0.0-10.0); NEUT # 3.3 K/uL (1.8-7.0); NEUT % 21.3 % (50.0-75.0); NRBC % 0.2 % (0.0-2.0); PLATELET COUNT 154 K/uL (130-400); RBC 4.36 Mil/uL (3.80-5.20); RED CELL DISTRIBUTION WIDTH 16.4 % (11.5-14.5)
[2018-07-30 12:15] LABS: HEMOGLOBIN 13.4 g/dL (11.0-16.0); WHITE BLOOD COUNT 15.4 K/uL (4.8-10.8)
[2018-07-30 12:21] LABS: ALB/GLOB RATIO 1.6 (1.0-2.1); ALBUMIN 3.8 g/dL (3.5-5.0); ALT/SGPT 47 U/L (9-52); AST/SGOT 58 U/L (14-36); BLOOD UREA NITROGEN 18 mg/dL (7-17); CALCIUM 8.8 mg/dl (8.6-10.4); GFR NON-AFRICAN AMERICAN > 60
[2018-07-30 12:50] LABS: HEPATITIS B SURFACE AG Negative (NEGATIVE)
[2018-07-30 12:51] LABS: EOSINOPHIL 1 % (0-4); LYMPHOCYTE 75 % (20-40); MONOCYTE 5 % (0-10); NEUTROPHIL 19 % (50-75); TOTAL CELLS COUNTED 100
[2018-07-30 12:52] LABS: PLATELET ESTIMATE NORMAL (NORMAL)
[2018-07-30 12:55] LABS: HEPATITIS A IGM NEGATIVE (NEGATIVE); HEPATITIS B CORE AB NEGATIVE (NEGATIVE)
[2018-07-30 13:07] LABS: HEPATITIS C ANTIBODY NEGATIVE (NEGATIVE)
--- NOTE | 2018-07-30 14:08 | CP.PCM.PN ---
Subjective - Date & Time of Evaluation Date of Evaluation: 07/30/18 Time of Evaluation: 14:07 - Subjective Subjective: CHIEF COMPLAINTS TODAY : Generalized weakness and drowsiness ROS. HEENT : N. Resp : No cough, wheezing ,pleuritic CP ,or hemoptysis Cardio : No anginal CP, PND, orthopnea, palpitation GI : No abd.pain, n/v ,diarrhea or GI bleeding . 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 Musculoskel : No joint swelling , Derm : No rash Psych : Normal affect. Ext : No swelling ,calf pain PE. Pt. is alert awake in no distress. V.S As noted in the chart Head ,ear nose,throat and eyes : Normal. Neck : Supple with normal carotids. Lungs: Clear air entry. Heart : S1 & S2 normal with S4. No murmur. Abd : Soft non tender with normal bowel sounds. Neuro : Moves all ext. with no localized deficit. Ext : pos edema with intact pulses.Non tender calves Derm : No rashes or decubitus ulcer. LABS/RADIOLOGY: urine culture is positive for E. coli. CT of the abdomen is negative for lymphadenopathy. ASSESSMENT/PLAN : Continue IV antibiotics and blood pressure monitoring Objective - Vital Signs/Intake and Output Vital Signs (last 24 hours): Temp Pulse Resp BP Pulse Ox 97.9 F 79 20 178/98 H 95 07/30/18 07:20 07/30/18 07:20 07/30/18 07:20 07/30/18 07:20 07/30/18 07:20 Intake and Output: 07/30/18 07/30/18 11:59 23:59 Intake Total 280 Balance 280 - Medications Medications: Current Medications Acetaminophen (Tylenol 325mg Tab) 650 mg PO Q6 PRN PRN Reason: Pain, moderate (4-7) Alprazolam (Xanax) 1 mg PO HS [facility] Last Admin: 07/29/18 22:00 Dose: 1 mg Atenolol (Tenormin) 50 mg PO BID [facility] Last Admin: 07/30/18 09:09 Dose: 50 mg Clonidine HCl (Catapres) 0.2 mg PO BID [facility] Last Admin: 07/30/18 09:09 Dose: 0.2 mg Clopidogrel Bisulfate (Plavix) 75 mg PO DAILY [facility] Last Admin: 07/30/18 09:10 Dose: 75 mg Docusate Sodium (Colace) 100 mg PO BID [facility] Last Admin: 07/30/18 09:09 Dose: 100 mg Famotidine (Pepcid) 20 mg PO DAILY [facility] Last Admin: 07/30/18 09:09 Dose: 20 mg Heparin Sodium (Porcine) (Heparin) 5,000 units SC Q12 [facility] Last Admin: 07/30/18 09:10 Dose: 5,000 units Hydralazine HCl (Apresoline) 50 mg PO BID [facility] Last Admin: 07/30/18 09:10 Dose: 50 mg Doxycycline Hyclate 100 mg/ (Sodium Chloride) 100 mls @ 100 mls/hr IVPB Q12H [facility]; Protocol Last Admin: 07/30/18 12:49 Dose: 100 mls/hr Levothyroxine Sodium (Synthroid) 75 mcg PO DAILY@0630 [facility] Last Admin: 07/30/18 05:51 Dose: 75 mcg Lisinopril (Zestril) 40 mg PO DAILY [facility] Last Admin: 07/30/18 09:09 Dose: 40 mg Mirtazapine (Remeron) 30 mg PO [facility] Last Admin: 07/29/18 22:10 Dose: 30 mg Multivitamins/Minerals (Therapeutic-M Tab) 1 tab PO BID [facility] Last Admin: 07/30/18 09:09 Dose: 1 tab Pneumococcal Polyvalent Vaccine (Pneumovax 23 Vaccine) 0.5 ml IM .ONCE ONE Stop: 07/31/18 10:01 Potassium Chloride (Klor-Con 10) 10 meq PO BID [facility] Last Admin: 07/30/18 09:09 Dose: 10 meq Rosuvastatin Calcium (Crestor) 5 mg PO [facility] Last Admin: 07/29/18 22:10 Dose: 5 mg - Labs Labs: 07/30/18 11:53 07/30/18 11:53 Assessment and Plan (1) Sepsis Status: Acute (2) Generalized weakness Status: Acute (3) Hypertension Status: Chronic (4) UTI (urinary tract infection) Status: Acute
--- NOTE | 2018-07-30 19:40 | CP.PCM.PN ---
Subjective - Date & Time of Evaluation Date of Evaluation: 07/30/18 Time of Evaluation: 19:40 - Subjective Subjective: CHIEF COMPLAINTS TODAY : AFEBRILE STILL FEELS WEAK ROS. HEENT : N. Resp : No cough, wheezing ,pleuritic CP ,or hemoptysis Cardio : No anginal CP, PND, orthopnea, palpitation GI : No abd.pain, n/v ,diarrhea or GI bleeding . 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 Musculoskel : No joint swelling , Derm : No rash Psych : Normal affect. Ext : No swelling ,calf pain PE. Pt. is alert awake in no distress. V.S As noted in the chart Head ,ear nose,throat and eyes : Normal. Neck : Supple with normal carotids. Lungs: Clear air entry. Heart : S1 & S2 normal with S4. No murmur. Abd : Soft non tender with normal bowel sounds. Neuro : Moves all ext. with no localized deficit. Ext : pos edema with intact pulses.Non tender calves Derm : No rashes or decubitus ulcer. LABS/RADIOLOGY: urine culture is positive for E. coli. -PANSENSITIVE CT of the abdomen is negative for lymphadenopathy. Objective - Vital Signs/Intake and Output Vital Signs (last 24 hours): Temp Pulse Resp BP Pulse Ox 98.1 F 69 20 166/95 H 98 07/30/18 15:49 07/30/18 15:49 07/30/18 15:49 07/30/18 15:49 07/30/18 15:49 Intake and Output: 07/30/18 07/31/18 18:59 06:59 Intake Total 860 Balance 860 - Medications Medications: Current Medications Acetaminophen (Tylenol 325mg Tab) 650 mg PO Q6 PRN PRN Reason: Pain, moderate (4-7) Alprazolam (Xanax) 1 mg PO HS [facility] Last Admin: 07/29/18 22:00 Dose: 1 mg Atenolol (Tenormin) 50 mg PO BID [facility] Last Admin: 07/30/18 17:06 Dose: 50 mg Clonidine HCl (Catapres) 0.2 mg PO BID [facility] Last Admin: 07/30/18 17:06 Dose: 0.2 mg Clopidogrel Bisulfate (Plavix) 75 mg PO DAILY [facility] Last Admin: 07/30/18 09:10 Dose: 75 mg Docusate Sodium (Colace) 100 mg PO BID [facility] Last Admin: 07/30/18 17:06 Dose: 100 mg Famotidine (Pepcid) 20 mg PO DAILY [facility] Last Admin: 07/30/18 09:09 Dose: 20 mg Heparin Sodium (Porcine) (Heparin) 5,000 units SC Q12 [facility] Last Admin: 07/30/18 09:10 Dose: 5,000 units Hydralazine HCl (Apresoline) 50 mg PO BID [facility] Last Admin: 07/30/18 17:07 Dose: 50 mg Doxycycline Hyclate 100 mg/ (Sodium Chloride) 100 mls @ 100 mls/hr IVPB Q12H [facility]; Protocol Last Admin: 07/30/18 12:49 Dose: 100 mls/hr Levothyroxine Sodium (Synthroid) 75 mcg PO DAILY@0630 [facility] Last Admin: 07/30/18 05:51 Dose: 75 mcg Lisinopril (Zestril) 40 mg PO DAILY [facility] Last Admin: 07/30/18 09:09 Dose: 40 mg Mirtazapine (Remeron) 30 mg PO [facility] Last Admin: 07/29/18 22:10 Dose: 30 mg Multivitamins/Minerals (Therapeutic-M Tab) 1 tab PO BID [facility] Last Admin: 07/30/18 17:06 Dose: 1 tab Pneumococcal Polyvalent Vaccine (Pneumovax 23 Vaccine) 0.5 ml IM .ONCE ONE Stop: 07/31/18 10:01 Potassium Chloride (Klor-Con 10) 10 meq PO BID [facility] Last Admin: 07/30/18 17:07 Dose: 10 meq Rosuvastatin Calcium (Crestor) 5 mg PO [facility] Last Admin: 07/29/18 22:10 Dose: 5 mg - Labs Labs: 07/30/18 11:53 07/30/18 11:53 Assessment and Plan (1) Sepsis Status: Acute (2) Lymphocytosis Status: Acute (3) Generalized weakness Status: Acute (4) Altered mental status Status: Acute - Assessment and Plan (Free Text) Plan: ASSESSMENT/PLAN : Continue IV antibiotics . F/U LFTS WHICH ARE IMPROVING. blood pressure monitoring
[2018-07-31] MEDS: Levothyroxine 75 MCG TAB PO SCH (05:54)
[2018-07-31 08:30] LABS: BASO % 0.3 % (0.0-2.0); EOS # 0.2 K/uL (0.0-0.7); EOS % 1.5 % (0.0-4.0); HEMOGLOBIN 12.9 g/dL (11.0-16.0); LYMPH # 12.4 K/uL (1.0-4.3); LYMPH % 77.6 % (20.0-40.0); MEAN CELL VOLUME 93.5 fL (81.0-99.0); MEAN CORPUSCULAR HEMOGLOBIN 30.6 pg (27.0-31.0); MEAN CORPUSCULAR HGB CONC 32.7 g/dL (33.0-37.0); MEAN PLATELET VOLUME 9.1 fL (7.2-11.7); MONO # 0.5 K/uL (0.0-0.8); NEUT # 2.8 K/uL (1.8-7.0); NEUT % 17.6 % (50.0-75.0); NRBC % 0.1 % (0.0-2.0); PLATELET COUNT 143 K/uL (130-400); RBC 4.22 Mil/uL (3.80-5.20); RED CELL DISTRIBUTION WIDTH 16.3 % (11.5-14.5)
[2018-07-31 08:52] LABS: ALB/GLOB RATIO 1.6 (1.0-2.1); ALBUMIN 3.6 g/dL (3.5-5.0); ALT/SGPT 50 U/L (9-52); AST/SGOT 49 U/L (14-36); BLOOD UREA NITROGEN 17 mg/dL (7-17); CALCIUM 8.8 mg/dl (8.6-10.4); GFR NON-AFRICAN AMERICAN > 60
[2018-07-31 09:49] LABS: ANISOCYTOSIS SLIGHT; EOSINOPHIL 1 % (0-4); LYMPHOCYTE 47 % (20-40); MONOCYTE 1 % (0-10); NEUTROPHIL 17 % (50-75); PLATELET ESTIMATE NORMAL (NORMAL); REACTIVE LYMPHOCYTES 34 % (0-0); TOTAL CELLS COUNTED 100
[2018-07-31] MEDS ORDERED: Pneumococcal 23-Valent Vaccine IM ONE (10:00)
[2018-07-31] MEDS: Potassium Chloride 10 mEq ER Tab PO SCH ×2 (10:30→18:13)
[2018-07-31] MEDS: ATENOLOL 50 MG PO SCH ×2 (10:30→18:13)
[2018-07-31] MEDS: Multivitamin With Minerals Tab PO SCH ×2 (10:31→18:13)
--- NOTE | 2018-07-31 12:24 | CP.PCM.PN ---
Subjective - Date & Time of Evaluation Date of Evaluation: 07/31/18 Time of Evaluation: 12:24 - Subjective Subjective: CHIEF COMPLAINTS TODAY : Generalized weakness and drowsiness ROS. HEENT : N. Resp : No cough, wheezing ,pleuritic CP ,or hemoptysis Cardio : No anginal CP, PND, orthopnea, palpitation GI : No abd.pain, n/v ,diarrhea or GI bleeding . 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 Musculoskel : No joint swelling , Derm : No rash Psych : Normal affect. Ext : No swelling ,calf pain PE. Pt. is alert awake in no distress. V.S As noted in the chart Head ,ear nose,throat and eyes : Normal. Neck : Supple with normal carotids. Lungs: Clear air entry. Heart : S1 & S2 normal with S4. No murmur. Abd : Soft non tender with normal bowel sounds. Neuro : Moves all ext. with no localized deficit. Ext : pos edema with intact pulses.Non tender calves Derm : No rashes or decubitus ulcer. LABS/RADIOLOGY: urine culture is positive for E. coli. CT of the abdomen is negative for lymphadenopathy. ASSESSMENT/PLAN : Continue IV antibiotics and blood pressure monitoring Objective - Vital Signs/Intake and Output Vital Signs (last 24 hours): Temp Pulse Resp BP Pulse Ox 98.4 F 70 20 156/91 H 96 07/31/18 07:22 07/31/18 07:22 07/31/18 07:22 07/31/18 07:22 07/31/18 07:22 Intake and Output: 07/31/18 07/31/18 11:59 23:59 Intake Total 100 Balance 100 - Medications Medications: Current Medications Acetaminophen (Tylenol 325mg Tab) 650 mg PO Q6 PRN PRN Reason: Pain, moderate (4-7) Last Admin: 07/31/18 00:40 Dose: 650 mg Alprazolam (Xanax) 1 mg PO HS [facility] Last Admin: 07/30/18 21:26 Dose: 1 mg Atenolol (Tenormin) 50 mg PO BID [facility] Last Admin: 07/31/18 10:30 Dose: 50 mg Clonidine HCl (Catapres) 0.2 mg PO BID [facility] Last Admin: 07/31/18 10:30 Dose: 0.2 mg Clopidogrel Bisulfate (Plavix) 75 mg PO DAILY [facility] Last Admin: 07/31/18 10:31 Dose: 75 mg Docusate Sodium (Colace) 100 mg PO BID [facility] Last Admin: 07/31/18 10:36 Dose: Not Given Famotidine (Pepcid) 20 mg PO DAILY [facility] Last Admin: 07/31/18 10:30 Dose: 20 mg Heparin Sodium (Porcine) (Heparin) 5,000 units SC Q12 [facility] Last Admin: 07/31/18 10:30 Dose: 5,000 units Hydralazine HCl (Apresoline) 50 mg PO BID [facility] Last Admin: 07/31/18 10:30 Dose: 50 mg Doxycycline Hyclate 100 mg/ (Sodium Chloride) 100 mls @ 100 mls/hr IVPB Q12H [facility]; Protocol Last Admin: 07/31/18 11:37 Dose: 100 mls/hr Levothyroxine Sodium (Synthroid) 75 mcg PO DAILY@0630 [facility] Last Admin: 07/31/18 05:54 Dose: 75 mcg Lisinopril (Zestril) 40 mg PO DAILY [facility] Last Admin: 07/31/18 10:31 Dose: 40 mg Mirtazapine (Remeron) 30 mg PO HS [facility] Last Admin: 07/30/18 21:28 Dose: 30 mg Multivitamins/Minerals (Therapeutic-M Tab) 1 tab PO BID [facility] Last Admin: 07/31/18 10:31 Dose: 1 tab Potassium Chloride (Klor-Con 10) 10 meq PO BID [facility] Last Admin: 07/31/18 10:30 Dose: 10 meq Rosuvastatin Calcium (Crestor) 5 mg PO HS [facility] Last Admin: 07/30/18 21:25 Dose: 5 mg - Labs Labs: 07/31/18 08:24 07/31/18 08:24 Assessment and Plan (1) Sepsis Status: Acute (2) Generalized weakness Status: Acute (3) Hypertension Status: Chronic (4) UTI (urinary tract infection) Status: Acute
--- NOTE | 2018-07-31 18:35 | CP.PCM.PN ---
Subjective - Date & Time of Evaluation Date of Evaluation: 07/31/18 Time of Evaluation: 18:35 - Subjective Subjective: CHIEF COMPLAINTS TODAY : AFEBRILE STILL FEELS WEAK NO NEW COMPLAINTS ROS. HEENT : N. Resp : No cough, wheezing ,pleuritic CP ,or hemoptysis Cardio : No anginal CP, PND, orthopnea, palpitation GI : No abd.pain, n/v ,diarrhea or GI bleeding . 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 Musculoskel : No joint swelling , Derm : No rash Psych : Normal affect. Ext : No swelling ,calf pain PE. Pt. is alert awake in no distress. V.S As noted in the chart Head ,ear nose,throat and eyes : Normal. Neck : Supple with normal carotids. Lungs: Clear air entry. Heart : S1 & S2 normal with S4. No murmur. Abd : Soft non tender with normal bowel sounds. Neuro : Moves all ext. with no localized deficit. Ext : pos edema with intact pulses.Non tender calves Derm : No rashes or decubitus ulcer. LABS/RADIOLOGY: urine culture is positive for E. coli. -PANSENSITIVE CT of the abdomen is negative for lymphadenopathy. Objective - Vital Signs/Intake and Output Vital Signs (last 24 hours): Temp Pulse Resp BP Pulse Ox 98.1 F 72 20 155/88 H 97 07/31/18 17:27 07/31/18 17:27 07/31/18 17:27 07/31/18 17:27 07/31/18 17:27 Intake and Output: 07/31/18 07/31/18 06:59 18:59 Intake Total 300 500 Balance 300 500 - Medications Medications: Current Medications Acetaminophen (Tylenol 325mg Tab) 650 mg PO Q6 PRN PRN Reason: Pain, moderate (4-7) Last Admin: 07/31/18 13:28 Dose: 650 mg Alprazolam (Xanax) 1 mg PO HS [facility] Last Admin: 07/30/18 21:26 Dose: 1 mg Atenolol (Tenormin) 50 mg PO BID [facility] Last Admin: 07/31/18 18:13 Dose: 50 mg Clonidine HCl (Catapres) 0.2 mg PO BID [facility] Last Admin: 07/31/18 18:13 Dose: 0.2 mg Clopidogrel Bisulfate (Plavix) 75 mg PO DAILY [facility] Last Admin: 07/31/18 10:31 Dose: 75 mg Docusate Sodium (Colace) 100 mg PO BID [facility] Last Admin: 07/31/18 10:36 Dose: Not Given Famotidine (Pepcid) 20 mg PO DAILY [facility] Last Admin: 07/31/18 10:30 Dose: 20 mg Heparin Sodium (Porcine) (Heparin) 5,000 units SC Q12 [facility] Last Admin: 07/31/18 10:30 Dose: 5,000 units Hydralazine HCl (Apresoline) 50 mg PO BID [facility] Last Admin: 07/31/18 18:13 Dose: 50 mg Doxycycline Hyclate 100 mg/ (Sodium Chloride) 100 mls @ 100 mls/hr IVPB Q12H [facility]; Protocol Last Admin: 07/31/18 11:37 Dose: 100 mls/hr Levothyroxine Sodium (Synthroid) 75 mcg PO DAILY@0630 [facility] Last Admin: 07/31/18 05:54 Dose: 75 mcg Lisinopril (Zestril) 40 mg PO DAILY [facility] Last Admin: 07/31/18 10:31 Dose: 40 mg Mirtazapine (Remeron) 30 mg PO HS [facility] Last Admin: 07/30/18 21:28 Dose: 30 mg Multivitamins/Minerals (Therapeutic-M Tab) 1 tab PO BID [facility] Last Admin: 07/31/18 18:13 Dose: 1 tab Potassium Chloride (Klor-Con 10) 10 meq PO BID [facility] Last Admin: 07/31/18 18:13 Dose: 10 meq Rosuvastatin Calcium (Crestor) 5 mg PO HS [facility] Last Admin: 07/30/18 21:25 Dose: 5 mg - Labs Labs: 07/31/18 08:24 07/31/18 08:24 Assessment and Plan (1) Sepsis Status: Acute (2) Lymphocytosis Status: Acute (3) Generalized weakness Status: Acute (4) Altered mental status Status: Acute - Assessment and Plan (Free Text) Plan: Continue IV antibiotics . F/U LFTS WHICH ARE IMPROVING. blood pressure monitoring
[2018-08-01] MEDS: Levothyroxine 75 MCG TAB PO SCH (06:34)
[2018-08-01] MEDS: ATENOLOL 50 MG PO SCH ×3 (08:06→17:42)
[2018-08-01 08:32] VITALS: TEMP 98.1
[2018-08-01 08:37] LABS: ALB/GLOB RATIO 1.7 (1.0-2.1); ALBUMIN 4.3 g/dL (3.5-5.0); ALT/SGPT 60 U/L (9-52); AST/SGOT 55 U/L (14-36); BASO # 0.1 K/uL (0.0-0.2); BASO % 0.3 % (0.0-2.0); BLOOD UREA NITROGEN 18 mg/dL (7-17); CALCIUM 9.4 mg/dl (8.6-10.4); EOS # 0.2 K/uL (0.0-0.7); EOS % 0.9 % (0.0-4.0); GFR NON-AFRICAN AMERICAN > 60; HEMOGLOBIN 14.3 g/dL (11.0-16.0); LYMPH # 16.6 K/uL (1.0-4.3); LYMPH % 77.2 % (20.0-40.0); MEAN CELL VOLUME 93.8 fL (81.0-99.0); MEAN CORPUSCULAR HEMOGLOBIN 31.1 pg (27.0-31.0); MEAN CORPUSCULAR HGB CONC 33.1 g/dL (33.0-37.0); MONO # 0.6 K/uL (0.0-0.8); MONO % 2.8 % (0.0-10.0); NEUT % 18.8 % (50.0-75.0); NRBC % 0.4 % (0.0-2.0); PLATELET COUNT 170 K/uL (130-400); RBC 4.61 Mil/uL (3.80-5.20); RED CELL DISTRIBUTION WIDTH 16.4 % (11.5-14.5); WHITE BLOOD COUNT 21.5 K/uL (4.8-10.8)
[2018-08-01 10:05] LABS: EOSINOPHIL 1 % (0-4); MONOCYTE 4 % (0-10); NEUTROPHIL 15 % (50-75); PLATELET ESTIMATE NORMAL (NORMAL); TOTAL CELLS COUNTED 100
[2018-08-01 10:06] LABS: ANISOCYTOSIS SLIGHT; LARGE PLATELETS PRESENT; LYMPHOCYTE 69 % (20-40); REACTIVE LYMPHOCYTES 11 % (0-0)
[2018-08-01] MEDS: Potassium Chloride 10 mEq ER Tab PO SCH ×2 (10:28→17:42)
[2018-08-01] MEDS: Multivitamin With Minerals Tab PO SCH ×2 (10:28→17:41)
--- NOTE | 2018-08-01 13:02 | CARD ---
APPROVED REPORT Date of service: 07/30/2018 EXAM: Two-dimensional and M-mode echocardiogram with Doppler and color Doppler. Other Information Quality : GoodRhythm : INDICATION Dizziness and Vertigo Cardiac Disease: CAD LV Function: Palpitations RISK FACTORS Hypertension Hyperlipidemia 2D DIMENSIONS IVSd1.4 (0.7-1.1cm)Aortic Root (2D)3.8 (2.0-3.7cm) LVDd4.2 (3.9-5.9cm)PWd1.1 (0.7-1.1cm) LA Ejwllt44 (18-58mL)LVDs3.3 (2.5-4.0cm) FS (%) 21.8 %LVEF (%)50.0 (>50%) LVEF (Fernandez's)59.13 %IVC0.00 cm M-Mode DIMENSIONS RVDd1.03 (2.1-3.2cm)Left Atrium (MM)4.35 (2.5-4.0cm) IVSd1.00 (0.7-1.1cm)Aortic Root3.47 (2.2-3.7cm) LVDd4.88 (4.0-5.6cm)Aortic Cusp Exc.2.18 (1.5-2.0cm) PWd1.21 (0.7-1.1cm)FS (%) 42 % LVDs2.82 (2.0-3.8cm)LVEF (%)59 (>50%) Mitral Valve MV E Fmyrlelp00.6cm/sMV A Pjlrymof026.2cm/sE/A ratio0.5 TDI Lateral E' Peak V5.64cm/sMedial E' Peak V3.25cm/sE/Lateral E'10.6 E/Medial E'18.3 Tricuspid Valve TR Peak [id number]/sTR Peak [id number] LEFT VENTRICLE The left ventricle is normal size. There is normal left ventricular wall thickness. The left ventricular function is normal. The left ventricular ejection fraction is within the normal range. No regional wall motion abnormalities noted. The left ventricular diastolic function is normal. No left ventricle thrombus noted on this study. There is no ventricular septal defect visualized. There is no left ventricular aneurysm. There is no mass noted in the left ventricle. RIGHT VENTRICLE The right ventricle is normal size. There is normal right ventricular wall thickness. The right ventricular systolic function is normal. ATRIA The left atrium size is normal. The right atrium size is normal. The interatrial septum is intact with no evidence for an atrial septal defect. AORTIC VALVE The aortic valve is normal in structure and function. No aortic regurgitation is present. There is no aortic valvular stenosis. There is no aortic valvular vegetation. MITRAL VALVE The mitral valve is normal in structure and function. There is no evidence of mitral valve prolapse. There is no mitral valve stenosis. There is no mitral valve regurgitation noted. TRICUSPID VALVE The tricuspid valve is normal in structure and function. There is mild tricuspid regurgitation. Right ventricular systolic pressure is estimated at 30-40 mmHg. There is no tricuspid valve prolapse or vegetation. There is no tricuspid valve stenosis. PULMONIC VALVE The pulmonary valve is normal in structure and function. There is no pulmonic valvular regurgitation. There is no pulmonic valvular stenosis. GREAT VESSELS The aortic root is normal in size. The ascending aorta is normal in size. The pulmonary artery is normal. The IVC is normal in size and collapses >50% with inspiration. PERICARDIAL EFFUSION The pericardium appears normal. There is no pleural effusion. <Conclusion> The left ventricular function is normal. The left ventricular ejection fraction is within the normal range. No regional wall motion abnormalities noted.
--- NOTE | 2018-08-01 15:30 | CP.PCM.PN ---
Subjective - Date & Time of Evaluation Date of Evaluation: 08/01/18 Time of Evaluation: 15:28 - Subjective Subjective: CHIEF COMPLAINTS TODAY : patient is more alert and awake Blood pressure systolic is elevated WBC count is trending up to 21,000 ROS. HEENT : N. Resp : No cough, wheezing ,pleuritic CP ,or hemoptysis Cardio : No anginal CP, PND, orthopnea, palpitation GI : No abd.pain, n/v ,diarrhea or GI bleeding . 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 Musculoskel : No joint swelling , Derm : No rash Psych : Normal affect. Ext : No swelling ,calf pain PE. Pt. is alert awake in no distress. V.S As noted in the chart Head ,ear nose,throat and eyes : Normal. Neck : Supple with normal carotids. Lungs: Clear air entry. Heart : S1 & S2 normal with S4. No murmur. Abd : Soft non tender with normal bowel sounds. Neuro : Moves all ext. with no localized deficit. Ext : pos edema with intact pulses.Non tender calves Derm : No rashes or decubitus ulcer. LABS/RADIOLOGY: urine culture is positive for E. coli. CT of the abdomen is negative for lymphadenopathy. ASSESSMENT/PLAN : Continue IV antibiotics and blood pressure monitoring. Add stat dose of clonidine 0.2 mg Objective - Vital Signs/Intake and Output Vital Signs (last 24 hours): Temp Pulse Resp BP Pulse Ox 98.1 F 78 20 179/98 H 95 08/01/18 08:32 08/01/18 12:40 08/01/18 08:32 08/01/18 12:40 08/01/18 08:32 Intake and Output: 08/01/18 08/01/18 11:59 23:59 Intake Total 400 Balance 400 - Medications Medications: Current Medications Acetaminophen (Tylenol 325mg Tab) 650 mg PO Q6 PRN PRN Reason: Pain, moderate (4-7) Last Admin: 08/01/18 08:08 Dose: 650 mg Alprazolam (Xanax) 1 mg PO [facility] Last Admin: 07/31/18 22:04 Dose: 1 mg Atenolol (Tenormin) 50 mg PO BID [facility] Last Admin: 08/01/18 09:17 Dose: Not Given Clonidine HCl (Catapres) 0.2 mg PO BID [facility] Last Admin: 08/01/18 09:17 Dose: Not Given Clopidogrel Bisulfate (Plavix) 75 mg PO DAILY [facility] Last Admin: 08/01/18 10:28 Dose: 75 mg Docusate Sodium (Colace) 100 mg PO BID [facility] Last Admin: 08/01/18 09:17 Dose: Not Given Famotidine (Pepcid) 20 mg PO DAILY [facility] Last Admin: 08/01/18 10:28 Dose: 20 mg Hydralazine HCl (Apresoline) 50 mg PO BID [facility] Last Admin: 08/01/18 09:16 Dose: Not Given Doxycycline Hyclate 100 mg/ (Sodium Chloride) 100 mls @ 100 mls/hr IVPB Q12H [facility]; Protocol Last Admin: 08/01/18 12:33 Dose: 100 mls/hr Levothyroxine Sodium (Synthroid) 75 mcg PO DAILY@0630 [facility] Last Admin: 08/01/18 06:34 Dose: 75 mcg Lisinopril (Zestril) 40 mg PO DAILY [facility] Last Admin: 08/01/18 09:17 Dose: Not Given Mirtazapine (Remeron) 30 mg PO [facility] Last Admin: 07/31/18 22:14 Dose: 30 mg Multivitamins/Minerals (Therapeutic-M Tab) 1 tab PO BID [facility] Last Admin: 08/01/18 10:28 Dose: 1 tab Potassium Chloride (Klor-Con 10) 10 meq PO BID [facility] Last Admin: 08/01/18 10:28 Dose: 10 meq Rosuvastatin Calcium (Crestor) 5 mg PO [facility] Last Admin: 07/31/18 22:04 Dose: 5 mg - Labs Labs: 08/01/18 08:06 08/01/18 08:06 Assessment and Plan (1) Sepsis Status: Acute (2) Generalized weakness Status: Acute (3) Hypertension Status: Chronic (4) UTI (urinary tract infection) Status: Acute
--- NOTE | 2018-08-01 23:21 | CP.PCM.PN ---
Subjective - Date & Time of Evaluation Date of Evaluation: 08/01/18 Time of Evaluation: 23:21 - Subjective Subjective: CHIEF COMPLAINTS TODAY : AFEBRILE BP 175/108 HIGH NO NEW COMPLAINTS ROS. HEENT : N. Resp : No cough, wheezing ,pleuritic CP ,or hemoptysis Cardio : No anginal CP, PND, orthopnea, palpitation GI : No abd.pain, n/v ,diarrhea or GI bleeding . 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 Musculoskel : No joint swelling , Derm : No rash Psych : Normal affect. Ext : No swelling ,calf pain PE. Pt. is alert awake in no distress. V.S As noted in the chart Head ,ear nose,throat and eyes : Normal. Neck : Supple with normal carotids. Lungs: Clear air entry. Heart : S1 & S2 normal with S4. No murmur. Abd : Soft non tender with normal bowel sounds. Neuro : Moves all ext. with no localized deficit. Ext : pos edema with intact pulses.Non tender calves Derm : No rashes or decubitus ulcer. LABS/RADIOLOGY: WBC 21.5 WITH 77% L urine culture is positive for E. coli. -PANSENSITIVE CT of the abdomen is negative for lymphadenopathy./LT KIDNEY CYST 4,0CM Objective - Vital Signs/Intake and Output Vital Signs (last 24 hours): Temp Pulse Resp BP Pulse Ox 98.1 F 76 20 175/108 H 99 08/01/18 15:00 08/01/18 15:00 08/01/18 15:00 08/01/18 15:00 08/01/18 15:00 Intake and Output: 08/01/18 08/02/18 18:59 06:59 Intake Total 1200 300 Balance 1200 300 - Medications Medications: Current Medications Acetaminophen (Tylenol 325mg Tab) 650 mg PO Q6 PRN PRN Reason: Pain, moderate (4-7) Last Admin: 08/01/18 08:08 Dose: 650 mg Alprazolam (Xanax) 1 mg PO HS [facility] Last Admin: 08/01/18 22:00 Dose: 1 mg Atenolol (Tenormin) 50 mg PO BID [facility] Last Admin: 08/01/18 17:42 Dose: 50 mg Clonidine HCl (Catapres) 0.2 mg PO BID [facility] Last Admin: 08/01/18 17:42 Dose: 0.2 mg Clopidogrel Bisulfate (Plavix) 75 mg PO DAILY [facility] Last Admin: 08/01/18 10:28 Dose: 75 mg Docusate Sodium (Colace) 100 mg PO BID [facility] Last Admin: 08/01/18 17:42 Dose: 100 mg Famotidine (Pepcid) 20 mg PO DAILY [facility] Last Admin: 08/01/18 10:28 Dose: 20 mg Hydralazine HCl (Apresoline) 50 mg PO BID [facility] Last Admin: 08/01/18 17:42 Dose: 50 mg Doxycycline Hyclate 100 mg/ (Sodium Chloride) 100 mls @ 100 mls/hr IVPB Q12H [facility]; Protocol Last Admin: 08/01/18 12:33 Dose: 100 mls/hr Levothyroxine Sodium (Synthroid) 75 mcg PO DAILY@0630 [facility] Last Admin: 08/01/18 06:34 Dose: 75 mcg Lisinopril (Zestril) 40 mg PO DAILY [facility] Last Admin: 08/01/18 09:17 Dose: Not Given Mirtazapine (Remeron) 30 mg PO [facility] Last Admin: 08/01/18 22:01 Dose: 30 mg Multivitamins/Minerals (Therapeutic-M Tab) 1 tab PO BID [facility] Last Admin: 08/01/18 17:41 Dose: 1 tab Potassium Chloride (Klor-Con 10) 10 meq PO BID [facility] Last Admin: 08/01/18 17:42 Dose: 10 meq Rosuvastatin Calcium (Crestor) 5 mg PO [facility] Last Admin: 08/01/18 22:00 Dose: 5 mg - Labs Labs: 08/01/18 08:06 08/01/18 08:06 Assessment and Plan (1) Sepsis Status: Acute (2) Lymphocytosis Status: Acute (3) Generalized weakness Status: Acute (4) Altered mental status Status: Acute - Assessment and Plan (Free Text) Plan: Continue IV antibiotics . F/U LFTS WHICH ARE IMPROVING. ETIOLOGY OF LEKOCYTOSIS WITH LYMPHOCYTOSIS NOT CLEAR ? CLL WILL DISCUSS WITH PMD HEMATOLOGY EVAL. REPEAT UA/ URINE CULTURE CLEAN CATCH. blood pressure monitoring 2GM NA DIET
[2018-08-02] MEDS: Levothyroxine 75 MCG TAB PO SCH (05:30)
[2018-08-02 08:02] LABS: BASO # 0.1 K/uL (0.0-0.2); BASO % 0.6 % (0.0-2.0); EOS # 0.2 K/uL (0.0-0.7); EOS % 1.2 % (0.0-4.0); HEMOGLOBIN 12.7 g/dL (11.0-16.0); LYMPH # 14.6 K/uL (1.0-4.3); LYMPH % 75.1 % (20.0-40.0); MEAN PLATELET VOLUME 8.9 fL (7.2-11.7); MONO # 0.6 K/uL (0.0-0.8); MONO % 3.3 % (0.0-10.0); NEUT # 3.9 K/uL (1.8-7.0); NEUT % 19.8 % (50.0-75.0); NRBC % 0.1 % (0.0-2.0); PLATELET COUNT 139 K/uL (130-400); RED CELL DISTRIBUTION WIDTH 16.1 % (11.5-14.5); WHITE BLOOD COUNT 19.4 K/uL (4.8-10.8)
[2018-08-02 08:15] LABS: ALB/GLOB RATIO 1.6 (1.0-2.1); ALBUMIN 3.5 g/dL (3.5-5.0); ALT/SGPT 62 U/L (9-52); AST/SGOT 64 U/L (14-36); BLOOD UREA NITROGEN 16 mg/dL (7-17); CALCIUM 8.7 mg/dl (8.6-10.4); GFR NON-AFRICAN AMERICAN > 60
[2018-08-02 09:05] LABS: BASOPHIL 1 % (0-2); EOSINOPHIL 2 % (0-4); LYMPHOCYTE 68 % (20-40); MONOCYTE 2 % (0-10); NEUTROPHIL 13 % (50-75); PLATELET ESTIMATE NORMAL (NORMAL); REACTIVE LYMPHOCYTES 14 % (0-0); TOTAL CELLS COUNTED 100
[2018-08-02 09:06] LABS: ANISOCYTOSIS SLIGHT; POIKILOCYTOSIS SLIGHT
[2018-08-02 09:07] LABS: GIANT PLATELETS PRESENT
[2018-08-02 09:08] LABS: BURR CELLS SLIGHT
[2018-08-02 09:09] LABS: OVALOCYTES SLIGHT
[2018-08-02] MEDS: ATENOLOL 50 MG PO SCH ×2 (10:05→17:42)
[2018-08-02] MEDS: Potassium Chloride 10 mEq ER Tab PO SCH ×2 (10:05→17:42)
[2018-08-02] MEDS: Multivitamin With Minerals Tab PO SCH ×2 (10:06→17:42)
--- NOTE | 2018-08-02 13:51 | CP.PCM.PN ---
Subjective - Date & Time of Evaluation Date of Evaluation: 08/02/18 Time of Evaluation: 13:50 - Subjective Subjective: CHIEF COMPLAINTS TODAY : patient is more alert and awake Blood pressure systolic is elevated WBC count is trending up to 21,000 ROS. HEENT : N. Resp : No cough, wheezing ,pleuritic CP ,or hemoptysis Cardio : No anginal CP, PND, orthopnea, palpitation GI : No abd.pain, n/v ,diarrhea or GI bleeding . 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 Musculoskel : No joint swelling , Derm : No rash Psych : Normal affect. Ext : No swelling ,calf pain PE. Pt. is alert awake in no distress. V.S As noted in the chart Head ,ear nose,throat and eyes : Normal. Neck : Supple with normal carotids. Lungs: Clear air entry. Heart : S1 & S2 normal with S4. No murmur. Abd : Soft non tender with normal bowel sounds. Neuro : Moves all ext. with no localized deficit. Ext : pos edema with intact pulses.Non tender calves Derm : No rashes or decubitus ulcer. LABS/RADIOLOGY: urine culture is positive for E. coli. CT of the abdomen is negative for lymphadenopathy. ASSESSMENT/PLAN : Continue IV antibiotics and blood pressure monitoring. NAM Objective - Vital Signs/Intake and Output Vital Signs (last 24 hours): Temp Pulse Resp BP Pulse Ox 98.1 F 63 20 154/83 H 99 08/02/18 07:42 08/02/18 07:42 08/02/18 07:42 08/02/18 07:42 08/02/18 07:42 Intake and Output: 08/02/18 08/02/18 11:59 23:59 Intake Total 400 Balance 400 - Medications Medications: Current Medications Acetaminophen (Tylenol 325mg Tab) 650 mg PO Q6 PRN PRN Reason: Pain, moderate (4-7) Last Admin: 08/02/18 05:19 Dose: 650 mg Alprazolam (Xanax) 1 mg PO HS [facility] Last Admin: 08/01/18 22:00 Dose: 1 mg Atenolol (Tenormin) 50 mg PO BID [facility] Last Admin: 08/02/18 10:05 Dose: 50 mg Clonidine HCl (Catapres) 0.2 mg PO BID [facility] Last Admin: 08/02/18 10:05 Dose: 0.2 mg Clopidogrel Bisulfate (Plavix) 75 mg PO DAILY [facility] Last Admin: 08/02/18 10:06 Dose: 75 mg Docusate Sodium (Colace) 100 mg PO BID [facility] Last Admin: 08/02/18 10:05 Dose: 100 mg Famotidine (Pepcid) 20 mg PO DAILY [facility] Last Admin: 08/02/18 10:05 Dose: 20 mg Hydralazine HCl (Apresoline) 50 mg PO BID [facility] Last Admin: 08/02/18 10:05 Dose: 50 mg Doxycycline Hyclate 100 mg/ (Sodium Chloride) 100 mls @ 100 mls/hr IVPB Q12H [facility]; Protocol Last Admin: 08/02/18 00:30 Dose: 100 mls/hr Levothyroxine Sodium (Synthroid) 75 mcg PO DAILY@0630 [facility] Last Admin: 08/02/18 05:30 Dose: 75 mcg Lisinopril (Zestril) 40 mg PO DAILY [facility] Last Admin: 08/02/18 10:05 Dose: 40 mg Mirtazapine (Remeron) 30 mg PO [facility] Last Admin: 08/01/18 22:01 Dose: 30 mg Multivitamins/Minerals (Therapeutic-M Tab) 1 tab PO BID [facility] Last Admin: 08/02/18 10:06 Dose: 1 tab Potassium Chloride (Klor-Con 10) 10 meq PO BID [facility] Last Admin: 08/02/18 10:05 Dose: 10 meq Rosuvastatin Calcium (Crestor) 5 mg PO [facility] Last Admin: 08/01/18 22:00 Dose: 5 mg - Labs Labs: 08/02/18 07:53 08/02/18 07:53 Assessment and Plan (1) Sepsis Status: Acute (2) Generalized weakness Status: Acute (3) Hypertension Status: Chronic (4) UTI (urinary tract infection) Status: Acute
[2018-08-02 16:27] VITALS: BP 156/85; PULSE 67; O2SAT 97
--- NOTE | 2018-08-02 17:12 | CP.PCM.PN ---
Subjective - Date & Time of Evaluation Date of Evaluation: 08/02/18 Time of Evaluation: 17:12 Objective - Vital Signs/Intake and Output Vital Signs (last 24 hours): Temp Pulse Resp BP Pulse Ox 98.1 F 67 20 156/85 H 97 08/02/18 16:00 08/02/18 16:00 08/02/18 16:00 08/02/18 16:00 08/02/18 16:00 Intake and Output: 08/02/18 08/02/18 06:59 18:59 Intake Total 300 400 Balance 300 400 - Medications Medications: Current Medications Acetaminophen (Tylenol 325mg Tab) 650 mg PO Q6 PRN PRN Reason: Pain, moderate (4-7) Last Admin: 08/02/18 05:19 Dose: 650 mg Alprazolam (Xanax) 1 mg PO [facility] Last Admin: 08/01/18 22:00 Dose: 1 mg Atenolol (Tenormin) 50 mg PO BID [facility] Last Admin: 08/02/18 10:05 Dose: 50 mg Clonidine HCl (Catapres) 0.2 mg PO BID [facility] Last Admin: 08/02/18 10:05 Dose: 0.2 mg Clopidogrel Bisulfate (Plavix) 75 mg PO DAILY [facility] Last Admin: 08/02/18 10:06 Dose: 75 mg Docusate Sodium (Colace) 100 mg PO BID [facility] Last Admin: 08/02/18 10:05 Dose: 100 mg Famotidine (Pepcid) 20 mg PO DAILY [facility] Last Admin: 08/02/18 10:05 Dose: 20 mg Hydralazine HCl (Apresoline) 50 mg PO BID [facility] Last Admin: 08/02/18 10:05 Dose: 50 mg Doxycycline Hyclate 100 mg/ (Sodium Chloride) 100 mls @ 100 mls/hr IVPB Q12H [facility]; Protocol Last Admin: 08/02/18 14:10 Dose: 100 mls/hr Levothyroxine Sodium (Synthroid) 75 mcg PO DAILY@0630 [facility] Last Admin: 08/02/18 05:30 Dose: 75 mcg Lisinopril (Zestril) 40 mg PO DAILY [facility] Last Admin: 08/02/18 10:05 Dose: 40 mg Mirtazapine (Remeron) 30 mg PO HS [facility] Last Admin: 08/01/18 22:01 Dose: 30 mg Multivitamins/Minerals (Therapeutic-M Tab) 1 tab PO BID [facility] Last Admin: 08/02/18 10:06 Dose: 1 tab Potassium Chloride (Klor-Con 10) 10 meq PO BID [facility] Last Admin: 08/02/18 10:05 Dose: 10 meq Rosuvastatin Calcium (Crestor) 5 mg PO [facility] Last Admin: 08/01/18 22:00 Dose: 5 mg - Labs Labs: 08/02/18 07:53 08/02/18 07:53 Assessment and Plan - Assessment and Plan (Free Text) Assessment: PLACE UNDER THE SERVICE OF DR AIKEN AT [facility]------CALL FOR ADMITTING ORDER FOLLOW UP WITH DR FOLEY -----CALL FOR APPOINTMENT CONTINUE HOME MEDICATION NEW PRESCRIPTIOON GIVEN DOXY 100 MG IVPB FOR 5 DAYS ACTIVITY TOLERATED CALL DR AIKEN FOR FURTHER ORDERS
--- NOTE | 2018-08-02 18:19 | CP.PCM.PN ---
Subjective - Date & Time of Evaluation Date of Evaluation: 08/02/18 Time of Evaluation: 18:19 - Subjective Subjective: CHIEF COMPLAINTS TODAY : AFEBRILE feelig better NO NEW COMPLAINTS ROS. HEENT : N. Resp : No cough, wheezing ,pleuritic CP ,or hemoptysis Cardio : No anginal CP, PND, orthopnea, palpitation GI : No abd.pain, n/v ,diarrhea or GI bleeding . 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 Musculoskel : No joint swelling , Derm : No rash Psych : Normal affect. Ext : No swelling ,calf pain PE. Pt. is alert awake in no distress. V.S As noted in the chart Head ,ear nose,throat and eyes : Normal. Neck : Supple with normal carotids. Lungs: Clear air entry. Heart : S1 & S2 normal with S4. No murmur. Abd : Soft non tender with normal bowel sounds. Neuro : Moves all ext. with no localized deficit. Ext : pos edema with intact pulses.Non tender calves Derm : No rashes or decubitus ulcer. LABS/RADIOLOGY: WBC 19.1 improving. urine culture is positive for E. coli. -PANSENSITIVE CT of the abdomen is negative for lymphadenopathy./LT KIDNEY CYST 4,0CM Objective - Vital Signs/Intake and Output Vital Signs (last 24 hours): Temp Pulse Resp BP Pulse Ox 98.1 F 67 20 156/85 H 97 08/02/18 16:00 08/02/18 16:00 08/02/18 16:00 08/02/18 16:00 08/02/18 16:00 Intake and Output: 08/02/18 08/02/18 06:59 18:59 Intake Total 300 400 Balance 300 400 - Medications Medications: Current Medications Acetaminophen (Tylenol 325mg Tab) 650 mg PO Q6 PRN PRN Reason: Pain, moderate (4-7) Last Admin: 08/02/18 05:19 Dose: 650 mg Alprazolam (Xanax) 1 mg PO HS [facility] Last Admin: 08/01/18 22:00 Dose: 1 mg Atenolol (Tenormin) 50 mg PO BID [facility] Last Admin: 08/02/18 17:42 Dose: 50 mg Clonidine HCl (Catapres) 0.2 mg PO BID [facility] Last Admin: 08/02/18 17:42 Dose: 0.2 mg Clopidogrel Bisulfate (Plavix) 75 mg PO DAILY [facility] Last Admin: 08/02/18 10:06 Dose: 75 mg Docusate Sodium (Colace) 100 mg PO BID [facility] Last Admin: 08/02/18 17:42 Dose: 100 mg Famotidine (Pepcid) 20 mg PO DAILY [facility] Last Admin: 08/02/18 10:05 Dose: 20 mg Hydralazine HCl (Apresoline) 50 mg PO BID [facility] Last Admin: 08/02/18 17:42 Dose: 50 mg Doxycycline Hyclate 100 mg/ (Sodium Chloride) 100 mls @ 100 mls/hr IVPB Q12H [facility]; Protocol Last Admin: 08/02/18 14:10 Dose: 100 mls/hr Levothyroxine Sodium (Synthroid) 75 mcg PO DAILY@0630 [facility] Last Admin: 08/02/18 05:30 Dose: 75 mcg Lisinopril (Zestril) 40 mg PO DAILY [facility] Last Admin: 08/02/18 10:05 Dose: 40 mg Mirtazapine (Remeron) 30 mg PO [facility] Last Admin: 08/01/18 22:01 Dose: 30 mg Multivitamins/Minerals (Therapeutic-M Tab) 1 tab PO BID [facility] Last Admin: 08/02/18 17:42 Dose: 1 tab Potassium Chloride (Klor-Con 10) 10 meq PO BID [facility] Last Admin: 08/02/18 17:42 Dose: 10 meq Rosuvastatin Calcium (Crestor) 5 mg PO [facility] Last Admin: 08/01/18 22:00 Dose: 5 mg - Labs Labs: 08/02/18 07:53 08/02/18 07:53 Assessment and Plan (1) Sepsis Status: Acute (2) Lymphocytosis Status: Acute (3) Generalized weakness Status: Acute (4) Altered mental status Status: Acute - Assessment and Plan (Free Text) Plan: Continue IV antibiotics . IV VIBRAMYCIN 100 MG BY MOUTH TWICE A DAY X 5 DAYS MORE IN SUBACUTE RE HABILITATION.STARTING ON 08/03/18 REPEAT UA/ URINE CULTURE CLEAN CATCH IN SUBACUTE REHABILITATION IF NOT ALREADY DONE. pATIENT FOR SUBACUTE REHABILITATION TODAY REPORTED. CASE DISCUSSED WITH THE STAFF AND PMD. PATIENT WILL BE FOLLOWED BY pmd OUTPATIENT IN SUBACUTE REHABILITATION.
--- NOTE | 2018-08-03 14:14 | CP.PCM.DIS ---
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 Kenyetta score=12 Time Spent in preparation of Discharge (in minutes): 36 Diagnosis - Discharge Diagnosis (1) Sepsis Status: Acute (2) Generalized weakness Status: Acute (3) Hypertension Status: Chronic (4) UTI (urinary tract infection) Status: Acute Hospital Course - Lab Results Lab Results: Micro Results 07/28/18 08:18 Blood Blood Culture - Final NO GROWTH AFTER 5 DAYS 07/28/18 08:18 Blood Gram Stain - Final TEST NOT PERFORMED 07/28/18 08:18 Blood Blood Culture - Final NO GROWTH AFTER 5 DAYS 07/28/18 08:18 Blood Gram Stain - Final TEST NOT PERFORMED 07/28/18 19:05 Urine Urine Culture - Final Escherichia Coli Most Recent Lab Values WBC 19.4 K/uL (4.8-10.8) H 08/02/18 07:53 RBC 4.10 Mil/uL (3.80-5.20) 08/02/18 07:53 Hgb 12.7 g/dL (11.0-16.0) 08/02/18 07:53 Hct 38.5 % (34.0-47.0) 08/02/18 07:53 MCV 94.0 fL (81.0-99.0) 08/02/18 07:53 MCH 31.0 pg (27.0-31.0) 08/02/18 07:53 MCHC 33.0 g/dL (33.0-37.0) 08/02/18 07:53 RDW 16.1 % (11.5-14.5) H 08/02/18 07:53 Plt Count 139 K/uL (130-400) 08/02/18 07:53 MPV 8.9 fL (7.2-11.7) 08/02/18 07:53 Neut % (Auto) 19.8 % (50.0-75.0) L 08/02/18 07:53 Lymph % (Auto) 75.1 % (20.0-40.0) H 08/02/18 07:53 Kern % (Auto) 3.3 % (0.0-10.0) 08/02/18 07:53 Eos % (Auto) 1.2 % (0.0-4.0) 08/02/18 07:53 Baso % (Auto) 0.6 % (0.0-2.0) 08/02/18 07:53 Neut # (Auto) 3.9 K/uL (1.8-7.0) 08/02/18 07:53 Lymph # (Auto) 14.6 K/uL (1.0-4.3) H 08/02/18 07:53 Kern # (Auto) 0.6 K/uL (0.0-0.8) 08/02/18 07:53 Eos # (Auto) 0.2 K/uL (0.0-0.7) 08/02/18 07:53 Baso # (Auto) 0.1 K/uL (0.0-0.2) 08/02/18 07:53 Neutrophils % (Manual) 13 % (50-75) L 08/02/18 07:53 Lymphocytes % (Manual) 68 % (20-40) H 08/02/18 07:53 Reactive Lymphs % 14 % (0-0) H 08/02/18 07:53 Monocytes % (Manual) 2 % (0-10) 08/02/18 07:53 Eosinophils % (Manual) 2 % (0-4) 08/02/18 07:53 Basophils % (Manual) 1 % (0-2) 08/02/18 07:53 Platelet Estimate Normal (NORMAL) 08/02/18 07:53 Large Platelets Present 08/01/18 08:06 Giant Platelets Present 08/02/18 07:53 RBC Morphology Normal 07/30/18 11:53 Poikilocytosis (manual Slight 08/02/18 07:53 Anisocytosis (manual) Slight 08/02/18 07:53 Ovalocytes Slight 08/02/18 07:53 Priti Cells Slight 08/02/18 07:53 Sodium 139 mmol/L (132-148) 08/02/18 07:53 Potassium 4.5 mmol/L (3.6-5.2) 08/02/18 07:53 Chloride 107 mmol/L (98-107) 08/02/18 07:53 Carbon Dioxide 29 mmol/L (22-30) 08/02/18 07:53 Anion Gap 7 (10-20) L 08/02/18 07:53 BUN 16 mg/dL (7-17) 08/02/18 07:53 Creatinine 0.8 mg/dL (0.7-1.2) 08/02/18 07:53 Est GFR ( Amer) > 60 08/02/18 07:53 Est GFR (Non-Af Amer) > 60 08/02/18 07:53 Random Glucose 94 mg/dL (65-105) 08/02/18 07:53 Calcium 8.7 mg/dl (8.6-10.4) 08/02/18 07:53 Magnesium 2.5 mg/dL (1.6-2.3) H 07/28/18 18:12 Total Bilirubin 0.4 mg/dL (0.2-1.3) 08/02/18 07:53 AST 64 U/L (14-36) H 08/02/18 07:53 ALT 62 U/L (9-52) H 08/02/18 07:53 Alkaline Phosphatase 80 U/L (38-126) 08/02/18 07:53 Lactate Dehydrogenase 589 U/L (313-618) 07/30/18 11:53 Total Protein 5.7 g/dL (6.3-8.3) L 08/02/18 07:53 Albumin 3.5 g/dL (3.5-5.0) 08/02/18 07:53 Globulin 2.2 gm/dL (2.2-3.9) 08/02/18 07:53 Albumin/Globulin Ratio 1.6 (1.0-2.1) 08/02/18 07:53 Lipase 27 U/L (23-300) 07/28/18 18:12 Procalcitonin < 0.05 NG/ML (0.19-0.49) L 07/30/18 11:53 Urine Color Straw (YELLOW) 07/28/18 18:12 Urine Clarity Clear (Clear) 07/28/18 18:12 Urine pH 6.0 (5.0-8.0) 07/28/18 18:12 Ur Specific Mcdaniels 1.004 (1.003-1.030) 07/28/18 18:12 Urine Protein Negative mg/dL (NEGATIVE) 07/28/18 18:12 Urine Glucose (UA) Normal mg/dL (Normal) 07/28/18 18:12 Urine Ketones Negative mg/dL (NEGATIVE) 07/28/18 18:12 Urine Blood Negative (NEGATIVE) 07/28/18 18:12 Urine Nitrate Negative (NEGATIVE) 07/28/18 18:12 Urine Bilirubin Negative (NEGATIVE) 07/28/18 18:12 Urine Urobilinogen Normal mg/dL (0.2-1.0) 07/28/18 18:12 Ur Leukocyte Esterase 2+ Benji/uL (Negative) H 07/28/18 18:12 Urine WBC (Auto) 16 /hpf (0-5) H 07/28/18 18:12 Urine RBC (Auto) 3 /hpf (0-3) 07/28/18 18:12 Ur Squamous Epith Cells 1 /hpf (0-5) 07/28/18 18:12 Ur Transition Epith Cell 1 /hpf (0-3) 07/28/18 18:12 Urine Bacteria Few (<OCC) H 07/28/18 18:12 Hepatitis A IgM Ab Negative (NEGATIVE) 07/30/18 11:53 Hep Bs Antigen Negative (NEGATIVE) 07/30/18 11:53 Hep B Core IgM Ab Negative (NEGATIVE) 07/30/18 11:53 Hepatitis C Antibody Negative (NEGATIVE) 07/30/18 11:53 - Hospital Course Hospital Course: 82 y/o female, with PMHx of hypertension, coronary artery disease,vertigo and stroke, comes in complaining of several days of fatigue and generalized weakness. 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 Patient also complains of swelling in both of her legs that is chronic and improves when elevated, as well as some abdominal pain. States she spends most of her time sitting on a chair and denies any chest pain or SOB. Patient reports she has history of constipation and takes stool softeners. Patient was admitted on the medical floor Septic workup showed patient had E. coli in the urine which was sensitive to antibiotic, cephalosporin. ID consult was obtained and patient was continued IV antibiotic. After the antibiotics patient mental status and physical condition improved but patient still had weakness which is generalized. Patient needed 5 6 more days of IV antibiotic and patient was referred to rehab for continuation of her treatment. Discharge Exam - Head Exam Head Exam: NORMAL INSPECTION Discharge Plan - Follow Up Plan Condition: STABLE Disposition: REHAB FACILITY/REHAB UNIT Instructions: Sepsis (DC), Leukocytosis (DC), Weakness (ED) Additional Instructions: PLACE UNDER THE SERVICE OF DR AIKEN AT [facility]------CALL FOR ADMITTING ORDER FOLLOW UP WITH DR RUTH -----CALL FOR APPOINTMENT CONTINUE HOME MEDICATION NEW PRESCRIPTIOON GIVEN DOXY 100 MG IVPB FOR 5 DAYS ACTIVITY TOLERATED CALL DR AIKEN FOR FURTHER ORDERS Referrals: Devin Ruth MD [Staff Provider] - Jayshree Aiken MD [Staff Provider] -
== END 2018-08-02 20:14 | DRG 872 ==
LOC: C.ER 16:21 → C.3T 20:18
PROVIDERS: ADMIT Internal Medicine Cardiovascular Disease; ATTEND Internal Medicine Cardiovascular Disease
DX: A41.9 Sepsis, unspecified organism (principal); N39.0 Urinary tract infection, site not specified; Z86.73 Personal history of transient ischemic attack (TIA), and cerebral infarction without residual deficits; Z85.828 Personal history of other malignant neoplasm of skin; J44.9 Chronic obstructive pulmonary disease, unspecified; I25.10 Atherosclerotic heart disease of native coronary artery without angina pectoris; I10 Essential (primary) hypertension; H91.90 Unspecified hearing loss, unspecified ear; G47.30 Sleep apnea, unspecified; G30.9 Alzheimer's disease, unspecified; F02.80 Dementia in other diseases classified elsewhere, unspecified severity, without behavioral disturbance, psychotic disturbance, mood disturbance, and anxiety; E03.9 Hypothyroidism, unspecified; F31.9 Bipolar disorder, unspecified

== ENCOUNTER 2018-11-18 06:02 | Emergency (ER) | payer MEDICARE, MEDICAID ==
[2018-11-18 06:03] VITALS: BMI 29.0
[2018-11-18 06:16] VITALS: TEMP 98.3
--- NOTE | 2018-11-18 06:55 | C.PDOC ---
Chief Complaint (Nursing): Medical Clearance Past Medical History Vital Signs: Last Vital Signs Temp 98.3 F 11/18/18 06:13 Pulse 67 11/18/18 06:53 Resp 22 11/18/18 06:53 BP 185/79 H 11/18/18 06:53 Pulse Ox 97 11/18/18 06:53 - Medical History PMH: Alzheimer's Disease (Mild dementia and confusion noted), Anxiety, Arthritis (b/l knees and ankles), Asthma, Back Problems (scaitica), Bipolar Disorder (Patient used to take multiple medications, being seen by a psychiatrist), CAD, Cardia Arrhythmia (palpitation), COPD, CVA, Dementia, Diverticulitis, Gastritis, HTN, Hypercholesterolemia, Hypothyroidism, Osteoporosis, Sleep Apnea ("in the past") Denies: Chronic Kidney Disease Surgical History: Appendectomy, Cholecystectomy, - [facility] Procedures COLONOSCOPY (03/28/15) INJECT/INFUSE NEC (01/01/14) OCCUPATIONAL THERAPY (05/13/13) PHYSICAL THERAPY NEC (05/13/13) - Social History Hx Tobacco Use: No Hx Alcohol Use: No Hx Substance Use: No - Immunization History Hx Tetanus Toxoid Vaccination: Yes Hx Influenza Vaccination: Yes Hx Pneumococcal Vaccination: No ED Course And Treatment O2 Sat by Pulse Oximetry: 97 Disposition - Disposition
--- NOTE | 2018-11-18 06:57 | C.PDOC ---
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 Patient also reports abdominal pain. Additional history limited secondary to patient's history of dementia. <Jesu White - Last Filed: 11/18/18 13:53> <Kurt Judge DO - Last Filed: 11/18/18 11:33> History Per: Patient History/Exam Limitations: other (dementia ) Onset/Duration Of Symptoms: Sudden Onset Current Symptoms Are (Timing): Still Present <Jesu White - Last Filed: 11/18/18 13:53> Chief Complaint (Nursing): Medical Clearance Past Medical History Vital Signs: Last Vital Signs Temp 98.3 F 11/18/18 06:13 Pulse 76 11/18/18 10:33 Resp 15 11/18/18 10:33 BP 137/80 11/18/18 10:33 Pulse Ox 96 11/18/18 10:33 - [facility] Procedures COLONOSCOPY (03/28/15) INJECT/INFUSE NEC (01/01/14) OCCUPATIONAL THERAPY (05/13/13) PHYSICAL THERAPY NEC (05/13/13) <Kurt Judge DO - Last Filed: 11/18/18 11:33> Reviewed: Historical Data, Nursing Documentation, Vital Signs Vital Signs: Last Vital Signs Temp 98.3 F 11/18/18 06:13 Pulse 67 11/18/18 06:53 Resp 22 11/18/18 06:53 BP 185/79 H 11/18/18 06:53 Pulse Ox 97 11/18/18 06:53 - Medical History PMH: Alzheimer's Disease (Mild dementia and confusion noted), Anxiety, Arthritis (b/l knees and ankles), Asthma, Back Problems (scaitica), Bipolar Disorder (Patient used to take multiple medications, being seen by a psychiatrist), CAD, Cardia Arrhythmia (palpitation), COPD, CVA, Dementia, Diverticulitis, Gastritis, HTN, Hypercholesterolemia, Hypothyroidism, Osteoporosis, Sleep Apnea ("in the past") Denies: Chronic Kidney Disease Surgical History: Appendectomy, Cholecystectomy, - [facility] Procedures COLONOSCOPY (03/28/15) INJECT/INFUSE NEC (01/01/14) OCCUPATIONAL THERAPY (05/13/13) PHYSICAL THERAPY NEC (05/13/13) Family History: States: Unknown Family Hx - Social History Hx Tobacco Use: No Hx Alcohol Use: No Hx Substance Use: No - Immunization History Hx Tetanus Toxoid Vaccination: Yes Hx Influenza Vaccination: Yes Hx Pneumococcal Vaccination: No <Jesu White R - Last Filed: 11/18/18 13:53> Review Of Systems Review Of Systems: ROS cannot be obtained secondary to pt's inabilty to answer questions. <Jesu White R - Last Filed: 11/18/18 13:53> Physical Exam - Physical Exam Appears: Non-toxic, No Acute Distress Skin: Normal Color, Warm, Dry Head: Atraumatic, Normacephalic Eye(s): bilateral: Normal Inspection, PERRL, EOMI Ear(s): Bilateral: Normal Nose: Normal, No Discharge Oral Mucosa: Moist Throat: Normal, No Erythema, No Exudate Neck: Supple Chest: Symmetrical, No Deformity, No Tenderness Cardiovascular: Rhythm Regular, No Murmur Respiratory: Normal Breath Sounds, No Rales, No Rhonchi, No Wheezing Gastrointestinal/Abdominal: Soft, Tenderness (epigastric and bilateral lower quadrants ), No Guarding, No Rebound Extremity: Normal ROM, Capillary Refill (less than 2 seconds ), Other (+1 edema to bilateral lower extremities ) Pulses: Left Dorsalis Pedis: Normal, Right Dorsalis Pedis: Normal Neurological/Psych: Other (awake, alert ) <Jesu White R - Last Filed: 11/18/18 13:53> ED Course And Treatment - Laboratory Results Result Diagrams: 11/18/18 06:56 11/18/18 06:56 Lab Results: Total Bilirubin 0.3 mg/dL (0.2-1.3) 11/18/18 06:56 AST 37 U/L (14-36) H D 11/18/18 06:56 ALT 32 U/L (9-52) 11/18/18 06:56 Alkaline Phosphatase 102 U/L (38-126) 11/18/18 06:56 Total Protein 6.9 g/dL (6.3-8.3) 11/18/18 06:56 Albumin 4.2 g/dL (3.5-5.0) 11/18/18 06:56 Globulin 2.7 gm/dL (2.2-3.9) 11/18/18 06:56 Albumin/Globulin Ratio 1.6 (1.0-2.1) 11/18/18 06:56 Lipase 16 U/L (23-300) L 11/18/18 06:56 Urine Color Straw (YELLOW) 11/18/18 07:41 Urine Clarity Clear (Clear) 11/18/18 07:41 Urine pH 7.0 (5.0-8.0) 11/18/18 07:41 Ur Specific [place] 1.003 (1.003-1.030) 11/18/18 07:41 Urine Protein Negative mg/dL (NEGATIVE) 11/18/18 07:41 Urine Glucose (UA) Normal mg/dL (Normal) 11/18/18 07:41 Urine Ketones Negative mg/dL (NEGATIVE) 11/18/18 07:41 Urine Blood Trace (NEGATIVE) 11/18/18 07:41 Urine Nitrate Negative (NEGATIVE) 11/18/18 07:41 Urine Bilirubin Negative (NEGATIVE) 11/18/18 07:41 Urine Urobilinogen Normal mg/dL (0.2-1.0) 11/18/18 07:41 Ur Leukocyte Esterase Neg Benji/uL (Negative) 11/18/18 07:41 Urine WBC (Auto) < 1 /hpf (0-5) 11/18/18 07:41 Urine RBC (Auto) 3 /hpf (0-3) 11/18/18 07:41 Ur Squamous Epith Cells < 1 /hpf (0-5) 11/18/18 07:41 Urine Bacteria Rare (<OCC) 11/18/18 07:41 <Kurt Judge DO - Last Filed: 11/18/18 11:33> - Laboratory Results Result Diagrams: 11/18/18 06:56 11/18/18 06:56 O2 Sat by Pulse Oximetry: 97 Progress Note: Bloodwork, UA, CT Head, CT A/P ordered and reviewed. <Jesu White - Last Filed: 11/18/18 13:53> Medical Decision Making Medical Decision Making: CT scan negative for any acute pathology. Patient is feeling better and eating at bedside. Spoke to patients PMD Dr. Aiken who recommended to discharge patient. Patient is to follow up with him early next week. Patient understands plan. <Kurt Judge DO - Last Filed: 11/18/18 11:33> Disposition <Kurt Judge DO - Last Filed: 11/18/18 11:33> - Disposition Disposition Time: 07:00 <Jesu White - Last Filed: 11/18/18 13:53> - Disposition Referrals: Jayshree Aiken MD [Staff Provider] - Disposition: HOME/ ROUTINE Condition: STABLE Additional Instructions: SAFIA FAITH, thank you for letting us take care of you today. The emergency medical care you received today was directed at your acute symptoms. If you were prescribed any medication, please fill it and take as directed. It may take several days for your symptoms to resolve. Return to the Emergency Department if your symptoms worsen, do not improve, or if you have any other problems. Please contact your doctor or call one of the physicians/clinics you have been referred to that are listed on the Patient Visit Information form that is included in your discharge packet. Bring any paperwork you were given at discharge with you along with any medications you are taking to your follow up visit. Our treatment cannot replace ongoing medical care by a primary care provider outside of the emergency department. Thank you for allowing the [facility] team to be part of your care today. Follow up with your primary care doctor in 2-3 days for re-evaluation and further management. Instructions: Acute Abdomen (Belly Pain), Adult (DC) Forms: Code Rebel (Mozambican) - Clinical Impression Clinical Impression: Abdominal pain - Scribe Statement The provider has reviewed the documentation as recorded by the Scribe (Lalita Nicole) Provider Attestation: All medical record entries made by the Scribe were at my direction and personally dictated by me. I have reviewed the chart and agree that the record accurately reflects my personal performance of the history, physical exam, medical decision making, and the department course for this patient. I have also personally directed, reviewed, and agree with the discharge instructions and dis position. <Jesu White - Last Filed: 11/18/18 13:53>
[2018-11-18 07:14] LABS: BASO % 0.2 % (0.0-2.0); EOS # 0.3 K/uL (0.0-0.7); EOS % 1.8 % (0.0-4.0); HEMOGLOBIN 13.9 g/dL (11.0-16.0); LYMPH # 13.3 K/uL (1.0-4.3); LYMPH % 79.9 % (20.0-40.0); MEAN CELL VOLUME 93.7 fL (81.0-99.0); MEAN CORPUSCULAR HEMOGLOBIN 30.7 pg (27.0-31.0); MEAN CORPUSCULAR HGB CONC 32.8 g/dL (33.0-37.0); MEAN PLATELET VOLUME 8.9 fL (7.2-11.7); MONO # 0.4 K/uL (0.0-0.8); MONO % 2.6 % (0.0-10.0); NEUT # 2.6 K/uL (1.8-7.0); NEUT % 15.5 % (50.0-75.0); NRBC % 0.1 % (0.0-2.0); PLATELET COUNT 144 K/uL (130-400); RBC 4.54 Mil/uL (3.80-5.20); RED CELL DISTRIBUTION WIDTH 15.3 % (11.5-14.5); WHITE BLOOD COUNT 16.6 K/uL (4.8-10.8)
[2018-11-18 08:03] LABS: SQUAMOUS EPITHIAL < 1 /hpf (0-5); URINE BACTERIA RARE (<OCC); URINE BILIRUBIN NEGATIVE (NEGATIVE); URINE CLARITY Clear (Clear); URINE COLOR Straw (YELLOW); URINE GLUCOSE (UA) NORMAL (Normal); URINE LEUKOCYTE ESTERASE NEG Leu/uL (Negative); URINE PROTEIN NEGATIVE (NEGATIVE); URINE UROBILINOGEN NORMAL mg/dL (0.2-1.0)
[2018-11-18 08:08] LABS: ALB/GLOB RATIO 1.6 (1.0-2.1); ALBUMIN 4.2 g/dL (3.5-5.0); ALT/SGPT 32 U/L (9-52); AST/SGOT 37 U/L (14-36); BLOOD UREA NITROGEN 11 mg/dL (7-17); CALCIUM 9.4 mg/dl (8.6-10.4); GFR NON-AFRICAN AMERICAN > 60; LIPASE 16 U/L (23-300)
[2018-11-18 08:11] LABS: URINE BLOOD TRACE (NEGATIVE)
[2018-11-18] MEDS ORDERED: Iodixanol 320 MG/ML 100 ML BOTTLE IV ONE (08:28)
[2018-11-18 08:40] LABS: ANISOCYTOSIS SLIGHT; EOSINOPHIL 2 % (0-4); LYMPHOCYTE 78 % (20-40); MONOCYTE 3 % (0-10); NEUTROPHIL 17 % (50-75); NUCLEATED RED BLOOD CELL 1 % (0-0); PLATELET ESTIMATE NORMAL (NORMAL); POIKILOCYTOSIS SLIGHT; TOTAL CELLS COUNTED 100
[2018-11-18 08:41] LABS: SMUDGE CELLS PRESENT
--- NOTE | 2018-11-18 09:25 | RAD ---
Date of service: 11/18/2018 HISTORY: r/o infiltrate COMPARISON: 07/28/2018. FINDINGS: LUNGS: The lungs are well inflated. There is mild pulmonary venous congestion. PLEURA: No pleural effusions or pneumothorax. CARDIOVASCULAR: Persistent moderate cardiomegaly. There are aortic atherosclerotic calcifications present. OSSEOUS STRUCTURES: Within normal limits for the patient's age. VISUALIZED UPPER ABDOMEN: Normal. OTHER FINDINGS: None. IMPRESSION: No active pulmonary disease. Persistent moderate cardiomegaly and mild pulmonary venous congestion.
--- NOTE | 2018-11-18 10:07 | CT ---
Date of service: 11/18/2018 PROCEDURE: CT HEAD WITHOUT CONTRAST. HISTORY: Headache COMPARISON: 07/14/2016. TECHNIQUE: Axial computed tomography images were obtained through the head/brain without intravenous contrast. Radiation dose: Total exam DLP = 966.16 mGy-cm. This CT exam was performed using one or more of the following dose reduction techniques: Automated exposure control, adjustment of the mA and/or kV according to patient size, and/or use of iterative reconstruction technique. FINDINGS: HEMORRHAGE: No intracranial hemorrhage. BRAIN: There are mild chronic microangiopathic changes there are scattered few coarse calcifications in the right parietal and temporal lobes and left parietal lobe, likely sequela of remote infection/inflammation. There is no mass, mass effect or abnormal extra-axial fluid collection. There is no territorial infarction. The midline sagittal structures are normal. VENTRICLES: There is mild age-related global parenchymal volume loss and proportionate enlargement of the ventricles and cortical sulci. CALVARIUM: There is no calvarial fracture or extracranial soft tissue swelling. PARANASAL SINUSES: There is moderate polypoid mucosal thickening in the left anterior sphenoid sinus and mild mucosal thickening in the right air cells. MASTOID AIR CELLS: Predominantly clear. OTHER FINDINGS: None. IMPRESSION: No acute intracranial abnormality. Mild chronic microangiopathic changes and mild age-related global parenchymal volume loss.
--- NOTE | 2018-11-18 10:36 | CT ---
Date of service: 11/18/2018 PROCEDURE: CT Abdomen and Pelvis with contrast HISTORY: abd pain COMPARISON: CT of the abdomen and pelvis without contrast performed 07/29/18 TECHNIQUE: Contrast dose: 100 mL Visipaque 320 IV Radiation dose: Total exam DLP = 1207.06 mGy-cm. This CT exam was performed using one or more of the following dose reduction techniques: Automated exposure control, adjustment of the mA and/or kV according to patient size, and/or use of iterative reconstruction technique. FINDINGS: LOWER THORAX: Bibasilar atelectasis. No visible pleural effusion or pneumothorax. Moderate hiatal hernia. LIVER: Unremarkable. GALLBLADDER AND BILE DUCTS: Unremarkable. PANCREAS: Atrophy. Mild peripancreatic fluid. SPLEEN: Unremarkable. ADRENALS: Unremarkable. KIDNEYS AND URETERS: The kidneys enhance symmetrically. No obstructing calculus identified. 4.1 cm left lower pole renal hypodense lesion measures approximately 22 Hounsfield units, higher than expected for simple cyst. Mild fullness of bilateral renal collecting systems. VASCULATURE: No aortic aneurysm. Atherosclerotic calcifications of the aorta. BOWEL: Stomach is nondistended. Lack of oral contrast limits evaluation for bowel pathology. Bowel loops appear within normal limits of caliber without evidence of obstruction. Diverticulosis without CT evidence of acute diverticulitis. APPENDIX: The appendix appears within normal limits of caliber. No secondary signs of acute appendicitis. PERITONEUM: No significant free fluid. No definite free air. LYMPH NODES: No bulky adenopathy identified. BLADDER: Unremarkable. REPRODUCTIVE: The uterus is present. Probable 12 mm right ovarian cyst. BONES: Degenerative changes. Scoliosis. OTHER FINDINGS: None. IMPRESSION: Pancreatic atrophy. Mild peripancreatic fluid. Correlate with amylase and lipase in order to exclude possibility of acute pancreatitis. 4.1 cm left lower pole renal hypodense lesion measures approximately 22 HU, higher than expected for simple cyst. Mild fullness of bilateral renal collecting systems. Suggest renal ultrasound for further characterization if indicated. Probable 12 mm right ovarian cyst. Diverticulosis without CT evidence of acute diverticulitis. Bibasilar atelectasis. Moderate hiatal hernia. Additional findings as above.
[2018-11-18 13:24] VITALS: BP 157/73; PULSE 78; RESP 16
[2018-11-18 13:53] VITALS: O2SAT 97
== END 2018-11-18 13:24 | disposition home or self-care (01) ==
LOC: C.ER 06:02
DX: R10.9 Unspecified abdominal pain (principal); E03.9 Hypothyroidism, unspecified; E78.00 Pure hypercholesterolemia, unspecified; F02.80 Dementia in other diseases classified elsewhere, unspecified severity, without behavioral disturbance, psychotic disturbance, mood disturbance, and anxiety; G30.9 Alzheimer's disease, unspecified; I10 Essential (primary) hypertension; I25.10 Atherosclerotic heart disease of native coronary artery without angina pectoris; J44.9 Chronic obstructive pulmonary disease, unspecified; Z86.73 Personal history of transient ischemic attack (TIA), and cerebral infarction without residual deficits
CPT/HCPCS: 70450; 71045; 74177; 80053; 81001; 82948; 83690; 85025; 87086; 99285; Q9967